=== PATIENT | male | born 1955 | race Caucasian/White ===

== ENCOUNTER → 2018-02-13 15:58 | Outpatient (CLI) | payer OTHER, SELFPAY ==
[2018-02-13 17:51] LABS: Absolute Lymphocyte Count 2.37 X10^3/ul (0.83-4.51); Basophil# 0.07 X10^3/uL; Basophil% 0.9 % (0-1); Eosinophil# 0.37 X10^3/uL; Eosinophils% 4.9 % (0-5); Hematocrit 42.9 % (40-54); Hemoglobin 14.6 g/dl (13.0-16.5); Lymphocyte # 2.37 X10^3/ul (4.0); Lymphocyte % 31.4 % (19-41); Mean Corpuscular Hgb 31.2 pg (27.0-32.0); Mean Corpuscular Volume 91.7 fL (80-94); Mean Platelet Vol. 9.8 fl (6.2-12.0); Monocyte# 0.73 X10^3/uL; Monocyte% 9.7 % (0-10); Platelet Count 235 K/mm3 (150-450); RBC Distribution Width CV 13.2 % (11.6-14.6); Red Blood Count 4.68 M/mm3 (4.6-6.2); White Blood Count 7.6 K/mm3 (4.4-11.0)
[2018-02-13 17:55] LABS: POSITIVE COUNT NO; POSITIVE DIFFERENTIAL NO; POSITIVE MORPHOLOGY NO
== END ==
PROVIDERS: Family Provider Internal Medicine; PCP Internal Medicine; Visit Provider Internal Medicine
DX: R89.9 Unspecified abnormal finding in specimens from other organs, systems and tissues (principal)
CPT/HCPCS: 36415; 85025

== ENCOUNTER → 2018-07-30 07:08 | Outpatient (CLI) | payer OTHER, SELFPAY ==
[2018-07-30 10:27] LABS: ALB/GLOB Ratio 1.1 RATIO (0.9-2.4); AST(SGOT) 20 U/L (15-37); Alanine Aminotransfer ALT/SGPT 29 U/L (16-61); Albumin, Serum 3.7 g/dL (3.2-5.0); Alkaline Phosphatase 54 U/L (45-117); Anion Gap 7 (5-15); BUN 17 mg/dL (7-18); BUN/Creat Ratio 15.5 RATIO (10-20); Calcium,Total 8.8 mg/dL (8.5-10.1); Chloride 105 mmol/L (98-107); Cholesterol 209 mg/dL (200); EST Glomerular Filtration Rate 72 mL/min (>60); Est Glom Filt Rate - Afr Amer 87 mL/min (>60); Globulin 3.5 g/dL (2.2-4.2); Glucose 90 mg/dL (74-106); High Density Lipoprotein 92 mg/dL; PSA,Total - Annual Screen 1.48 ng/mL (0.00-4.00); Potassium 4.1 mmol/L (3.5-5.1); Protein, Total 7.2 g/dL (6.4-8.2); Sodium Level 140 mmol/L (136-145); Triglycerides 56 mg/dL; Very Low Density Lipoprotein 11 mg/dL (5-40)
== END ==
PROVIDERS: Family Provider Internal Medicine; PCP Internal Medicine; Referring Provider Internal Medicine; Visit Provider Internal Medicine
DX: Z00.00 Encounter for general adult medical examination without abnormal findings (principal); E03.9 Hypothyroidism, unspecified
CPT/HCPCS: 36415; 80053; 80061; 84153; G0103

== ENCOUNTER → 2018-08-12 09:16 | Outpatient (CLI) | payer OTHER, SELFPAY ==
[2018-08-12 11:06] LABS: Thyroid Stim Hormone (TSH) 2.56 uIU/mL (0.358-3.74)
== END ==
PROVIDERS: Family Provider Internal Medicine; PCP Internal Medicine; Referring Provider Internal Medicine; Visit Provider Internal Medicine
DX: E03.9 Hypothyroidism, unspecified (principal)
CPT/HCPCS: 36415; 84439; 84443

== ENCOUNTER → 2018-10-16 16:00 | Outpatient (CLI) | payer OTHER, SELFPAY ==
[2018-09-16 09:29] VITALS: BMI 29.2
[2018-10-16 17:48] LABS: CRP < 2.90 mg/L (0.0-3.0)
[2018-10-18 16:09] LABS: Endomysial Antibody IgA Negative (Negative)
[2018-10-21 11:48] LABS: Immunoglobulin A 149 mg/dL (61-437); t-Transglutaminase IgA <2 U/mL (0-3)
--- OUTSIDE RECORDS SUMMARY | 2018-12-02 21:47 | XMS RPT_ITS ---
:1955 Author Organization OHIP Support Name Relationship Address Phone RAYSHAWN DELGADO Unavailable Unavailable + R Unavailable Unavailable Unavailable VNEESSA SANTIAGO Unavailable [address] + [place] [address] RAYSHAWN DELGADO Unavailable Unavailable + R Unavailable Unavailable Unavailable VENESSA SANTIAGO Unavailable [address] + [place] [address] R Unavailable Unavailable Unavailable VENESSA SANTIAGO Unavailable [address] + [place] [address] R Unavailable Unavailable Unavailable VENESSA SANTIAGO Unavailable [address] + [place] [address] R Unavailable Unavailable Unavailable VENESSA SANTIAGO Unavailable [address] + [place] [address] R Unavailable Unavailable Unavailable VENESSA SANTIAGO Unavailable [address] + [place] [address] R Unavailable Unavailable Unavailable VENESSA SANTIAGO Unavailable [address] + [place] [address] R Unavailable Unavailable Unavailable VENESSA SANTIAGO Unavailable [address] + [place] [address] R Unavailable Unavailable Unavailable VENESSA SANTIAGO Unavailable [address] + [place] [address] R Unavailable Unavailable Unavailable VENESSA SANTIAGO Unavailable [address] + [place] [address] R Unavailable Unavailable Unavailable VENESSA SANTIAGO Unavailable [address] + [place] [address] R Unavailable Unavailable Unavailable VENESSA SANTIAGO Unavailable [address] + [place] [address] Care Team Providers Name Role Phone Roberto George Attending Unavailable Abelardobour, George Referring Unavailable Oleghe, Efewongbe Primary Care Unavailable George Mejia Attending Unavailable Jabour, Vincmg Referring Unavailable Oleghe, Efewongbe Primary Care Unavailable Oleghe, Efewongbe Attending Unavailable Oleghe, Efewongbe Referring Unavailable Oleghe, Efewongbe Attending Unavailable Oleghe, Efewongbe Referring Unavailable Oleghe, Efewongbe Primary Care Unavailable Horn, Dasha Attending Unavailable Horn, Dasha Referring Unavailable Oleghe, Efewongbe Primary Care Unavailable Oleghe, Efewongbe Attending Unavailable Oleghe, Efewongbe Referring Unavailable Oleghe, Efewongbe Attending Unavailable Oleghe, Efewongbe Referring Unavailable Oleghe, Efewongbe Attending Unavailable Oleghe, Efewongbe Referring Unavailable Oleghe, Efewongbe Primary Care Unavailable Oleghe, Efewongbe Attending Unavailable Oleghe, Efewongbe Referring Unavailable Oleghe, Efewongbe Primary Care Unavailable Oleghe, Efewongbe Attending Unavailable Oleghe, Efewongbe Referring Unavailable Oleghe, Efewongbe Attending Unavailable Oleghe, Efewongbe Referring Unavailable Oleghe, Efewongbe Primary Care Unavailable Oleghe, Efewongbe Attending Unavailable Oleghe, Efewongbe Referring Unavailable PROBLEMS PROBLEMS DATE TYPE CONDITION / CODE ATTENDING STATUS SOURCE 11/20/2018 Unknown M10.9 - Gout, Dasha Koenig Active [place] unspecified / Community M10.9(ICD-10) Hospital Repository 11/18/2018 Unknown M79.671 - Pain in Oleghe, Active [place] right foot / [facility] M79.671(ICD-10) Hospital Repository 11/18/2018 Unknown M79.672 - Pain in Oleghe, Active [place] left foot / [facility] M79.672(ICD-10) Hospital Repository 11/18/2018 Unknown J44.9 - Chronic Oleghe, Active [place] obstructive [facility] pulmonary disease, Hospital unspecified / Repository J44.9(ICD-10) 11/18/2018 Unknown J45.909 - Oleghe, Active [place] Unspecified asthma, [facility] uncomplicated / Hospital J45.909(ICD-10) Repository 09/16/2018 Unknown 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Oleghe, Active [place] bowel syndrome with [facility] diarrhea / Hospital K58.0(ICD-10) Repository 08/12/2018 Unknown E03.9 - Oleghe, Active [place] Hypothyroidism, [facility] unspecified / Hospital E03.9(ICD-10) Repository 07/30/2018 Unknown Z00.00 - Encounter Oleghe, Active [place] for general adult [facility] without abnormal Repository findings / Z00.00(ICD-10) 02/13/2018 Unknown R89.9 - Unspecified Oleghe, Active [place] abnormal finding in [facility] specimens from Hospital other organs, Repository systems and tissues / R89.9(ICD-10) PROCEDURES PROCEDURES No Procedure Records FoundRESULTS RESULTS PULMONARY FUNCTION Observed: 11/26/2018 Status: F Source: [place] REPORT COMP 5:[address] [facility] REPOSITORY [facility] Pulmonary Services/Neurology [address] [id number] MR#: [id number] Acct: [id number] Name: WILVER SANTIAGO Rep #: [id number] : 1955 63 From: Pascual Roche MD Referring Dr: Bean John MD Status: REG CLI Ordering Dr: Date: Location: [facility] Sex: M C COMPLETE PULMONARY FUNCTION TEST INTERPRETATION Brief HPI: Patient is a 63 year old male, currently under the care of Dr. John, who presents to [facility] for complete pulmonary function tests secondary to diagnosis of COPD. Respiratory therapist reports good effort and reproducible results. Interpretation: Forced expiration spirometry shows a mild large airways obstructive ventilatory defect with an FEV1 of 106% predicted. There is no significant bronchodilator response by strict ATS criteria. Spirograms are of good quality and plateau slowly, indicating slowly emptying areas of the lungs. The respiratory flow volume loop shows decreased expiratory flow rates at high lung volumes consistent with small airways obstruction. Lung volumes by body plethysmography show an elevated total lung capacity at 8.79 L, 128% predicted. All other lung volumes are increased symmetrically. Diffusion capacity by carbon monoxide is elevated at 137% predicted. The airway resistance is normal. Compared to previous pulmonary function tests from 02/23/2015, there has been no significant change. Impression: Irreversible mild large airways obstructive ventilatory defect with no significant slip box changer the last 4 years. 11/26/18 0557 <Electronically signed by Pascual Roche MD> Date Pascual Roche MD CC: Pascual Roche MD; Bean Jonh MD Date Dictated: 11/25/18 1128 Date Transcribed: 11/25/181127 Merchandise Marker: MANOJ Signed URIC ACID Collected: 11/20/2018 Status: F Source: [facility] 2:[address] [facility] REPOSITORY TYPE CODE TESTS RESULT OUT OF RANGE REFERENCE UNITS LAB L501.1400 3.5-7.2 mg/dL High URIC 7.6 Result Comment: The drugs N-Acetylcysteine and Metamizole may falsely depress this assay. Performed By: #### L501.1400 #### [facility] [address] [place], [address] INTERNAL MEDICINE Observed: 11/19/2018 Status: F Source: [facility] OFFICE VISIT 10:[address] [facility] REPOSITORY [facility] [address] [place] [address] [place] [address] OFFICE VISIT Date of Service: 11/18/18 MR#: [id number] Acct: [id number] Name: WILVER SANTIAGO Rep #: [id number] : 1955 Provider: Bean John MD Age/Sex: 63/M Location: [facility] Status: Signed Intake Vital Signs11/18/18 Height 5 ft 11 in Intake Visit Reasons: 2 MO FU Chief Complaint: follow-up visit Is patient in pain?: No Allergies ampicillin Allergy (Verified 01/06/14 06:23) Hives Medications Multivitamin [Multiple Vitamins] 1 ea PO DAILY 07/17/17 [History Confirmed 07/17/17] albuterol sulfate HFA 90 mcg/actuation aerosol inhaler 1 puff INHALATION BID PRN #8.5 g 06/28/18 [Rx] budesonide 180 mcg/actuation breath activated powder inhaler 1 inh INHALATION DAILY #1 ea 06/28/18 [Rx] levothyroxine 75 mcg tablet 75 mcg PO DAILY #90 tab 06/28/18 [Rx] salmeterol 50 mcg/dose blister powder for inhalation 1 inh INHALATION Q12 #180 ea 07/01/18 [Rx] dicyclomine 20 mg tablet 20 mg PO .ACHS #60 tab 08/12/18 [Rx Confirmed 08/12/18] sertraline 50 mg tablet 50 mg PO DAILY #90 tab 09/16/18 [Rx Confirmed 09/16/18] PFSH Medical History Hypothyroidism (Chronic) Asthma (Chronic) COPD (chronic obstructive pulmonary disease) (Chronic) Frequent headaches (Acute) Gout (Acute) Normal colonoscopy (Acute) Depression (Resolved) Surgical History H/O hernia repair (Acute) Family History Mother Anxiety and depression Thyroid disorder Father Heart disease Sister CVA (cerebral vascular accident) Social History Smoking Status: Former smoker how long ago did patient quit smokin alcohol intake: current alcohol intake frequency: 0-2 drinks per day Alcohol type: beer substance use type: does not use what type of physical activity do you participate in: walking, weight training frequency: 3-4 times per week HPI HPI Chief Complaint: follow-up visit Details: WILVER SANTIAGO, is a 63yo M who presents to the office today for follow-up. Recently had a colonoscopy by Dr. Mejia due to ongoing irritable bowel syndrome. Testing was also negative for celiac disease. Still reports 3-4 watery bowel movements daily. Scheduled to follow-up with Dr. Mejia 2 weeks. He continues to note bilateral foot pain. 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 He will like another opinion. History of asthma. Doing well on his current inhalers. Denies any significant concerns at this time. ROS Const Constitutional: No weight change, body ache, chills, fatigue, sleep problems, fever(s), change in appetite, snoring, weakness, frequent falls, headache(s) or excessive sweating Eyes Eyes: No change in vision, eye pain, light sensitivity or blurry vision ENT ENT: No headache(s), abnormal hearing, ear pain, tinnitus, nasal congestion, sore throat or neck pain Resp Respiratory: No snoring, cough, shortness of breath or wheezing Cardio Cardiology: No excessive sweating, chest pain at rest, chest pain with exertion, shortness of breath, dyspnea on exertion, palpitations, orthopnea or lightheadedness Gastro GI: Positive for abdominal pain, diarrhea and bloating; no change in bowel habits, constipation, vomiting, nausea/dyspepsia or cramping Genitourinary Male: No painful urination, urinary incontinence, urinary frequency, urinary urgency, blood in urine, testicle pain or other Musc Musculoskeletal: Positive for joint pain and other (foot pain); no neck pain, abnormal walking, back pain, limited range of motion, numbness or tingling Skin Skin: No redness, dry skin, itching, lesions, wounds or rash Neuro Neurology: No weakness, frequent falls, headache(s), abnormal hearing, abnormal walking, numbness, tingling, abnormal speech, dizziness or memory loss Psych Psychiatric: No change in appetite, No memory loss, No anxiety, No depression, No Thoughts of harming yourself/Others Endo Endocrine: No fatigue, excessive sweating, cold intolerance, increased thirst/drinking, heat intolerance, flushing or increased hunger Aller/Imm Allergy/Immunologic: No wheezing, itchy eyes, hives or seasonal allergy symptoms Jam/Lymp Hematologic/Lymphatic: No easy bleeding, easy bruising or enlarged lymph nodes Exam Const General: cooperative, no acute distress Orientation: alert, awake, oriented x3 [facility] Head: normal to inspection, normocephalic, atraumatic Resp Effort AND Inspection: able to speak in complete sentences, normal respiratory effort Auscultation: Bilateral: Clear to Auscultation Cardio Rate: regular rate Rhythm: regular rhythm Heart Sounds: S1 normal, S2 normal GI Palpation: soft, no hepatosplenomegaly Neuro General: alert, oriented x3, awake, CN's II-XI intact bilaterally Extrem General: no clubbing, cyanosis or edema Psych Appearance: grossly normal Mental Status: mental status grossly normal Mood: congruent mood Affect: normal affect Assessment AND Plan 1. Irritable bowel syndrome with diarrhea K58.0 Plan Ongoing. Recent colonoscopy without any significant concerns. Screening for celiac disease also negative. Dietary changes discussed. ( FODMAP ). Continue follow-up with gastroenterology. 2. Pain in both feet M79.671; M79.672 Plan Chronic. No significant improvement so far. Refer to Dr. Koenig for second opinion. Orders Referrals: 3. Asthma J45.909 Plan Stable. No acute exacerbations. No recent PFTs, PFTs ordered. Continue current management. This note was generated with Yottaaation software. It may contain incorrect words, spelling, and punctuation that were not noted in checking the note before signing. Orders Orders: Plan Detail Other Orders Orders: Coding Level of Care Code Off vis,est,level 3 Diagnoses Irritable bowel syndrome with diarrhea K58.0 Pain in both feet M79.671; M79.672 Asthma J45.909 11/19/18 1001 <Electronically signed by Bean John MD> Date Bean John MD Cosigner Signature: Date (if applicable) CC: COLON BIOPSY (CHOOSE Observed: 11/04/2018 Status: F Source: [facility]) 12:[address] [facility] REPOSITORY Patient: WILVER SANTIAGO : 1955 (62/M) Acct Num: [id number] Phys: George Mejia Unit Num: [id number] Loc: [facility] Specimen: [id number] Received: 11/05/18 - 4326 Spec Type: COLON BX TISSUES 1 TISSUES: A. Ileum, NOS B. COLON BIOPSY GROSS DESCRIPTION A - Received in fixative is one container labeled with the patient's name and designated terminal ileum. The specimen consists of one irregular fragment of light raya soft tissue that measures 0.3 x 0.3 x 0.1 cm. The specimen is totally submitted in one cassette. B - Received in fixative is one container labeled with the patient's name and designated right and left colon. The specimen consists of multiple irregular fragments of light raya soft tissue that in aggregate measure 1.5 x 1 x 0.1 cm. The specimen is totally submitted in one cassette. / SJ:cornelio 11/06/18 TC:5 CPT: 57458 x2 HEADER OPERATION: Colonoscopy with biopsy PRE-OP DIAGNOSIS: Diarrhea TISSUE SUBMITTED: A - Terminal ileum biopsy, rule out Crohn's, B - Right and left colon, rule out microscopic colitis MICROSCOPIC DESCRIPTION Slides are reviewed. MICROSCOPIC DIAGNOSIS A. Terminal ileum, biopsy: No pathologic diagnosis. B. Right and left colon, biopsy: No significant pathologic change. No evidence of colitis. AM:cornelio 11/07/18 Signed Rakesh Burns DO 11/07/18 <signature on file> Performed By: #### PCOLBX #### [facility] [address] [place] [address]. [place], [place], [id number] CRP Collected: 10/16/2018 Status: F Source: [facility] 4:[address] [facility] REPOSITORY TYPE CODE TESTS RESULT OUT OF RANGE REFERENCE UNITS LAB L501.6710 0.0-3.0 mg/L Normal < 2.90 C-REACTIVE PROT Result Comment: C-Reactive Protein (CRP) provides useful information for the diagnosis, therapy and monitoring of inflammatory processes and associated diseases. For the evaluation of Relative Risk for Cardiovascular Disease, a High Sensitivity CRP (HSCRP) should be ordered. Performed By: #### L501.6710 #### [facility] [place], [place], [id number] CELIAC DISEASE Collected: 10/16/2018 Status: F Source: [facility] 4:[address] [facility] REPOSITORY TYPE CODE TESTS RESULT OUT OF RANGE REFERENCE UNITS LAB L3200.1400 61-437 mg/dL Normal IMMUNO A 149 Result Comment: Performed at: [address] [id number] [employer]: George Becker PhD, Phone: [phone] LAB Y1550.6854 0-3 U/mL Normal tTG IGA <2 Result Comment: Negative 0 - 3 Weak Positive 4 - 10 Positive >10 Tissue Transglutaminase (tTG) has been identified as the endomysial antigen. Studies have demonstr- ated that endomysial IgA antibodies have over 99% specificity for gluten sensitive enteropathy. LAB L3459.0108 Negative Normal ENDOMYSIAL IGA Negative Performed By: #### L3410.2400 #### [facility] (refer to report for specific site) refer to report for address and phone number INTERNAL MEDICINE Observed: 09/19/2018 Status: F Source: [place] OFFICE VISIT 2:25 PM [facility] [address] [place] [address] [address] [place] [address] OFFICE VISIT Date of Service: 09/16/18 MR#: [id number] Acct: [id number] Name: PAMELAWILVER E Rep #: [id number] : 1955 Provider: Bean John MD Age/Sex: 62/M Location[facility] Status: Signed Intake Vital Signs09/16/18 Height 5 ft 11 in Intake Visit Reasons: 1 mo f/u Chief Complaint: follow-up visit Is patient in pain?: No Allergies ampicillin Allergy (Verified 01/06/14 06:23) Hives Medications Multivitamin [Multiple Vitamins] 1 ea PO DAILY 07/17/17 [History Confirmed 07/17/17] albuterol sulfate HFA 90 mcg/actuation aerosol inhaler 1 puff INHALATION BID PRN #8.5 g 06/28/18 [Rx] budesonide 180 mcg/actuation breath activated powder inhaler 1 inh INHALATION DAILY #1 ea 06/28/18 [Rx] levothyroxine 75 mcg tablet 75 mcg PO DAILY #90 tab 06/28/18 [Rx] salmeterol 50 mcg/dose blister powder for inhalation 1 inh INHALATION Q12 #180 ea 07/01/18 [Rx] dicyclomine 20 mg tablet 20 mg PO .ACHS #60 tab 08/12/18 [Rx Confirmed 08/12/18] sertraline 50 mg tablet 50 mg PO DAILY #90 tab 09/16/18 [Rx Confirmed 09/16/18] [facility] Medical History Hypothyroidism (Chronic) Asthma (Chronic) COPD (chronic obstructive pulmonary disease) (Chronic) Frequent headaches (Acute) Gout (Acute) Depression (Resolved) Surgical History H/O hernia repair (Acute) Family History Mother Anxiety and depression Thyroid disorder Father Heart disease Sister CVA (cerebral vascular accident) Social History Smoking Status: Former smoker how long ago did patient quit smokin alcohol intake: current alcohol intake frequency: 0-2 drinks per day Alcohol type: beer substance use type: does not use what type of physical activity do you participate in: walking, weight training frequency: 3-4 times per week HPI HPI Chief Complaint: follow-up visit Details: WILVER SANTIAGO, is a 62yo M who presents to the office today for follow up of abdominal discomfort and increased watery bowel movements. He was started on Dicyclomine without any significant improvement. He denies blood in his stool or weight changes. He has noted worsening depression with the weather changes. Prior history of similar symptoms. No suicidal ideations or attempts. ROS Const Constitutional: No weight change, body ache, chills, fatigue, sleep problems, fever(s), change in appetite, snoring, weakness, frequent falls, headache(s) or excessive sweating Eyes Eyes: No change in vision, eye pain, light sensitivity or blurry vision ENT ENT: No headache(s), abnormal hearing, ear pain, tinnitus, nasal congestion, sore throat or neck pain Resp Respiratory: No snoring, cough, shortness of breath or wheezing Cardio Cardiology: No excessive sweating, chest pain at rest, chest pain with exertion, shortness of breath, dyspnea on exertion, palpitations, orthopnea or lightheadedness Gastro GI: Positive for abdominal pain, diarrhea, bloating and loose stools; no change in bowel habits, constipation, vomiting, nausea/dyspepsia or cramping Genitourinary Male: No painful urination, urinary incontinence, urinary frequency, urinary urgency, blood in urine, testicle pain or other Musc Musculoskeletal: No neck pain, abnormal walking, joint pain, back pain, limited range of motion, numbness or tingling Skin Skin: No redness, dry skin, itching, lesions, wounds or rash Neuro Neurology: No weakness, frequent falls, headache(s), abnormal hearing, abnormal walking, numbness, tingling, abnormal speech, dizziness or memory loss Psych Psychiatric: No change in appetite, No memory loss, No anxiety, Positive for depression, No Thoughts of harming yourself/Others Endo Endocrine: No fatigue, excessive sweating, cold intolerance, increased thirst/drinking, heat intolerance, flushing or increased hunger Aller/Imm Allergy/Immunologic: No wheezing, itchy eyes, hives or seasonal allergy symptoms Jam/Lymp Hematologic/Lymphatic: No easy bleeding, easy bruising or enlarged lymph nodes Assessment AND Plan 1. Irritable bowel syndrome with diarrhea K58.0 Plan Persisting. NO significant improvement on Dicyclomine and Zoloft. Thyroid function within normal. Refer to Dr. Mejia. Orders Referrals: 2. Seasonal affective disorder F33.8 Plan Prior history of. Now having difficulty coping. Increase Zoloft to 50mg daily. Light therapy. Advised to call with worsening symptoms or concerns. Otherwise, follow up in 2 months. Plan Detail Other Medications Changed: Coding Level of Care Code Off vis,est,level 3 Diagnoses Irritable bowel syndrome with diarrhea K58.0 Seasonal affective disorder F33.8 09/19/18 1425 <Electronically signed by Bean John MD> Date Bean John MD Cosigner Signature: Date (if applicable) CC: INTERNAL MEDICINE Observed: 08/13/2018 Status: F Source: [place] OFFICE VISIT 12:12 PM [facility] [place] [address] [place] [address] OFFICE VISIT Date of Service: 08/12/18 MR#: [id number] Acct: [id number] Name: WILVER SANTIAGO Rep #: [id number] : 1955 Provider: Bean John MD Age/Sex: 62/M Location[place] [facility] Status: Signed Intake Vital Signs08/12/18 Height 5 ft 11 in Intake Visit Reasons: 6 M F/U Chief Complaint: follow-up visit Is patient in pain?: No Allergies ampicillin Allergy (Verified 01/06/14 06:23) Hives Medications Multivitamin [Multiple Vitamins] 1 ea PO DAILY 07/17/17 [History Confirmed 07/17/17] albuterol sulfate HFA 90 mcg/actuation aerosol inhaler 1 puff INHALATION BID PRN #8.5 g 06/28/18 [Rx] budesonide 180 mcg/actuation breath activated powder inhaler 1 inh INHALATION DAILY #1 ea 06/28/18 [Rx] levothyroxine 75 mcg tablet 75 mcg PO DAILY #90 tab 06/28/18 [Rx] salmeterol 50 mcg/dose blister powder for inhalation 1 inh INHALATION Q12 #180 ea 07/01/18 [Rx] dicyclomine 20 mg tablet 20 mg PO .ACHS #60 tab 08/12/18 [Rx Confirmed 08/12/18] sertraline 25 mg tablet 25 mg PO DAILY #30 tab 08/12/18 [Rx Confirmed 08/12/18] PFSH Medical History Hypothyroidism (Chronic) Asthma (Chronic) COPD (chronic obstructive pulmonary disease) (Chronic) Frequent headaches (Acute) Gout (Acute) Depression (Resolved) Surgical History H/O hernia repair (Acute) Family History Mother Anxiety and depression Thyroid disorder Father Heart disease Sister CVA (cerebral vascular accident) Social History Smoking Status: Former smoker how long ago did patient quit smokin alcohol intake: current alcohol intake frequency: 0-2 drinks per day Alcohol type: beer substance use type: does not use what type of physical activity do you participate in: walking, weight training frequency: 3-4 times per week HPI HPI Chief Complaint: follow-up visit Details: WILVER SANTIAGO, is a 62yo M who presents to the office today for follow-up. He however has some concerns. He reports abdominal bloating increased bowel movements which has been ongoing for over 3 months. He denies any known precipitating or aggravating factors. He has tried probiotics and Benefiber with only minimal improvement. Last colonoscopy was about a year ago and this was within normal. He denies blood in his stool or any significant abdominal pain. There have been no weight changes, he also denies any history of reflux. ROS Const Constitutional: No weight change, body ache, chills, fatigue, sleep problems, fever(s), change in appetite, snoring, weakness, frequent falls, headache(s) or excessive sweating Eyes Eyes: No change in vision, eye pain, light sensitivity or blurry vision ENT ENT: No headache(s), abnormal hearing, ear pain, tinnitus, nasal congestion, sore throat or neck pain Resp Respiratory: No snoring, cough, shortness of breath or wheezing Cardio Cardiology: No excessive sweating, chest pain at rest, chest pain with exertion, shortness of breath, dyspnea on exertion, palpitations, orthopnea or lightheadedness Gastro GI: Positive for bloating; no abdominal pain, change in bowel habits, constipation, diarrhea, vomiting, nausea/dyspepsia or cramping Genitourinary Male: No painful urination, urinary incontinence, urinary frequency, urinary urgency, blood in urine, testicle pain or other Musc Musculoskeletal: No neck pain, abnormal walking, joint pain, back pain, limited range of motion, numbness or tingling Skin Skin: No redness, dry skin, itching, lesions, wounds or rash Neuro Neurology: No weakness, frequent falls, headache(s), abnormal hearing, abnormal walking, numbness, tingling, abnormal speech, dizziness or memory loss Psych Psychiatric: No change in appetite, No memory loss, No anxiety, No depression, No Thoughts of harming yourself/Others Endo Endocrine: No fatigue, excessive sweating, cold intolerance, increased thirst/drinking, heat intolerance, flushing or increased hunger Aller/Imm Allergy/Immunologic: No wheezing, itchy eyes, hives or seasonal allergy symptoms Jam/Lymp Hematologic/Lymphatic: No easy bleeding, easy bruising or enlarged lymph nodes Exam Const General: cooperative, no acute distress Orientation: alert, awake, oriented x3 HENMT Head: normal to inspection, normocephalic, atraumatic Resp Effort AND Inspection: able to speak in complete sentences, normal respiratory effort Auscultation: Bilateral: Clear to Auscultation Cardio Rate: regular rate Rhythm: regular rhythm Heart Sounds: S1 normal, S2 normal GI Palpation: soft, no hepatosplenomegaly Neuro General: alert, oriented x3, awake, CN's II-XI intact bilaterally Extrem General: no clubbing, cyanosis or edema Assessment AND Plan 1. Irritable bowel syndrome with diarrhea K58.0 Plan Current symptoms suggestive of irritable bowel syndrome. Prescription for dicyclomine and sertraline sent. Continue probiotics and Benefiber. Follow-up in 1 month. If no significant symptom improvement may consider repeat colonoscopy/biopsy. 2. Hypothyroidism E03.9 Plan Last thyroid function study was about a year ago and this was within normal. Repeat studies ordered. Continue current medication. Orders Orders: 3. Asthma J45.909 Plan Stable. Continue current medication. This note was generated with Yottaaation software. It may contain incorrect words, spelling, and punctuation that were not noted in checking the note before signing. Plan Detail Other Medications New: Coding Level of Care Code Off vis,est,level 4 Diagnoses Irritable bowel syndrome with diarrhea K58.0 Hypothyroidism E03.9 Asthma J45.909 08/13/18 1212 <Electronically signed by Bean John MD> Date Bean John MD Cosigner Signature: Date (if applicable) CC: THYROID STIM HORMONE Collected: 08/12/2018 Status: F Source: [place] (TSH) 9:[address] [facility] REPOSITORY TYPE CODE TESTS RESULT OUT OF RANGE REFERENCE UNITS LAB L501.9520 0.358-3.74 uIU/mL Normal TSH 2.56 Performed By: #### L501.9520, L506.0400 #### [facility] [address] [place], [address] T4 FREE DIRECT Collected: 08/12/2018 Status: F Source: [place] 9:[address] [facility] REPOSITORY TYPE CODE TESTS RESULT OUT OF RANGE REFERENCE UNITS LAB L506.0400 0.76-1.46 ng/dL Normal T4 FREE 0.80 DIRECT Performed By: #### L501.9520, L506.0400 #### [facility] [address] [place], [address] COMPREHENSIVE METABOLIC Collected: 07/30/2018 Status: F Source: [place] [facility] 7:[address] [facility] REPOSITORY TYPE CODE TESTS RESULT OUT OF RANGE REFERENCE UNITS LAB L501.0100 74-106 mg/dL Normal GLU 90 Result Comment: Please note revised GLUCOSE reference range effective 2017. LAB L501.1000 7-18 mg/dL Normal BUN 17 LAB L501.1100 0.70-1.30 mg/dL Normal CREAT,SERUM 1.10 Result Comment: The validity of the calculated GFR AND GFRAA in patients over 70 years has not been determined. Clinical correlation is essential. LAB L501.1110 >60 mL/min Normal EST GFR 72 Result Comment: Non- GFR Calc LAB L501.1115 >60 mL/min Normal EST GFR - AA 87 Result Comment: GFR Calc LAB L501.1300 10-20 RATIO Normal BUN/CRE 15.5 LAB L501.1500 6.4-8.2 g/dL T Normal PROT 7.2 LAB L501.1800 3.2-5.0 g/dL Normal ALB 3.7 LAB L501.1950 2.2-4.2 g/dL Normal GLOB 3.5 LAB L501.2000 0.9-2.4 RATIO Normal A/G 1.1 LAB L501.2200 8.5-10.1 mg/dL CA Normal 8.8 LAB L501.4100 15-37 U/L Normal AST 20 LAB L501.4305 45-117 U/L Normal ALK P 54 LAB L501.4405 16-61 U/L Normal ALT 29 LAB L501.4600 0.20-1.00 mg/dL T Normal BILI 0.90 LAB L501.5300 136-145 mmol/L NA Normal 140 LAB L501.5600 3.5-5.1 mmol/L K Normal 4.1 LAB L501.5900 98-107 mmol/L CL Normal 105 LAB L501.6100 21.0-32.0 mmol/L Normal CO2 28.0 LAB L501.6200 5-15 Normal GAP 7 Performed By: #### L500.4050, L500.4100, L501.9910 #### [facility] [address] [place], [place], [address] LIPID PROFILE Collected: 07/30/2018 Status: F Source: [place] 7:[address] [facility] REPOSITORY TYPE CODE TESTS RESULT OUT OF RANGE REFERENCE UNITS LAB L501.4900 200 mg/dL High CHOL 209 Result Comment: <200 mg/dL Desirable 200-240 mg/dL Borderline >240 mg/dL High Risk LAB L501.5000 mg/dL Normal TRIG 56 Result Comment: The drugs N-Acetylcysteine and Metamizole may falsely depress this assay. Serum Triglycerides Reference Interval Normal <150 mg/dL Borderline high 150 - 199 mg/dL High 200 - 499 mg/dL Very High > or = 500 mg/dL LAB L501.6400 mg/dL Normal HDL 92 Result Comment: The drugs N-Acetylcysteine and Metamizole may falsely depress this assay. Reference Range HDL <40 mg/dL Low HDL Cholesterol HDL >or= 60 mg/dL High HDL Cholesterol LAB L501.6500 0-130 mg/dL Normal LDL 106 LAB L501.6600 5-40 mg/dL Normal VLDL 11 Performed By: #### L500.4050, L500.4100, L501.9910 #### [facility] [address] [place], [place], [address] PSA,TOTAL - ANNUAL Collected: 07/30/2018 Status: F Source: [place] SCREEN 7:[address] [facility] REPOSITORY TYPE CODE TESTS RESULT OUT OF RANGE REFERENCE UNITS LAB L501.9910 0.00-4.00 ng/mL Normal PSA,TOT 1.48 SCREEN Result Comment: This test was performed using the TPSA assay method for the [employer] chemistry system. Values obtained with different assay methods cannot be used interchangably. When changing PSA assays in the course of monitoring a patient, additional sequential testing should be carried out to confirm baseline values. Performed By: #### L500.4050, L500.4100, L501.9910 #### [facility] [place], [address] INTERNAL MEDICINE Observed: 02/15/2018 Status: F Source: [place] OFFICE VISIT 4:[address] [facility] REPOSITORY [facility] [address] [place] [address] [place] [address] OFFICE VISIT Date of Service: 02/08/18 MR#: [id number] Acct: [id number] Name: WILVER SANTIAGO Rep #: [id number] : 1955 Provider: Bean John MD Age/Sex: 62/M Location[facility] Status: Draft Intake Vital Signs02/08/18 Height 5 ft 11 in Intake Visit Reasons: 6 M FU Chief Complaint: follow-up visit Is patient in pain?: No Allergies ampicillin Allergy (Verified 01/06/14 06:23) Hives Medications Albuterol IH (ProAir) [Proair Hfa] 1 puff INHALATION BID PRN 01/06/14 [History Confirmed 01/06/14] Budesonide Inhaler 180 mcg [Pulmicort Inhaler 180 mcg] 1 puff IN DAILY 01/06/14 [History Confirmed 07/17/17] Levothyroxine [Synthroid] 75 mcg PO DAILY 01/06/14 [History Confirmed 07/17/17] Salmeterol [Serevent Diskus] 1 puff INHALATION Q12 01/06/14 [History Confirmed 07/17/17] Multivitamin [Multiple Vitamins] 1 ea PO DAILY 07/17/17 [History Confirmed 07/17/17] PFSH Medical History Hypothyroidism (Chronic) Asthma (Chronic) COPD (chronic obstructive pulmonary disease) (Chronic) Frequent headaches (Acute) Gout (Acute) Depression (Resolved) Surgical History H/O hernia repair (Acute) Family History Mother Anxiety and depression Thyroid disorder Father Heart disease Sister CVA (cerebral vascular accident) Social History Smoking Status: Former smoker how long ago did patient quit smokin alcohol intake: current alcohol intake frequency: 0-2 drinks per day Alcohol type: beer substance use type: does not use what type of physical activity do you participate in: walking, weight training frequency: 3-4 times per week HPI HPI Chief Complaint: follow-up visit Details: WILVER PAMELA, is a 62yo M who presents to the office today for follow-up. He has no concerns at this time. At his last visit, he was sent for chronic persistent sinusitis. Symptoms are said to have resolved. He denies any recent exacerbation of his asthma. He has been using his inhalers as recommended. He also currently is on Synthroid due to history of hypothyroidism. He denies any worsening fatigue or change in his bowel habit. He also denies any persistent leg swelling. ROS Const Constitutional: No weight change, body ache, chills, fatigue, sleep problems, fever(s), change in appetite, snoring, weakness, frequent falls, headache(s) or excessive sweating Eyes Eyes: No change in vision, eye pain, light sensitivity or blurry vision ENT ENT: No headache(s), abnormal hearing, ear pain, tinnitus, nasal congestion, sore throat or neck pain Resp Respiratory: No snoring, cough, shortness of breath or wheezing Cardio Cardiology: No excessive sweating, chest pain at rest, chest pain with exertion, shortness of breath, dyspnea on exertion, palpitations, orthopnea or lightheadedness Gastro GI: No abdominal pain, change in bowel habits, constipation, diarrhea, vomiting, nausea/dyspepsia or cramping Musc Musculoskeletal: No neck pain, abnormal walking, joint pain, back pain, limited range of motion, numbness or tingling Skin Skin: No redness, dry skin, itching, lesions, wounds or rash Neuro Neurology: No weakness, frequent falls, headache(s), abnormal hearing, abnormal walking, numbness, tingling, abnormal speech, dizziness or memory loss Psych Psychiatric: No change in appetite, No memory loss, No anxiety, No depression, No Thoughts of harming yourself/Others Endo Endocrine: No fatigue, excessive sweating, cold intolerance, increased thirst/drinking, heat intolerance, flushing or increased hunger Aller/Imm Allergy/Immunologic: No wheezing, itchy eyes, hives or seasonal allergy symptoms Jam/Lymp Hematologic/Lymphatic: No easy bleeding, easy bruising or enlarged lymph nodes Exam Const General: cooperative, no acute distress Orientation: alert, awake, oriented x3 HENMT Head: normal to inspection, normocephalic, atraumatic Resp Effort AND Inspection: able to speak in complete sentences, normal respiratory effort Auscultation: Bilateral: Clear to Auscultation Cardio Rate: regular rate Rhythm: regular rhythm Heart Sounds: S1 normal, S2 normal GI Palpation: soft, no hepatosplenomegaly Neuro General: alert, oriented x3, awake, CN's II-XI intact bilaterally Extrem General: no clubbing, cyanosis or edema Assessment AND Plan 1. Malaise and fatigue R53.81; R53.83 Plan Resolved. Patient has no concerns at this time. Advised to increase physical activity. Follow-up. 2. Asthma J45.909 Plan Stable. No recent exacerbations. Continue current management. 3. Hypothyroidism E03.9 Plan Stable. He has no symptoms concerning for poor correction. Thyroid studies in 6 months. Follow-up in 6 months. Preventive visit also in 6 months This note was generated with Yottaaation software. It may contain incorrect words, spelling, and punctuation that were not noted in checking the note before signing. Orders Orders: Plan Detail Other Orders Orders: Follow Up 6 Months Coding Level of Care Code Off vis,est,level 3 Diagnoses Malaise and fatigue R53.81; R53.83 Asthma J45.909 Hypothyroidism E03.9 Date Bean John MD Cosigner Signature: Date (if applicable) CC: CBC W/DIFF, AUTOMATED Collected: 02/13/2018 Status: F Source: [place] 4:[address] [facility] REPOSITORY TYPE CODE TESTS RESULT OUT OF RANGE REFERENCE UNITS LAB L100.1000 4.4-11.0 K/mm3 Normal WBC 7.6 LAB L100.1200 4.6-6.2 M/mm3 Normal RBC 4.68 LAB L100.1300 13.0-16.5 g/dl Normal HGB 14.6 LAB L100.1400 40-54 % Normal HCT 42.9 LAB L100.1500 80-94 fL Normal MCV 91.7 LAB L100.1600 27.0-32.0 pg Normal MCH 31.2 LAB L100.1700 32-36 g/gl Normal MCHC 34.0 LAB L100.1810 11.6-14.6 % Normal RDW CV 13.2 LAB L100.1820 35.1-43.9 fl High RDW SD 44.0 LAB L100.1900 150-450 K/mm3 Normal PLT 235 LAB L100.2000 6.2-12.0 fl Normal MPV 9.8 LAB L100.2100 47-70 % Normal NEUT% 53.0 LAB L100.2200 19-41 % Normal LY% 31.4 LAB L100.2300 0-10 % Normal MONO% 9.7 LAB L100.2400 0-5 % Normal EO% 4.9 LAB L100.2500 0-1 % Normal BASO% 0.9 LAB L100.2550 0.0-0.9 % Normal IM GRAN % 0.100 Result Comment: IG% - Immature Granulocytes (promyelocytes, myelocytes and metamyelocytes) > 1% indicates that a LEFT SHIFT is Present. LAB L100.2620 2.0-7.7 X10 3/uL Normal Absolute Neut 4.0 LAB L100.2720 0.83-4.51 X10 3/ul Normal Absolute Lymph 2.37 Performed By: #### L100.0100 #### [facility] [address] [place], [address] ALLERGIES ALLERGIES DATE TYPE / CODE NAME / CODE REACTION SEVERITY SOURCE 01/06/2014 Drug ampicillin/F Hives Unknown [facility] Allergy/4160 [id number]([facility] [address](SNOMED NORM) Repository CT) ENCOUNTERS ENCOUNTERS ADMIT/DISCHARGE ACCOUNT ADMITTING ENCOUNTER LOCATION SOURCE NUMBER CLASS 11/25/2018 [id number] Ambulatory [address] ing:PSN Repository 11/20/2018 [id number] Ambulatory [address] ing:MTLAB Repository 11/18/2018/ [id number] Ambulatory BMSBuilding:B [place] 9 0 MS.BIM [facility] Repository 11/04/2018 [id number] Ambulatory [address] ing:LABSPEC Repository 10/16/2018 [id number] Ambulatory [place] 2 [facility] ing:MTLAB Repository 09/16/2018/ [id number] Ambulatory BMSBuilding:B [place] 8 1 MS.BIM [facility] Repository 08/12/2018 [id number] Ambulatory [place] 1 [facility] ing:MTLAB Repository 08/12/2018/ [id number] Ambulatory BMSBuilding:B [place] 8 9 MS.[facility] Repository 07/30/2018 [id number] Ambulatory [place] 3 [facility] ing:MTLAB Repository 02/14/2018 [id number] Ambulatory BMSBuilding:B [place] 2 MS.BIM [facility] Repository 02/13/2018 [id number] Ambulatory [place] 1 [facility] ing:MTLAB Repository 02/08/2018/ [id number] Ambulatory BMSBuilding:B [place] 8 8 MS.[facility] Repository PAYERS PAYERS ENCOUNTER GUARANTOR PAYER SUBSCRIBER SOURCE 11/25/2018 WILVER Olivo Primary VENESSA [place] [id number] Insurance:MEDICAL WILLIAMSDOB: [facility] [place] Number: Repository [id number]: 330 [id number] [phone] (HP) Date:4401-41-[address] [address]JU: 11/25/2018 Secondary NOT GIVENUNK [place] Insurance:SELF PAY [facility] Number: Effective Repository Date:2018-11-18 11/20/2018 WILVER Olivo Primary V[place]ESSA [place] [id number] Insurance:MEDICAL WILLIAMSDOB: [facility] 4783-33-[place]VDM[place] Number: Repository [phone]: 330 [id number] [phone] (HP) Date:8131-12-24PH [address] [place] [address]ET: 11/20/2018 Secondary NOT GIVENUNK [place] Insurance:SELF PAY [facility] Number: Effective Repository Date:2018-11-20 11/18/2018 WILVER Olivo Primary [address] [place] [id number] Insurance:MEDICAL WILLIAMSDOB: [facility] 6715[place]80-[place] Number: Repository [address]Fjl: 330 [id number] [phone] (HP) Date:1121-29-14MM [address] [address]WY: 11/18/2018 Secondary NOT GIVENUNK [place] Insurance:SELF PAY [facility] Number: Effective Repository Date:2018-11-08 11/04/2018 WILVER Olivo Primary [address] [id number] Insurance:MEDICAL WILLIAMSDOB: [facility] 7212[place]88[place]KB[place] Number: Repository [address]Vyb: 330 [id number] [phone] (HP) Date:6840-70-48AK [address] [address]EX: 11/04/2018 Secondary NOT GIVENUNK [place] Insurance:SELF PAY [facility] Number: Effective Repository Date:2018-11-04 10/16/2018 WILVER Olivo Primary [address] [id number] Insurance:MEDICAL WILLIAMSDOB: [facility] 8467-57-[place]IRS[place] Number: Repository [id number]: 330 [id number] [phone] (HP) Date:0920-25-64YZ [address] [address]CA: 10/16/2018 Secondary NOT GIVENUNK [place] Insurance:SELF PAY [facility] Number: Effective Repository Date:2018-10-16 09/16/2018 WILVER Olivo Primary [place] [id number] Insurance:MEDICAL WILLIAMSDOB: [facility] 7242-98-[place]UL[place] Number: Repository [id number]: 330 [id number] [phone] (HP) Date:3661-10-13YU [address] [place] [address]IY: 09/16/2018 Secondary NOT GIVENUNK [place] Insurance:SELF PAY [facility] Number: Effective Repository Date:2018-09-16 08/12/2018 WILVRE Olivo Primary [place] [id number] Insurance:MEDICAL WILLIAMSDOB: [facility] 4811-49-87[place]CP[place], [place] Number: Repository [address]Rjc: 330 [id number] [phone] (HP) Date:0479-44-97VW [address] [place] [address]XP: 08/12/2018 Secondary NOT GIVENUNK [place] Insurance:SELF PAY [facility] Number: Effective Repository Date:2018-08-12 08/12/2018 WILVER Olivo Primary [address] [id number] Insurance:MEDICAL WILLIAMSDOB: [facility] [id number] Number: Repository [address]Opx: 330 [id number] [phone] (HP) Date:3108-11-88CH [address] [address]GN: 08/12/2018 Secondary NOT GIVENUNK [place] Insurance:SELF PAY [facility] Number: Effective Repository Date:2018-08-12 07/30/2018 WILVER Olivo Primary V[place]SA [place] [id number] Insurance:MEDICAL WILLIAMSDOB: [facility] 9683-89-[place]FOR[place] Number: Repository [phone]: 330 [id number] [phone] (HP) Date:0722-65-56NB [address] [place] [address]FL: 07/30/2018 Secondary NOT GIVENUNK [place] Insurance:SELF PAY [facility] Number: Effective Repository Date:2018-07-30 02/14/2018 WILVER Olivo Primary VENESSA [id number] Insurance:MEDICAL WILLIAMSDOB: [facility] 8195-10-50ZQY[place], [place] Number: Repository [id number]: 330 [id number] [phone] (HP) Date:5396-13-62SG [address] [address]MK: 02/14/2018 Secondary NOT GIVENUNK [place] Insurance:SELF PAY [facility] Number: Effective Repository Date:2017-10-06 02/13/2018 WILVER Olivo Primary VENESSA [id number] Insurance:MEDICAL WILLIAMSDOB: [facility] 2088-34-[place]DYTCl[place], [place] Number: Repository [id number]: [phone]) [id number] [phone] (HP) Date:7171-34-83EP [address] [address]FN: 02/13/2018 Secondary NOT GIVENUNK [place] Insurance:SELF PAY [facility] Number: Effective Repository Date:2018-02-13 02/08/2018 WILVER Olivo Primary VENESSA [id number] Insurance:MEDICAL WILLIAMSDOB: [facility] 7107-75-[place]JM[place], [place] Number: Repository [id number]: 330 [id number] [phone] (HP) Date:8754-37-03SO [address] [address]AL: 02/08/2018 Secondary NOT GIVENUNK [place] Insurance:SELF PAY [facility] Number: Effective Repository Date:2018-02-08
== END ==
PROVIDERS: Family Provider Internal Medicine; PCP Internal Medicine; Referring Provider Internal Medicine Gastroenterology; Visit Provider Internal Medicine Gastroenterology
DX: R19.7 Diarrhea, unspecified (principal)
CPT/HCPCS: 36415; 82784; 83516; 86140; 86255

== ENCOUNTER → 2018-11-04 15:56 | Outpatient (CLI) | payer OTHER, SELFPAY ==
[2018-09-16 09:29] VITALS: BMI 29.2
--- NOTE | 2018-11-04 12:40 | COLBX_PTH ---
PATIENT: WILVER SANTIAGO LOC: ED U#:[id number] AGE/SX: 69/M ROOM: RE11/04/[address]: Dr. George Mejia MD : [id number] BED: DIS: SPEC #: [id number] RECD: 11/05/18 14:59 STATUS: ROBER REAlen #: [id number] ERICA: 11/04/18 12:[address]: George Mejia DEPT: SURGICAL PATHOLOGY RECD BY: Milind Lagos ENTERED: 11/06/18 09:08 SP TYPE: COLON BX OTHR DR: Dr. Bean John MD [facility] Tissues: A - Ileum, NOS B - COLON BIOPSY Procedures: Surgery Specimen Level IV HEADER OPERATION: Colonoscopy with biopsy PRE-OP DIAGNOSIS: Diarrhea TISSUE SUBMITTED: A - Terminal ileum biopsy, rule out Crohn's, B - Right and left colon, rule out microscopic colitis MICROSCOPIC DIAGNOSIS A. Terminal ileum, biopsy: No pathologic diagnosis. B. Right and left colon, biopsy: No significant pathologic change. No evidence of colitis. AM:cornelio 11/07/18 MICROSCOPIC DESCRIPTION Slides are reviewed. GROSS DESCRIPTION A - Received in fixative is one container labeled with the patient's name and designated terminal ileum. The specimen consists of one irregular fragment of light raya soft tissue that measures 0.3 x 0.3 x 0.1 cm. The specimen is totally submitted in one cassette. B - Received in fixative is one container labeled with the patient's name and designated right and left colon. The specimen consists of multiple irregular fragments of light raya soft tissue that in aggregate measure 1.5 x 1 x 0.1 cm. The specimen is totally submitted in one cassette. / SJ:cornelio 11/06/18 TC:5 CPT: 92958 x2
== END ==
PROVIDERS: Family Provider Internal Medicine; PCP Internal Medicine; Referring Provider Internal Medicine Gastroenterology; Visit Provider Internal Medicine Gastroenterology
DX: R19.7 Diarrhea, unspecified (principal)
CPT/HCPCS: 88305

== ENCOUNTER → 2018-11-20 14:04 | Outpatient (CLI) | payer OTHER, SELFPAY ==
[2018-11-18 09:08] VITALS: BMI 29.1
[2018-11-20 15:49] LABS: Uric Acid 7.6 mg/dL (3.5-7.2)
--- OUTSIDE RECORDS SUMMARY | 2019-01-25 11:11 | XMS RPT_ITS ---
:1955 Author Organization [place] Support Name Relationship Address Phone RAYSHAWN DELGADO Unavailable Unavailable + R Unavailable Unavailable Unavailable VENESSA SANTIAGO Unavailable [address] + [place] [address] RAYSHAWN DELGADO Unavailable Unavailable + R Unavailable Unavailable Unavailable VENESSA SANTIAGO Unavailable [address] + [place] [address] R Unavailable Unavailable Unavailable VENESSA SANTIAGO Unavailable [address] + [place] [address] R Unavailable Unavailable Unavailable VENESSA SANTIAGO Unavailable [address] + [place] [address] R Unavailable Unavailable Unavailable VENESSA SANTIAGO Unavailable [address] + [place] [address] R Unavailable Unavailable Unavailable VENESSA SANTIAGO Unavailable [address] + [place] [address] R Unavailable Unavailable Unavailable VENESSA SANTIAGO Unavailable [address] + [place] [address] R Unavailable Unavailable Unavailable VENESSA SANTIAGO Unavailable [address] + [place] [address] R Unavailable Unavailable Unavailable VENESSA SANTIAGO Unavailable [address] + [place] [address] R Unavailable Unavailable Unavailable VENESSA SANTIAGO Unavailable [address] + [place] [address] R Unavailable Unavailable Unavailable VENESSA SANTIAGO Unavailable [address] + [place] [address] R Unavailable Unavailable Unavailable VENESSA SANTIAGO Unavailable [address] + [place] [address] Care Team Providers Name Role Phone Roberto [...] Unknown M10.9 - Gout, Dasha Koenig Active [facility] unspecified / Community M10.9(ICD-10) Hospital Repository 11/18/2018 Unknown M79.671 - Pain in [place], Active [place] right foot / [facility] M79.671(ICD-10) Hospital Repository 11/18/2018 Unknown M79.672 - Pain in [place], Active [place] left foot / [facility] M79.672(ICD-10) Hospital Repository 11/18/2018 Unknown J44.9 - Chronic [place], Active [place] obstructive [facility] pulmonary disease, Hospital unspecified / Repository J44.9(ICD-10) 11/18/2018 Unknown J45.909 - Oleghe, Active [place] Unspecified asthma, [facility] uncomplicated / Hospital J45.909(ICD-10) Repository 09/16/2018 Unknown 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[place], 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 / Hospital K58.0(ICD-10) Repository 08/12/2018 Unknown E03.9 - Oleghe, Active [place] Hypothyroidism, [facility] unspecified / Hospital E03.9(ICD-10) Repository 07/30/2018 Unknown Z00.00 - Encounter Oleghe, Active [place] for general adult [facility] without abnormal Repository findings / Z00.00(ICD-10) 02/13/2018 Unknown R89.9 - Unspecified [place], Active [place] abnormal finding in [facility] specimens from Hospital other organs, Repository systems and tissues / R89.9(ICD-10) PROCEDURES PROCEDURES No Procedure Records FoundRESULTS RESULTS PULMONARY FUNCTION Observed: 11/26/2018 Status: F Source: [facility] REPORT COMP 5:57 AM [facility] REPOSITORY [facility] Pulmonary Services/Neurology [address] [id number] MR#: [id number] Acct: [id number] Name: WILVER SANTIAGO Rep #: [id number] : 1955 63 From: Pascual Roche MD Referring Dr: Bean John MD Status: REG CLI Ordering Dr: Date: Location: [facility] Sex: M C COMPLETE PULMONARY FUNCTION TEST INTERPRETATION Brief HPI: Patient is a 63 year old male, currently under the care of Dr. John, who presents to [facility] for complete pulmonary function tests secondary to [...] airways obstructive ventilatory defect with no significant change consultant the last 4 years. 11/26/18 0557 <Electronically signed by Pascual Roche MD> Date Pascual Rohce MD CC: Pascual Roche MD; Bean John MD Date Dictated: 11/25/18 1128 Date Transcribed: 11/25/181127 [employer] Jewelry: MANOJ Signed URIC ACID Collected: 11/20/2018 Status: F Source: [facility] 2:12 PM [facility] REPOSITORY TYPE CODE TESTS RESULT OUT OF RANGE REFERENCE UNITS LAB L501.1400 3.5-7.2 mg/dL High URIC 7.6 Result Comment: The drugs N-Acetylcysteine and Metamizole may falsely depress this assay. Performed By: #### L501.1400 #### [facility] [address] [place], [address] INTERNAL MEDICINE Observed: 11/19/2018 Status: F Source: [facility] OFFICE VISIT 10:01 AM [facility] REPOSITORY [facility] [address] [place] [address] [place] [address] OFFICE VISIT Date of Service: 11/18/18 MR#: [id number] Acct: [id number] Name: WILVER SANTIAGO Rep #: [id number] : 1955 Provider: Bean John MD Age/Sex: 63/M Location: [facility] Status: Signed Intake Vital Signs11/18/18 Height [...] pain. He has been seen by 2 order entry clerk without significant help per patient. He will [...] acute distress Orientation: alert, awake, oriented x3 [facility] Head: normal to inspection, normocephalic, [...] current management. This note was generated with [employer] software. It may contain incorrect words, spelling, [...] BIOPSY (CHOOSE Observed: 11/04/2018 Status: F Source: [facility]) 12:40 PM [facility] REPOSITORY Patient: WILVER SANTIAGO : 1955 (62/M) Acct Num: [id number] Phys: George Mejia Unit Num: [id number] Loc: [facility]SPEC Specimen: [id number] Received: 11/05/18 - 9133 Spec Type: COLON BX TISSUES 1 TISSUES: [...] one cassette. / SJ:cornelio 11/06/18 TC:5 CPT: 60341 x2 HEADER OPERATION: Colonoscopy with biopsy PRE-OP [...] on file> Performed By: #### PCOLBX #### [facility] [address] [place] [address]. [place], [place], [id number] CRP Collected: 10/16/2018 Status: F Source: [facility] 4:11 PM [facility] REPOSITORY TYPE CODE TESTS RESULT OUT OF RANGE REFERENCE UNITS LAB L501.6710 0.0-3.0 mg/L Normal < 2.90 C-REACTIVE PROT Result Comment: C-Reactive Protein (CRP) provides useful information for the diagnosis, therapy and monitoring of inflammatory processes and associated diseases. For the evaluation of Relative Risk for Cardiovascular Disease, a High Sensitivity CRP (HSCRP) should be ordered. Performed By: #### L501.6710 #### [facility] [place], [place], [id number] CELIAC DISEASE Collected: 10/16/2018 Status: F Source: [facility] 4:11 PM [facility] REPOSITORY TYPE CODE TESTS RESULT OUT OF RANGE REFERENCE UNITS LAB L3200.1400 61-437 mg/dL Normal IMMUNO A 149 Result Comment: Performed at: [address] [id number] Outbound Supervisor: George Becker PhD, Phone: [phone] LAB S4146.2136 0-3 U/mL Normal tTG IGA <2 Result Comment: Negative 0 - 3 Weak Positive 4 - 10 Positive >10 Tissue Transglutaminase (tTG) has been identified as the endomysial antigen. Studies have demonstr- ated that endomysial IgA antibodies have over 99% specificity for gluten sensitive enteropathy. LAB L3686.5873 Negative Normal ENDOMYSIAL IGA Negative Performed By: #### L3410.2400 #### [facility] (refer to report for specific site) refer to report for address and phone number INTERNAL MEDICINE Observed: 09/19/2018 Status: F Source: [place] OFFICE VISIT 2:25 PM [facility] Medicine [address] [place] [address] [place] [address] OFFICE VISIT Date of Service: 09/16/18 MR#: [id number] Acct: [id number] Name: PAMELAWILVER E Rep #: [id number] : 1955 Provider: Bean John MD Age/Sex: 62/M Location: [facility] [place] [place] Status: Signed Intake Vital Signs09/16/18 Height 5 [...] DAILY #90 tab 09/16/18 [Rx Confirmed 09/16/18] [facility] Medical History Hypothyroidism (Chronic) Asthma (Chronic) COPD [...] F Source: [place] OFFICE VISIT 12:12 PM [facility] Internal Medicine [facility] [place] [address] OFFICE VISIT Date of Service: 08/12/18 MR#: [id number] Acct: [id number] Name: WILVER SANTIAGO Rep #: [id number] : 1955 Provider: Bean John MD Age/Sex: 62/M Location: [facility] [place] [place] Status: Signed Intake Vital Signs08/12/18 Height 5 [...] current medication. This note was generated with [employer] software. It may contain incorrect words, spelling, [...] Status: F Source: [place] ([facility]) 9:20 AM [facility] REPOSITORY TYPE CODE TESTS RESULT OUT OF RANGE REFERENCE UNITS LAB L501.9520 0.358-3.74 uIU/mL Normal TSH 2.56 Performed By: #### L501.9520, L506.0400 #### [facility] [address] [place], [address] T4 FREE DIRECT Collected: 08/12/2018 Status: F Source: [place] 9:20 AM [facility] REPOSITORY TYPE CODE TESTS RESULT OUT OF RANGE REFERENCE UNITS LAB L506.0400 0.76-1.46 ng/dL Normal T4 FREE 0.80 DIRECT Performed By: #### L501.9520, L506.0400 #### [facility] [address] [place], [address] COMPREHENSIVE METABOLIC Collected: 07/30/2018 Status: F Source: [place] [facility] 7:15 AM [facility] REPOSITORY TYPE CODE TESTS RESULT OUT OF [...] Performed By: #### L500.4050, L500.4100, L501.9910 #### [facility] [address] [place], [place], [address] LIPID PROFILE Collected: 07/30/2018 Status: F Source: [facility] 7:15 AM [facility] REPOSITORY TYPE CODE TESTS RESULT OUT OF [...] Performed By: #### L500.4050, L500.4100, L501.9910 #### [facility] [address] [place], [place], [address] PSA,TOTAL - ANNUAL Collected: 07/30/2018 Status: F Source: [place] SCREEN 7:15 AM [facility] REPOSITORY TYPE CODE TESTS RESULT OUT OF RANGE REFERENCE UNITS LAB L501.9910 0.00-4.00 ng/mL Normal PSA,TOT 1.48 SCREEN Result Comment: This test was performed using the TPSA assay method for the [employer] chemistry system. Values obtained with different assay methods cannot be used interchangably. When changing PSA assays in the course of monitoring a patient, additional sequential testing should be carried out to confirm baseline values. Performed By: #### L500.4050, L500.4100, L501.9910 #### [facility] [place], [address] INTERNAL MEDICINE Observed: 02/15/2018 Status: F Source: [place] OFFICE VISIT 4:58 PM [facility] REPOSITORY [facility] [address] [place] [address] OFFICE VISIT Date of Service: 02/08/18 MR#: [id number] Acct: [id number] Name: WILVER SANTIAGO Rep #: [id number] : 1955 Provider: Bean John MD Age/Sex: 62/M Location: [facility] [place] [place] Status: Draft Intake Vital Signs02/08/18 Height 5 [...] 6 months This note was generated with [employer] software. It may contain incorrect words, spelling, [...] 02/13/2018 Status: F Source: [place] 4:02 PM [facility] REPOSITORY TYPE CODE TESTS RESULT OUT OF [...] Lymph 2.37 Performed By: #### L100.0100 #### [facility] [address] [place], [address] ALLERGIES ALLERGIES DATE TYPE / CODE NAME / CODE REACTION SEVERITY SOURCE 01/06/2014 Drug ampicillin/F Hives Unknown [facility] Allergy/4160 [id number]([facility] [address](SNOMED NORM) Repository CT) ENCOUNTERS ENCOUNTERS ADMIT/DISCHARGE ACCOUNT ADMITTING ENCOUNTER LOCATION SOURCE NUMBER CLASS 11/25/2018 [id number] Ambulatory [address] ing:PSN Repository 11/20/2018 [id number] Ambulatory [address] ing:MTLAB Repository 11/18/2018/ [id number] Ambulatory BMSBuilding:B [place] 9 0 [place] [facility] Repository 11/04/2018 [id number] Ambulatory [address] ing:LABSPEC Repository 10/16/2018 [id number] Ambulatory [place] [facility] ing:MTLAB Repository 09/16/2018/ [id number] Ambulatory BMSBuilding:B [place] 8 1 [place] [facility] Repository 08/12/2018 [id number] Ambulatory [place] [facility] ing:MTLAB Repository 08/12/2018/ [id number] Ambulatory BMSBuilding:B [place] 8 9 [place].[facility] Repository 07/30/2018 [id number] Ambulatory [place] [facility] ing:MTLAB Repository 02/14/2018 [id number] Ambulatory BMSBuilding:B [place] 2 [place] [facility] Repository 02/13/2018 [id number] Ambulatory [place] [facility] ing:MTLAB Repository 02/08/2018/ [id number] Ambulatory BMSBuilding:B [place] 8 8 MS.[facility] Repository PAYERS PAYERS ENCOUNTER GUARANTOR PAYER SUBSCRIBER SOURCE 11/25/2018 WILVER Olivo Primary VENESSA [place] [id number] Insurance:MEDICAL WILLIAMSDOB: [facility] [id number] Number: Repository [address]Mkr: 330 [id number] [phone] (HP) Date:5438-44-35XR[address] [address]XG: 11/25/2018 Secondary NOT GIVENUNK [place] Insurance:SELF PAY [facility] Number: Effective Repository Date:2018-11-18 11/20/2018 WILVER Olivo Primary VENESAS [place] [id number] Insurance:MEDICAL WILLIAMSDOB: [facility] [id number] [place], [place] Number: Repository [address]Hgo: 330 [id number] [phone] (HP) Date:8395-44-59MH [address] [place] [address]XT: 11/20/2018 Secondary NOT GIVENUNK [place] Insurance:SELF PAY [facility] Number: Effective Repository Date:2018-11-20 11/18/2018 WILVER Olivo Primary VENESSA Red [id number] Insurance:MEDICAL WILLIAMSDOB: [facility] [id number] Number: Repository [address]Bxa: 330 [id number] [phone] (HP) Date:3330-36-74RZ [address] [address]SQ: 11/18/2018 Secondary NOT GIVENUNK [place] Insurance:SELF PAY [facility] Number: Effective Repository Date:2018-11-08 11/04/2018 WILVER Olivo Primary VENESSA Red [id number] Insurance:MEDICAL WILLIAMSDOB: [facility] [id number] [place], [place] Number: Repository [address]Ptr: 330 [id number] [phone] (HP) Date:3338-17-74RS [address] [address]KL: 11/04/2018 Secondary NOT GIVENUNK [place] Insurance:SELF PAY [facility] Number: Effective Repository Date:2018-11-04 10/16/2018 WILVER Olivo Primary VENESSA Red [id number] Insurance:MEDICAL WILLIAMSDOB: [facility] 8916-69-75ZRANew [place] Number: Repository [address]Yig: 330 [id number] [phone] (HP) Date:5153-89-76OF [address] [address]JG: 10/16/2018 Secondary NOT GIVENUNK [place] Insurance:SELF PAY [facility] Number: Effective Repository Date:2018-10-16 09/16/2018 WILVER Olivo Primary VENESSA Red [id number] Insurance:MEDICAL WILLIAMSDOB: [facility] [id number] [place] Number: Repository [address]Rqz: 330 [id number] [phone] (HP) Date:3697-59-23JD [address] [place] [address]IF: 09/16/2018 Secondary NOT GIVENUNK [place] Insurance:SELF PAY [facility] Number: Effective Repository Date:2018-09-16 08/12/2018 WILVER Olivo Primary VENESSA Red [id number] Insurance:MEDICAL WILLIAMSDOB: [facility] 6910-61-53HKVNew [place], [place] Number: Repository [address]Knp: 330 [id number] [phone] (HP) Date:2229-56-39UP [address] [place] [address]WY: 08/12/2018 Secondary NOT GIVENUNK [place] Insurance:SELF PAY [facility] Number: Effective Repository Date:2018-08-12 08/12/2018 WILVER Olivo Primary VENESSA Red [id number] Insurance:MEDICAL WILLIAMSDOB: [facility] 4022-82-26EKRNew [place], [place] Number: Repository [address]Bho: 330 [id number] [phone] (HP) Date:5059-69-82QR [address] [address]CB: 08/12/2018 Secondary NOT GIVENUNK [place] Insurance:SELF PAY [facility] Number: Effective Repository Date:2018-08-12 07/30/2018 WILVER Olivo Primary VENESSA Red [id number] Insurance:MEDICAL WILLIAMSDOB: [facility] [id number] [place], [place] Number: Repository [address]Jmv: 330 [id number] [phone] (HP) Date:1449-33-33KR [address] [place] [address]PL: 07/30/2018 Secondary NOT GIVENUNK [place] Insurance:SELF PAY [facility] Number: Effective Repository Date:2018-07-30 02/14/2018 WILVER Olivo Primary VENESSA [id number] Insurance:MEDICAL WILLIAMSDOB: [facility] 1053-25-07LFYNew [place], [place] Number: Repository [address]Nmw: 330 [id number] [phone] (HP) Date:3770-94-34OZ [address] [address]JT: 02/14/2018 Secondary NOT GIVENUNK [place] Insurance:SELF PAY [facility] Number: Effective Repository Date:2017-10-06 02/13/2018 WILVER Olivo Primary VENESSA [id number] Insurance:MEDICAL WILLIAMSDOB: [facility] [id number] [place], [place] Number: Repository [id number]: (077) [id number] [phone] (HP) Date:7901-88-64EN [address] [address]HT: 02/13/2018 Secondary NOT GIVENUNK [place] Insurance:SELF PAY [facility] Number: Effective Repository Date:2018-02-13 02/08/2018 WILVER Olivo Primary VENESSA [id number] Insurance:MEDICAL WILLIAMSDOB: [facility] 1583-20-80GYLNew [place], [place] Number: Repository [id number]: 330 [id number] [phone] (HP) Date:6789-75-75BF [address] [address]TT: 02/08/2018 Secondary NOT GIVENUNK [place] Insurance:SELF PAY [facility] Number: Effective Repository Date:2018-02-08
== END ==
PROVIDERS: Family Provider Internal Medicine; PCP Internal Medicine; Referring Provider Podiatrist; Visit Provider Podiatrist
DX: M10.9 Gout, unspecified (principal)
CPT/HCPCS: 36415; 84550

== ENCOUNTER → 2018-11-25 07:39 | Outpatient (CLI) | payer OTHER, SELFPAY ==
[2018-11-18 09:08] VITALS: BMI 29.1
--- NOTE | 2018-11-25 11:30 | PFTCOMP_ITS ---
COMPLETE PULMONARY FUNCTION TEST INTERPRETATION Brief HPI: Patient is a 63 year old male, currently under the care of Dr. John, who presents to [facility] for complete pulmonary function tests secondary to diagnosis of COPD. Respiratory therapist reports good effort and reproducible results. Interpretation: Forced expiration spirometry shows a mild large airways obstructive ventilatory defect with an FEV1 of 106% predicted. There is no significant bronchodilator response by strict ATS criteria. Spirograms are of good quality and plateau slowly, indicating slowly emptying areas of the lungs. The respiratory flow volume loop shows decreased expiratory flow rates at high lung volumes consistent with small airways obstruction. Lung volumes by body plethysmography show an elevated total lung capacity at 8.79 L, 128% predicted. All other lung volumes are increased symmetrically. Diffusion capacity by carbon monoxide is elevated at 137% predicted. The airway resistance is normal. Compared to previous pulmonary function tests from 02/23/2015, there has been no significant change. Impression: Irreversible mild large airways obstructive ventilatory defect with no significant private branch exchange service advisor the last 4 years.
--- OUTSIDE RECORDS SUMMARY | 2019-01-27 15:13 | XMS RPT_ITS ---
:1955 Author Organization [place] Support Name Relationship Address Phone RAYSHAWN DELGADO Unavailable Unavailable + R Unavailable Unavailable Unavailable VENESSA SANTIAGO Unavailable [address] + [place] [address] RAYSHAWN DELGADO Unavailable Unavailable + R Unavailable Unavailable Unavailable VENESSA SANTIAGO Unavailable [address] + [place] [address] R Unavailable Unavailable Unavailable VENESSA SANTIAGO Unavailable [address] + [place] [address] R Unavailable Unavailable Unavailable VENESSA SANTIAGO Unavailable [address] + [place] [address] R Unavailable Unavailable Unavailable VENESSA SANTIAGO Unavailable [address] + [place] [address] R Unavailable Unavailable Unavailable VENESSA SANTIAGO Unavailable [address] + [place] [address] R Unavailable Unavailable Unavailable VENESSA SANTIAGO Unavailable [address] + [place] [address] R Unavailable Unavailable Unavailable VENESSA SANTIAGO Unavailable [address] + [place] [address] R Unavailable Unavailable Unavailable VENESSA SANTIAGO Unavailable [address] + [place] [address] R Unavailable Unavailable Unavailable VENESSA SANTIAGO Unavailable [address] + [place] [address] R Unavailable Unavailable Unavailable VENESSA SANTIAGO Unavailable [address] + [place] [address] R Unavailable Unavailable Unavailable VENESSA SANTIAGO Unavailable [address] + [place] [address] Care Team Providers Name Role Phone Roberto [...] Unknown M10.9 - Gout, Dasha Koenig Active [facility] unspecified / Community M10.9(ICD-10) Hospital Repository 11/18/2018 Unknown M79.671 - Pain in Oleghe, Active [place] right foot / [facility] M79.671(ICD-10) Hospital Repository 11/18/2018 Unknown M79.672 - Pain in Oleghe, Active [facility] left foot / [facility] M79.672(ICD-10) Hospital Repository 11/18/2018 Unknown J44.9 - Chronic O[place], Active [facility] obstructive [facility] pulmonary disease, Hospital unspecified / Repository J44.9(ICD-10) 11/18/2018 Unknown J45.909 - Oleghe, Active [place] Unspecified asthma, [facility] uncomplicated / Hospital J45.909(ICD-10) Repository 09/16/2018 Unknown 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Oleghe, Active [place] bowel syndrome with [facility] diarrhea / Hospital K58.0(ICD-10) Repository 08/12/2018 Unknown E03.9 - Oleghe, Active [place] Hypothyroidism, [facility] unspecified / Hospital E03.9(ICD-10) Repository 07/30/2018 Unknown Z00.00 - Encounter Oleghe, Active [place] for general adult [facility] without abnormal Repository findings / Z00.00(ICD-10) 02/13/2018 Unknown R89.9 - Unspecified Oleghe, Active [place] abnormal finding in [facility] specimens from Hospital other organs, Repository systems and tissues / R89.9(ICD-10) PROCEDURES PROCEDURES No Procedure Records FoundRESULTS RESULTS PULMONARY FUNCTION Observed: 11/26/2018 Status: F Source: [place] REPORT COMP 5:57 AM [facility] REPOSITORY [facility] Pulmonary Services/Neurology [address] [id number] MR#: [id number] Acct: [id number] Name: WILVER SANTIAGO Rep #: [id number] : 1955 63 From: Pascual Roche MD Referring Dr: Bean John MD Status: REG CLI Ordering Dr: Date: Location: [facility] Sex: M C COMPLETE PULMONARY FUNCTION TEST INTERPRETATION Brief HPI: Patient is a 63 year old male, currently under the care of Dr. 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 11/26/18 0557 <Electronically signed by Pascual Roche MD> Date Pascual Roche MD CC: Pascual Roche MD; Bean John MD Date Dictated: 11/25/18 1128 Date Transcribed: 11/25/181127 Day Trader: MANOJ Signed URIC ACID Collected: 11/20/2018 Status: F Source: [place] 2:12 PM [facility] REPOSITORY TYPE CODE TESTS RESULT OUT OF RANGE REFERENCE UNITS LAB L501.1400 3.5-7.2 mg/dL High URIC 7.6 Result Comment: The drugs N-Acetylcysteine and Metamizole may falsely depress this assay. Performed By: #### L501.1400 #### [facility] [address] [place], [address] INTERNAL MEDICINE Observed: 11/19/2018 Status: F Source: [place] OFFICE VISIT 10:01 AM [facility] REPOSITORY [facility] [address] [place] [address] [place] [address] OFFICE VISIT Date of Service: 11/18/18 MR#: [id number] Acct: [id number] Name: WIVLER SANTIAGO Rep #: [id number] : 1955 Provider: Bean John MD Age/Sex: 63/M Location: [facility] Status: Signed Intake Vital Signs11/18/18 Height [...] pain. He has been seen by 2 quality assurance monitor chassis without significant help per patient. He will [...] acute distress Orientation: alert, awake, oriented x3 [facility] Head: normal to inspection, normocephalic, atraumatic Resp [...] current management. This note was generated with [employer] software. It may contain incorrect words, spelling, [...] BIOPSY (CHOOSE Observed: 11/04/2018 Status: F Source: [facility]) 12:40 PM [facility] REPOSITORY Patient: WILVER SANTIAGO : 1955 (62/M) Acct Num: [id number] Phys: George Mejia Unit Num: [id number] Loc: LABSPEC Specimen: [id number] Received: 11/05/18 - 0264 Spec Type: COLON BX TISSUES 1 TISSUES: [...] one cassette. / SJ:cornelio 11/06/18 TC:5 CPT: 84891 x2 HEADER OPERATION: Colonoscopy with biopsy PRE-OP [...] on file> Performed By: #### PCOLBX #### [facility] [address] [place] [address]. [place], [place], [id number] CRP Collected: 10/16/2018 Status: F Source: [place] 4:11 PM [facility] REPOSITORY TYPE CODE TESTS RESULT OUT OF RANGE REFERENCE UNITS LAB L501.6710 0.0-3.0 mg/L Normal < 2.90 C-REACTIVE PROT Result Comment: C-Reactive Protein (CRP) provides useful information for the diagnosis, therapy and monitoring of inflammatory processes and associated diseases. For the evaluation of Relative Risk for Cardiovascular Disease, a High Sensitivity CRP (HSCRP) should be ordered. Performed By: #### L501.6710 #### [facility] [place], [place], [id number] CELIAC DISEASE Collected: 10/16/2018 Status: F Source: [facility] 4:11 PM [facility] REPOSITORY TYPE CODE TESTS RESULT OUT OF RANGE REFERENCE UNITS LAB L3200.1400 61-437 mg/dL Normal IMMUNO A 149 Result Comment: Performed at: [address] [id number] Gas Singer: George Becker PhD, Phone: [phone] LAB M1766.7936 0-3 U/mL Normal tTG IGA <2 Result Comment: Negative 0 - 3 Weak Positive 4 - 10 Positive >10 Tissue Transglutaminase (tTG) has been identified as the endomysial antigen. Studies have demonstr- ated that endomysial IgA antibodies have over 99% specificity for gluten sensitive enteropathy. LAB L3573.0522 Negative Normal ENDOMYSIAL IGA Negative Performed By: #### L3410.2400 #### [facility] (refer to report for specific site) refer to report for address and phone number INTERNAL MEDICINE Observed: 09/19/2018 Status: F Source: [place] OFFICE VISIT 2:25 PM [facility] [address] [place] [address] [place] [address] OFFICE VISIT Date of Service: 09/16/18 MR#: [id number] Acct: [id number] Name: PAMELAWILVER E Rep #: [id number] : 1955 Provider: Bean John MD Age/Sex: 62/M Location: [facility] Status: Signed Intake Vital Signs09/16/18 Height 5 [...] DAILY #90 tab 09/16/18 [Rx Confirmed 09/16/18] [facility] Medical History Hypothyroidism (Chronic) Asthma (Chronic) COPD [...] F Source: [place] OFFICE VISIT 12:12 PM [facility] [place] [address] OFFICE VISIT Date of Service: 08/12/18 MR#: [id number] Acct: [id number] Name: WILVER SANTIAGO Rep #: [id number] : 1955 Provider: Bean John MD Age/Sex: 62/M Location: [facility] Status: Signed Intake Vital Signs08/12/18 Height 5 [...] current medication. This note was generated with [employer] software. It may contain incorrect words, spelling, [...] Status: F Source: [place] ([facility]) 9:20 AM [facility] REPOSITORY TYPE CODE TESTS RESULT OUT OF RANGE REFERENCE UNITS LAB L501.9520 0.358-3.74 uIU/mL Normal TSH 2.56 Performed By: #### L501.9520, L506.0400 #### [facility] [address], [address] T4 FREE DIRECT Collected: 08/12/2018 Status: F Source: [place] 9:20 AM [facility] REPOSITORY TYPE CODE TESTS RESULT OUT OF RANGE REFERENCE UNITS LAB L506.0400 0.76-1.46 ng/dL Normal T4 FREE 0.80 DIRECT Performed By: #### L501.9520, L506.0400 #### [facility] [address] [place], [address] COMPREHENSIVE METABOLIC Collected: 07/30/2018 Status: F Source: [place] [facility] 7:15 AM [facility] REPOSITORY TYPE CODE TESTS RESULT OUT OF [...] Performed By: #### L500.4050, L500.4100, L501.9910 #### [facility] [address] [place], [place], [address] LIPID PROFILE Collected: 07/30/2018 Status: F Source: [place] 7:15 AM [facility] REPOSITORY TYPE CODE TESTS RESULT OUT OF [...] Performed By: #### L500.4050, L500.4100, L501.9910 #### [facility] [address] [place], [place], [address] PSA,TOTAL - ANNUAL Collected: 07/30/2018 Status: F Source: [place] SCREEN 7:15 AM [facility] REPOSITORY TYPE CODE TESTS RESULT OUT OF RANGE REFERENCE UNITS LAB L501.9910 0.00-4.00 ng/mL Normal PSA,TOT 1.48 SCREEN Result Comment: This test was performed using the TPSA assay method for the [employer] chemistry system. Values obtained with different assay methods cannot be used interchangably. When changing PSA assays in the course of monitoring a patient, additional sequential testing should be carried out to confirm baseline values. Performed By: #### L500.4050, L500.4100, L501.9910 #### [facility] [place], [address] INTERNAL MEDICINE Observed: 02/15/2018 Status: F Source: [place] OFFICE VISIT 4:58 PM [facility] REPOSITORY [facility] [address] [place] [address] OFFICE VISIT Date of Service: 02/08/18 MR#: [id number] Acct: [id number] Name: WILVER SANTIAGO Rep #: [id number] : 1955 Provider: Bean John MD Age/Sex: 62/M Location: [facility] Status: Draft Intake Vital Signs02/08/18 Height 5 [...] 6 months This note was generated with [employer] software. It may contain incorrect words, spelling, [...] 02/13/2018 Status: F Source: [place] 4:02 PM [facility] REPOSITORY TYPE CODE TESTS RESULT OUT OF [...] Lymph 2.37 Performed By: #### L100.0100 #### [facility] [address] [facility] [place], [address] ALLERGIES ALLERGIES DATE TYPE / CODE NAME / CODE REACTION SEVERITY SOURCE 01/06/2014 Drug ampicillin/F Hives Unknown [facility] Allergy/4160 [id number]([facility] [address](SNOMED NORM) Repository CT) ENCOUNTERS ENCOUNTERS ADMIT/DISCHARGE ACCOUNT ADMITTING ENCOUNTER LOCATION SOURCE NUMBER CLASS 11/25/2018 [id number] Ambulatory [address] ing:PSN Repository 11/20/2018 [id number] Ambulatory [address] ing:MTLAB Repository 11/18/2018/ [id number] Ambulatory BMSBuilding:B [facility] [facility] 9 0 [place].[facility] Repository 11/04/2018 [id number] Ambulatory [address] ing:LABSPEC Repository 10/16/2018 [id number] Ambulatory [place] [facility] ing:MTLAB Repository 09/16/2018/ [id number] Ambulatory BMSBuilding:B [place] 8 1 [place].[facility] Repository 08/12/2018 [id number] Ambulatory [place] 1 [facility] ing:MTLAB Repository 08/12/2018/ [id number] Ambulatory BMSBuilding:B [place] 8 9 [place].[facility] Repository 07/30/2018 [id number] Ambulatory [facility] [facility] ing:MTLAB Repository 02/14/2018 [id number] Ambulatory BMSBuilding:B [place] 2 [place].[facility] Repository 02/13/2018 [id number] Ambulatory [place] 1 [facility] ing:MTLAB Repository 02/08/2018/ [id number] Ambulatory BMSBuilding:B [place] 8 8 [place].[facility] Repository PAYERS PAYERS ENCOUNTER GUARANTOR PAYER SUBSCRIBER SOURCE 11/25/2018 WILVER Olivo Primary VENESSA [place] [id number] Insurance:MEDICAL WILLIAMSDOB: [facility] [place] Number: Repository [address]: 330 [id number] [phone] (HP) Date:4086-06-45[address] [address]WJ: 11/25/2018 Secondary NOT GIVENUNK [place] Insurance:SELF PAY [facility] Number: Effective Repository Date:2018-11-18 11/20/2018 WILVER Olivo Primary VENESSA [place] [id number] Insurance:MEDICAL WILLIAMSDOB: [facility] 6330[place]51-43[place] Number: Repository [address]Yzi: 330 [id number] [phone] (HP) Date:7486-60-17VA [address] [place] [address]LU: 11/20/2018 Secondary NOT GIVENUNK [place] Insurance:SELF PAY [facility] Number: Effective Repository Date:2018-11-20 11/18/2018 WILVER Olivo Primary VENESSA [place] [id number] Insurance:MEDICAL WILLIAMSDOB: [facility] 6866-15-31[place]UG[place] Number: Repository [address]Wsi: 330 [id number] [phone] (HP) Date:1499-49-65IA [address] [address]HB: 11/18/2018 Secondary NOT GIVENUNK [facility] Insurance:SELF PAY [facility] Number: Effective Repository Date:2018-11-08 11/04/2018 WILVER Olivo Primary VENESSA [place] [id number] Insurance:MEDICAL WILLIAMSDOB: [facility] 6228-90-87TQIG[place] Number: Repository [address]Hmf: 330 [id number] [phone] (HP) Date:1562-87-51GQ [address] [address]WR: 11/04/2018 Secondary NOT GIVENUNK [place] Insurance:SELF PAY [facility] Number: Effective Repository Date:2018-11-04 10/16/2018 WILVER Olivo Primary VENESSA [place] [id number] Insurance:MEDICAL WILLIAMSDOB: [facility] 5687-57-26[place]QKG[place] Number: Repository [address]Gbk: 330 [id number] [phone] (HP) Date:7720-38-92OM [address] [address]ID: 10/16/2018 Secondary NOT GIVENUNK [place] Insurance:SELF PAY [facility] Number: Effective Repository Date:2018-10-16 09/16/2018 WILVER Olivo Primary VENESSA [place] [id number] Insurance:MEDICAL WILLIAMSDOB: [facility] 8076-32-46FOUGarden [place] Number: Repository [address]Ybd: 330 [id number] [phone] (HP) Date:7746-45-94YL [address] [place] [address]ST: 09/16/2018 Secondary NOT GIVENUNK [place] Insurance:SELF PAY [facility] Number: Effective Repository Date:2018-09-16 08/12/2018 WILVER Olivo Primary VENESSA Red [id number] Insurance:MEDICAL WILLIAMSDOB: [facility] 5608-87-15DGSG[place] Number: Repository [address]Crn: 330 [id number] [phone] (HP) Date:7723-60-43OG [address] [place] [address]BT: 08/12/2018 Secondary NOT GIVENUNK [place] Insurance:SELF PAY [facility] Number: Effective Repository Date:2018-08-12 08/12/2018 WILVER Olivo Primary VENESSA [place] [id number] Insurance:MEDICAL WILLIAMSDOB: [facility] 5704-17-51EQLG[place], [place] Number: Repository [address]Yie: 330 [id number] [phone] (HP) Date:9950-73-93FF [address] [address]FG: 08/12/2018 Secondary NOT GIVENUNK [place] Insurance:SELF PAY [facility] Number: Effective Repository Date:2018-08-12 07/30/2018 WILVER Olivo Primary VENESSA [address] [id number] Insurance:MEDICAL WILLIAMSDOB: [facility] 1992-63-84HQPGarden [place], [place] Number: Repository [address]Uce: 330 [id number] [phone] (HP) Date:0329-53-74XU [address] [place] [address]OG: 07/30/2018 Secondary NOT GIVENUNK [place] Insurance:SELF PAY [facility] Number: Effective Repository Date:2018-07-30 02/14/2018 WILVER Olivo Primary VENESSA [id number] Insurance:MEDICAL WILLIAMSDOB: [facility] 8765-66-08YHMGarden [place], [place] Number: Repository [id number]: 330 [id number] [phone] (HP) Date:2407-26-15SQ [address] [address]UG: 02/14/2018 Secondary NOT GIVENUNK [place] Insurance:SELF PAY [facility] Number: Effective Repository Date:2017-10-06 02/13/2018 WILVER Olivo Primary VENESSA [id number] Insurance:MEDICAL WILLIAMSDOB: [facility] 6436-75-70HTNGarden [place] Number: Repository [address]Eps: (298) [id number] [phone] (HP) Date:1094-96-28VR [address] [address]WY: 02/13/2018 Secondary NOT GIVENUNK [place] Insurance:SELF PAY [facility] Number: Effective Repository Date:2018-02-13 02/08/2018 WILVER Olivo Primary VENESSA [id number] Insurance:MEDICAL WILLIAMSDOB: [facility] 3082-23-03OHKG[place] Number: Repository [id number]: 330 [id number] [phone] (HP) Date:9044-13-98IS [address] [address]DX: 02/08/2018 Secondary NOT GIVENUNK [place] Insurance:SELF PAY [facility] Number: Effective Repository Date:2018-02-08
== END ==
PROVIDERS: Family Provider Internal Medicine; PCP Internal Medicine; Referring Provider Internal Medicine; Visit Provider Internal Medicine
DX: J44.9 Chronic obstructive pulmonary disease, unspecified (principal)
CPT/HCPCS: 94060; 94726; 94729

== ENCOUNTER → 2019-11-26 07:03 | Outpatient (CLI) | payer OTHER, MEDICAID, SELFPAY ==
[2019-11-21 11:16] VITALS: BMI 29.1
[2019-11-26 10:01] LABS: Absolute Lymphocyte Count 3.06 X10^3/uL (0.83-4.51); Absolute Neutrophil Count 3.4 X10^3/uL (2.0-7.7); Basophil# 0.07 X10^3/uL; Basophil% 0.9 % (0-1); Eosinophil# 0.12 X10^3/uL; Eosinophils% 1.6 % (0-5); Hematocrit 48.9 % (40-54); Lymphocyte # 3.06 X10^3/ul (4.0); Lymphocyte % 40.3 % (19-41); Mean Corp Hgb Conc 32.7 g/dL (32-36); Mean Corpuscular Hgb 30.9 pg (27.0-32.0); Mean Corpuscular Volume 94.6 fL (80-94); Mean Platelet Vol. 9.4 fl (6.2-12.0); Monocyte# 0.88 X10^3/uL; Monocyte% 11.6 % (0-10); NRBC Flagged by Analyzer 0 % (0-5); Neutrophil # 3.41 X10^3/uL (2.7-7.7); Neutrophil % 44.8 % (47-70); Platelet Count 265 K/mm3 (150-450); RBC Distribution Width CV 12.9 % (11.6-14.6); RBC Distribution Width SD 44.5 fl (35.1-43.9); Red Blood Count 5.17 M/mm3 (4.6-6.2); White Blood Count 7.6 K/mm3 (4.4-11.0)
[2019-11-26 10:48] LABS: ALB/GLOB Ratio 1.1 RATIO (0.9-2.4); AST(SGOT) 19 U/L (15-37); Alanine Aminotransfer ALT/SGPT 32 U/L (16-61); Albumin, Serum 3.7 g/dL (3.2-5.0); Alkaline Phosphatase 58 U/L (45-117); Anion Gap 4 (5-15); BUN 20 mg/dL (7-18); BUN/Creat Ratio 18.2 RATIO (10-20); Calcium,Total 9.2 mg/dL (8.5-10.1); Chloride 107 mmol/L (98-107); Cholesterol 214 mg/dL (200); EST Glomerular Filtration Rate 72 mL/min (>60); Est Glom Filt Rate - Afr Amer 87 mL/min (>60); Globulin 3.5 g/dL (2.2-4.2); Glucose 76 mg/dL (74-106); High Density Lipoprotein 116 mg/dL; PSA,Total - Annual Screen 1.26 ng/mL (0.00-4.00); Potassium 3.9 mmol/L (3.5-5.1); Protein, Total 7.2 g/dL (6.4-8.2); Sodium Level 141 mmol/L (136-145); Thyroid Stim Hormone (TSH) 3.04 uIU/mL (0.358-3.74); Triglycerides 67 mg/dL; Very Low Density Lipoprotein 13 mg/dL (5-40)
== END ==
PROVIDERS: PCP Internal Medicine; Referring Provider Internal Medicine; Visit Provider Internal Medicine
DX: Z00.00 Encounter for general adult medical examination without abnormal findings (principal); E03.9 Hypothyroidism, unspecified; J42 Unspecified chronic bronchitis
CPT/HCPCS: 36415; 80053; 80061; 84153; 84443; 85025; G0103

== ENCOUNTER → 2020-02-23 12:23 | Outpatient (CLI) | payer OTHER, SELFPAY ==
[2020-02-23 07:43] VITALS: BMI 29.2
[2020-02-23 12:58] LABS: Absolute Lymphocyte Count 1.61 X10^3/uL (0.83-4.51); Absolute Neutrophil Count 4.4 X10^3/uL (2.0-7.7); Basophil# 0.09 X10^3/uL; Basophil% 1.3 % (0-1); Eosinophil# 0.28 X10^3/uL; Hematocrit 45.6 % (40-54); Hemoglobin 15.1 g/dL (13.0-16.5); Lymphocyte # 1.61 X10^3/ul (4.0); Lymphocyte % 22.7 % (19-41); Mean Corp Hgb Conc 33.1 g/dL (32-36); Mean Corpuscular Volume 93.6 fL (80-94); Mean Platelet Vol. 8.9 fl (6.2-12.0); Monocyte# 0.65 X10^3/uL; Monocyte% 9.2 % (0-10); NRBC Flagged by Analyzer 0 % (0-5); Neutrophil # 4.43 X10^3/uL (2.7-7.7); Neutrophil % 62.5 % (47-70); Platelet Count 209 K/mm3 (150-450); RBC Distribution Width CV 13.1 % (11.6-14.6); RBC Distribution Width SD 44.7 fl (35.1-43.9); Red Blood Count 4.87 M/mm3 (4.6-6.2); White Blood Count 7.1 K/mm3 (4.4-11.0)
[2020-02-25 20:06] LABS: Alternaria alternata <0.10 kU/L (Class 0); Bermuda Grass <0.10 kU/L (Class 0); Bluegrass, Kentucky <0.10 kU/L (Class 0); Cat Hair/Dander, Standard <0.10 kU/L (Class 0); D farinae Mite <0.10 kU/L (Class 0); D pteronyssinus <0.10 kU/L (Class 0); Dog Epithelia <0.10 kU/L (Class 0); Elm, American White <0.10 kU/L (Class 0); Oak, White <0.10 kU/L (Class 0); Plantain, English <0.10 kU/L (Class 0); Ragweed, Short/Common <0.10 kU/L (Class 0)
[2020-02-25 21:34] LABS: Mouse Urine <0.10 kU/L (Class 0)
[2020-02-26 20:07] LABS: Aspirgillus flavus Negative (Neg:<1:1); Aspirgillus fumigatus Negative (Neg:<1:1); Aspirgillus niger Negative (Neg:<1:1)
[2020-02-27 05:18] LABS: Immunoglobulin E 9 IU/mL (6-495)
== END ==
PROVIDERS: PCP Internal Medicine; Referring Provider Nurse Practitioner Acute Care; Visit Provider Nurse Practitioner Acute Care
DX: J45.909 Unspecified asthma, uncomplicated (principal)
CPT/HCPCS: 36415; 82785; 85025; 86003; 86606

== ENCOUNTER → 2020-03-24 11:04 | Outpatient (CLI) | payer OTHER, SELFPAY ==
[2020-03-24 10:13] VITALS: BMI 29.2
--- NOTE | 2020-03-24 11:09 | RAD_ITS ---
STUDY: X-RAY - LEFT FOOT CLINICAL: Male, 64 years old. Left foot pain for several weeks, no injury TECHNIQUE: 3 view(s) of the foot. COMPARISON: None. FINDINGS: Normal talus and tarsal bones. Achilles tendon spur. Normal visualized subtalar, talonavicular, calcaneocuboid, tarsal and tarsometatarsal articulations. Normal metatarsi. Degenerative arthrosis of the first MTP joint with subtle erosive changes along the medial aspect of the first metatarsal head and extra articular calcifications noted. Findings suggest either a synovitis or osteomyelitis. There is soft tissue swelling but there is no subcutaneous emphysema. Normal tibial and fibular sesamoid bones. Normal interphalangeal joint of the great toe. Normal phalanges of the great toe. Normal second through fifth metatarsophalangeal joints. Normal interphalangeal joints and phalanges of the lesser toes. The soft tissue structures are unremarkable. RAD/Foot min 3 Views IMPRESSION: First MTP joint arthrosis with subtle erosive changes along the medial aspect of the first metatarsal head, soft tissue swelling, and extra-articular calcifications. Findings suggest synovitis or osteomyelitis. No subcutaneous emphysema noted. Achilles tendon spur Electronically Signed: Jaime Heard MD at 11:27 EDT , Service support ,
[2020-03-24 15:24] LABS: Absolute Lymphocyte Count 1.92 X10^3/uL (0.83-4.51); Absolute Neutrophil Count 6.1 X10^3/uL (2.0-7.7); Basophil# 0.11 X10^3/uL; Basophil% 1.2 % (0-1); Eosinophils% 4.3 % (0-5); Hematocrit 48.9 % (40-54); Hemoglobin 15.7 g/dL (13.0-16.5); Lymphocyte # 1.92 X10^3/ul (4.0); Lymphocyte % 20.4 % (19-41); Mean Corp Hgb Conc 32.1 g/dL (32-36); Mean Corpuscular Hgb 30.7 pg (27.0-32.0); Mean Corpuscular Volume 95.5 fL (80-94); Mean Platelet Vol. 9.5 fl (6.2-12.0); Monocyte# 0.87 X10^3/uL; Monocyte% 9.3 % (0-10); NRBC Flagged by Analyzer 0 % (0-5); Neutrophil # 6.06 X10^3/uL (2.7-7.7); Neutrophil % 64.4 % (47-70); Platelet Count 297 K/mm3 (150-450); RBC Distribution Width CV 12.5 % (11.6-14.6); RBC Distribution Width SD 44.2 fl (35.1-43.9); Red Blood Count 5.12 M/mm3 (4.6-6.2); White Blood Count 9.4 K/mm3 (4.4-11.0)
[2020-03-24 15:25] LABS: AST(SGOT) 24 U/L (15-37); Alanine Aminotransfer ALT/SGPT 34 U/L (16-61); Albumin, Serum 3.7 g/dL (3.2-5.0); Alkaline Phosphatase 73 U/L (45-117); Anion Gap 5 (5-15); BUN 18 mg/dL (7-18); BUN/Creat Ratio 15.1 RATIO (10-20); Calcium,Total 9.2 mg/dL (8.5-10.1); Chloride 106 mmol/L (98-107); Creatinine, Serum 1.19 mg/dL (0.70-1.30); EST Glomerular Filtration Rate 66 mL/min (>60); Est Glom Filt Rate - Afr Amer 79 mL/min (>60); Globulin 3.7 g/dL (2.2-4.2); Glucose 84 mg/dL (74-106); Protein, Total 7.4 g/dL (6.4-8.2); Sodium Level 140 mmol/L (136-145); Uric Acid 5.9 mg/dL (3.5-7.2)
== END ==
PROVIDERS: PCP Internal Medicine; Referring Provider Nurse Practitioner Family; Visit Provider Nurse Practitioner Family
DX: M79.672 Pain in left foot (principal); M10.9 Gout, unspecified
CPT/HCPCS: 73630; 80053; 84550; 85025

== ENCOUNTER → 2020-03-26 06:51 | Outpatient (CLI) | payer OTHER, SELFPAY ==
[2020-03-24 10:13] VITALS: BMI 29.2
--- NOTE | 2020-03-26 06:52 | MRI_ITS ---
STUDY: MRI LEFT FOREFOOT WITH AND WITHOUT CONTRAST REASON FOR EXAM: Swelling over first metatarsophalangeal joint, no specific injury. TECHNIQUE: Standardized fat and water weighted pulse sequences were obtained in all 3 orthogonal planes, post contrast administration. IV 20 milliliters Dotarem was administered for the contrast portion of the examination. COMPARISON: Radiographs 03/24/2020. FINDINGS: There is an osseous erosion of the medial aspect of the first metatarsal head (T1 series 6 images 16, 17) with bone edema of the medial metatarsal head extending into the proximal diaphysis (inversion recovery sagittal images 21-24). There is contrast enhancement of the bone edema (postcontrast T1 sagittal images 21-24). There is an adjacent soft tissue lesion (T2 series 7 images 15-8) measuring approximately 2 cm in length with faint calcification on the radiographs suggestive of tophus. There is a small effusion of the tibiotalar joint with mild synovitis (inversion recovery sagittal images 20-24). There is sclerosis and mild cystic change of the fibular sesamoid (T1 sagittal image 21) and to a interval lesser extent the tibial sesamoid (T1 sagittal image 25), suggestive of sesamoiditis. Normal interphalangeal joint of the hallux. Normal proximal and distal phalanges of the great toe. Normal medial and lateral heads of the flexor hallucis brevis tendons. There is mild flexor tenosynovitis of the first digit at the level of the distal metatarsal diaphysis with mild contrast enhancement (postcontrast T1 series 11 images 8-11). Normal second through fifth metatarsophalangeal (MTP) joints. Normal interphalangeal joints of the second through fifth toes. Normal proximal, middle and distal phalanges of the second through fifth toes. Normal flexor and extensor tendons of the second through fifth toes. Normal first through fourth intermetatarsal spaces. There is no metatarsal stress fracture. Normal intrinsic muscles of the forefoot. There is edema in the subcutis adipose space, especially at the medial aspect of the first metatarsophalangeal joint with contrast enhancement at the medial aspect of the first metacarpophalangeal joint (postcontrast T1 sagittal images 26-28). There is mild adventitial bursitis at the plantar aspect of the first metatarsophalangeal joint (T2 series 7 images 17, 18). There is a pressure lesion at the plantar aspect of the fifth metatarsophalangeal joint (T1 axial series 6 images 9-12). There is no demonstrated soft tissue abscess. 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 Small effusion with synovitis of the first metatarsophalangeal joint. Mild flexor hallucis longus tenosynovitis. Sesamoiditis. Mild adventitial bursitis at the plantar aspect of the first metatarsophalangeal joint and pressure lesion at the plantar aspect of the fifth metatarsophalangeal joint. Electronically Signed: Julio Mccormick MD at 9:06 EDT Tel , Service support ,
== END ==
PROVIDERS: PCP Internal Medicine; Referring Provider Nurse Practitioner Family; Visit Provider Nurse Practitioner Family
DX: M86.9 Osteomyelitis, unspecified (principal); R93.89 Abnormal findings on diagnostic imaging of other specified body structures; M79.672 Pain in left foot
CPT/HCPCS: 73720; A9575

== ENCOUNTER → 2020-04-16 11:25 | Outpatient (CLI) | payer OTHER, SELFPAY ==
[2020-04-16 08:50] VITALS: BMI 30.4
--- NOTE | 2020-04-16 10:05 | RAD_ITS ---
STUDY: X-RAY CHEST REASON FOR EXAM: Male, 64 years old. Short of breath, on gong for awhile TECHNIQUE: PA and lateral views of the chest. COMPARISON: Comparison is made with prior chest radiograph dated January 12, 2015. FINDINGS: Hyperinflation. The lungs are clear. There is no demonstrated pleural abnormality. Normal size heart. Normal mediastinum and cecil. Normal visualized pulmonary arteries. There is atherosclerotic calcification of the aortic arch with tortuosity. There are diffuse degenerative changes of the visualized thoracic spine. Normal visualized ribs, clavicles, and shoulders. There is no demonstrated abnormality of the visualized soft tissue structures of the upper abdomen. RAD/Chest PA and Lateral IMPRESSION: Hyperinflation. The lungs are clear. Electronically Signed: Erasto Grier, at 15:39 EDT , Service support ,
--- NOTE | 2020-04-16 13:47 | PFTCOMP ---
COMPLETE PULMONARY FUNCTION TEST INTERPRETATION Brief HPI: Patient is a 64 year old male, currently under the care of Khushbu Kumar, who presents to [facility] for complete pulmonary function tests secondary to diagnosis of asthma. Respiratory therapist reports good effort and reproducible results. Patient did use his Breo on the day of testing as this was scheduled emergently. Interpretation: Forced expiration spirometry shows no large airways obstructive ventilatory defect with an FEV1 of 99% predicted. There is no significant bronchodilator response by strict ATS criteria. Spirograms are of good quality and plateau slowly, indicating slowly emptying areas of the lungs. The respiratory flow volume loop shows decreased expiratory flow rates at high lung volumes consistent with small airways obstruction. Lung volumes by body plethysmography show an elevated total lung capacity at 8.63 L, 126% predicted. All other lung volumes are increased symmetrically. Diffusion capacity by carbon monoxide is normal at 116% predicted. The airway resistance is normal. Compared to previous pulmonary function tests from 11/25/2018, there is been a significant reduction in FVC and DLCO by 13% and 14% respectively. Impression: These pulmonary function tests are grossly within normal limits, but do show some decline compared to previous.
== END ==
PROVIDERS: PCP Internal Medicine; Referring Provider Nurse Practitioner Acute Care; Visit Provider Nurse Practitioner Acute Care
DX: J45.909 Unspecified asthma, uncomplicated (principal)
CPT/HCPCS: 71046; 94060; 94726; 94729; G2023

== ENCOUNTER → 2020-11-29 08:27 | Outpatient (CLI) | payer OTHER, SELFPAY ==
[2020-10-25 09:54] VITALS: BMI 30.5
[2020-11-29 12:42] LABS: Absolute Lymphocyte Count 1.57 X10^3/uL (0.83-4.51); Absolute Neutrophil Count 3.8 X10^3/uL (2.0-7.7); Basophil# 0.08 X10^3/uL; Basophil% 1.3 % (0-1); Eosinophil# 0.24 X10^3/uL; Eosinophils% 3.8 % (0-5); Hematocrit 48.5 % (40-54); Hemoglobin 15.8 g/dL (13.0-16.5); Lymphocyte # 1.57 X10^3/ul (4.0); Mean Corp Hgb Conc 32.6 g/dL (32-36); Mean Corpuscular Volume 95.1 fL (80-94); Mean Platelet Vol. 9.6 fl (6.2-12.0); Monocyte# 0.62 X10^3/uL; Monocyte% 9.9 % (0-10); NRBC Flagged by Analyzer 0 % (0-5); Neutrophil # 3.75 X10^3/uL (2.7-7.7); Neutrophil % 59.7 % (47-70); Platelet Count 247 K/mm3 (150-450); RBC Distribution Width CV 13.2 % (11.6-14.6); RBC Distribution Width SD 46.5 fl (35.1-43.9); White Blood Count 6.3 K/mm3 (4.4-11.0)
[2020-11-29 13:26] LABS: AST(SGOT) 37 U/L (15-37); Alanine Aminotransfer ALT/SGPT 39 U/L (16-61); Albumin, Serum 3.9 g/dL (3.2-5.0); Alkaline Phosphatase 57 U/L (45-117); Anion Gap 8 (5-15); BUN 12 mg/dL (7-18); BUN/Creat Ratio 11.2 RATIO (10-20); Calcium,Total 9.1 mg/dL (8.5-10.1); Chloride 106 mmol/L (98-107); Cholesterol 246 mg/dL (200); Creatinine, Serum 1.07 mg/dL (0.70-1.30); EST Glomerular Filtration Rate 74 mL/min (>60); Est Glom Filt Rate - Afr Amer 90 mL/min (>60); Globulin 3.8 g/dL (2.2-4.2); Glucose 79 mg/dL (74-106); High Density Lipoprotein 124 mg/dL; PSA,Total - Annual Screen 2.66 ng/mL (0.00-4.00); Potassium 4.5 mmol/L (3.5-5.1); Protein, Total 7.7 g/dL (6.4-8.2); Sodium Level 140 mmol/L (136-145); Thyroid Stim Hormone (TSH) 1.46 uIU/mL (0.358-3.74); Triglycerides 42 mg/dL; Very Low Density Lipoprotein 8 mg/dL (5-40)
== END ==
PROVIDERS: PCP Internal Medicine; Referring Provider Internal Medicine; Visit Provider Internal Medicine
DX: Z00.00 Encounter for general adult medical examination without abnormal findings (principal); E03.9 Hypothyroidism, unspecified; J45.40 Moderate persistent asthma, uncomplicated
CPT/HCPCS: 36415; 80053; 80061; 84153; 84443; 85025; G0103

== ENCOUNTER 2021-01-18 15:17 | Outpatient (RCR) | payer OTHER, SELFPAY ==
[2020-10-25 09:54] VITALS: BMI 30.5
[2021-01-18] MEDS: COVID-19 VACC, MRNA(PFIZER)/PF 30 MCG/0.3 ML SYRINGE IM (08:40)
[2021-02-08] MEDS: COVID-19 VACC, MRNA(PFIZER)/PF 30 MCG/0.3 ML SYRINGE IM (08:34)
== END 2021-04-12 23:59 ==
LOC: IMMUN 15:17
PROVIDERS: PCP Internal Medicine; Referring Provider Family Medicine; Visit Provider Family Medicine
DX: Z23 Encounter for immunization (principal)
CPT/HCPCS: 0001A; 0002A; 91300

== ENCOUNTER → 2021-04-25 09:26 | Outpatient (CLI) | payer OTHER, SELFPAY ==
[2020-10-25 09:54] VITALS: BMI 30.5
[2021-03-25 07:27] VITALS: BMI 29.6
--- NOTE | 2021-04-25 14:59 | PFTCOMP ---
COMPLETE PULMONARY FUNCTION TEST INTERPRETATION Brief HPI: Patient is a 65 year old male, currently under the care of myself, who presents to [facility] for complete pulmonary function tests secondary to diagnosis of COPD. Respiratory therapist reports good effort and reproducible results. Interpretation: Forced expiration spirometry shows no large airways obstructive ventilatory defect with an FEV1 of 103% predicted. There is no significant bronchodilator response by strict ATS criteria. Spirograms are of good quality and plateau slowly, indicating slowly emptying areas of the lungs. The respiratory flow volume loop shows decreased expiratory flow rates at high lung volumes consistent with small airways obstruction. Lung volumes by body plethysmography show a slightly elevated total lung capacity at 7.73 L, 113% predicted. All other lung volumes are within normal limits. Diffusion capacity by carbon monoxide is normal at 122% predicted. The airway resistance is normal. Compared to previous pulmonary function tests from 04/16/2020, there is been improvement in air trapping with hyperinflation. Impression: Grossly normal pulmonary function test with some stigmata of small airways disease. There has been improvement compared to 2019.
== END ==
PROVIDERS: PCP Internal Medicine; Referring Provider Nurse Practitioner Acute Care; Visit Provider Nurse Practitioner Acute Care
DX: J44.9 Chronic obstructive pulmonary disease, unspecified (principal)
CPT/HCPCS: 94060; 94726; 94729

== ENCOUNTER → 2021-04-28 08:15 | Outpatient (CLI) | payer OTHER, SELFPAY ==
[2020-10-25 09:54] VITALS: BMI 30.5
[2021-03-25 07:27] VITALS: BMI 29.6
[2021-04-28 08:36] VITALS: PULSE 104; PULSE 107; PULSE 108; PULSE 74; PULSE 81; PULSE 87; PULSE 94; PULSE 97; O2SAT 95; O2SAT 96; O2SAT 97
--- NOTE | 2021-04-28 14:30 | PCM.PSN.6M ---
PSN 6 Minute Walk Test 6 Minute Walk Test 6 Minute Walk Test: 6 Minute Walk Test PSN:6-Minute Walk Test Start: 04/28/21 08:35 Freq: Status: Active Protocol: RESP.6MINW Document 04/28/21 08:36 [facility] (Rec: 04/28/21 08:38 [facility] [id number]) 6 Minute Walk Test Date Performed 04/28/21 Time Performed 08:15 Height 5 ft 11 in Weight: 97.522 kg Weight in Pounds 215.[address]: Roberto Assistive device used: None Pre-test Oxygen Delivery Method Room Air Pulse Ox (%) 96 Pulse Rate (60-100 beats/min) 74 Dyspnea Melo Scale (0-10) 0 Exertion Melo Scale (6-20) 6 1st minute Oxygen Delivery Method Room Air Pulse Ox (%) 97 Pulse Rate (60-100 beats/min) 87 2nd minute Oxygen Delivery Method Room Air Pulse Ox (%) 95 Pulse Rate (60-100 beats/min) 97 3rd minute Oxygen Delivery Method Room Air Pulse Ox (%) 95 Pulse Rate (60-100 beats/min) 107 H 4th minute Oxygen Delivery Method Room Air Pulse Ox (%) 96 Pulse Rate (60-100 beats/min) 94 5th minute Oxygen Delivery Method Room Air Pulse Ox (%) 97 Pulse Rate (60-100 beats/min) 108 H 6th minute Oxygen Delivery Method Room Air Pulse Ox (%) 96 Pulse Rate (60-100 beats/min) 104 H Dyspnea Melo Scale (0-10) 0.5 Exertion Melo Scale (6-20) 10 Post-test Oxygen Delivery Method Room Air Pulse Ox (%) 96 Pulse Rate (60-100 beats/min) 81 Full Laps Walked 24 Partial Lap, Number of Tiles Walked 0 Total Distance Walked (ft) 1416 Interpretation Interpretation: The patient was able to ambulate 1416 feet over the course of 6 minutes on room air with no assistive devices or breaks. The patient experienced no significant desaturation, but did have mild increase in heart rate to a peak of 108 bpm. These findings are consistent with a normal walking oximetry. Recommendations Recommendations: No supplemental oxygen is indicated at this time.
== END ==
PROVIDERS: PCP Internal Medicine; Referring Provider Nurse Practitioner Acute Care; Visit Provider Nurse Practitioner Acute Care
DX: J44.9 Chronic obstructive pulmonary disease, unspecified (principal)
CPT/HCPCS: 94618

== ENCOUNTER → 2021-05-16 14:49 | Outpatient (CLI) | payer OTHER, MEDICAID, SELFPAY ==
[2021-05-03 05:39] VITALS: BMI 30.4
--- NOTE | 2021-05-16 14:50 | CT_ITS ---
EXAM: CT CHEST WITHOUT INTRAVENOUS CONTRAST : 1955 CLINICAL INDICATION: Concern for bronchiectesis -- Please include HRCT images TECHNIQUE: Helically acquired images were obtained of the chest without intravenous contrast. This CT exam was performed using one or more of the following dose reduction techniques: automated exposure control, adjustment of the mA and/or kV according to patient size, and/or use of iterative reconstruction technique. This report was created using [employer] report generation technology. COMPARISON: None. FINDINGS: LUNGS AND PLEURAL SPACES: Unremarkable. No mass. No consolidation or edema. No pleural effusion or thickening. No pneumothorax. HEART: Unremarkable. Heart size is normal. No pericardial effusion. MEDIASTINUM: There is scattered mediastinal lymph nodes. Esophagus is unremarkable. No hiatal hernia. THYROID: Unremarkable. No thyroid lesions. BONES/JOINTS: Unremarkable. No suspicious lytic or blastic abnormality. VASCULATURE: Unremarkable. Thoracic aorta is non-dilated. CT/Chest without Contrast IMPRESSION: No acute findings in the chest. Individualized dose optimization techniques were used for this CT. at 1753 Reported and signed by: Omar Chahal MD Electronically Signed: Omar Chahal MD at 17:52 EDT Tel , Service support ,
== END ==
PROVIDERS: PCP Internal Medicine; Referring Provider Internal Medicine Critical Care Medicine; Visit Provider Internal Medicine Critical Care Medicine
DX: J45.40 Moderate persistent asthma, uncomplicated (principal)
CPT/HCPCS: 71250

== ENCOUNTER → 2021-05-30 08:29 | Outpatient (CLI) | payer OTHER, SELFPAY ==
[2021-05-30 08:15] VITALS: BMI 30.4
[2021-05-30 13:09] LABS: Anion Gap 9 (5-15); BUN 18 mg/dL (7-18); BUN/Creat Ratio 21.2 RATIO (10-20); Calcium,Total 9.2 mg/dL (8.5-10.1); Chloride 107 mmol/L (98-107); Creatinine, Serum 0.85 mg/dL (0.70-1.30); EST Glomerular Filtration Rate 97 mL/min (>60); Est Glom Filt Rate - Afr Amer 117 mL/min (>60); Glucose 86 mg/dL (74-106); Potassium 4.4 mmol/L (3.5-5.1); Sodium Level 138 mmol/L (136-145); Uric Acid 5.9 mg/dL (3.5-7.2)
== END ==
PROVIDERS: PCP Internal Medicine; Referring Provider Internal Medicine; Visit Provider Internal Medicine
DX: M10.9 Gout, unspecified (principal)
CPT/HCPCS: 36415; 80048; 84550

== ENCOUNTER → 2021-10-27 09:29 | Outpatient (CLI) | payer OTHER, SELFPAY ==
--- NOTE | 2021-10-27 09:31 | RAD_ITS ---
STUDY: X-RAY - UNILATERAL RIBS ( RIGHT ) WITH CHEST REASON FOR EXAM: Male, 65 years old. Right rib pain, fall TECHNIQUE - RIBS: 4 view(s) of the ribs. TECHNIQUE - CHEST: Single PA view of the chest. COMPARISON: Comparison is made with prior chest radiograph dated 04/16/2020. FINDINGS - RIBS: Normal visualized ribs without a demonstrated fracture. FINDINGS - CHEST: There is hyperinflation of the lungs consistent with chronic obstructive lung disease (COPD). There is no demonstrated pleural abnormality. Normal size heart. Normal mediastinum and cecil. Normal visualized pulmonary arteries. There is atherosclerotic tortuosity of the aortic arch and descending thoracic aorta. There are diffuse degenerative changes of the visualized thoracic spine. Normal visualized ribs, clavicles, and shoulders. There is no demonstrated abnormality of the visualized soft tissue structures of the upper abdomen. RAD/Ribs Uni Min 3V w/PA Chest IMPRESSION: RIBS: Normal x-ray examination of the ribs. CHEST: Hyperinflation. The lungs are clear. Electronically Signed: Erasto Grier MD at 13:56 EST , Service support ,
== END ==
PROVIDERS: PCP Internal Medicine; Referring Provider Physician Assistant; Visit Provider Physician Assistant
DX: R07.81 Pleurodynia (principal)
CPT/HCPCS: 71101

== ENCOUNTER 2021-12-07 15:44 | Outpatient (CLI) | payer OTHER, MEDICAID, SELFPAY ==
[2021-12-07 17:13] LABS: Absolute Lymphocyte Count 2.03 X10^3/uL (0.83-4.51); Basophil# 0.09 X10^3/uL; Basophil% 1.1 % (0-1); Eosinophil# 0.28 X10^3/uL; Eosinophils% 3.3 % (0-5); Hematocrit 47.3 % (40-54); Hemoglobin 15.6 g/dL (13.0-16.5); Lymphocyte # 2.03 X10^3/ul (0.83-4.51); Lymphocyte % 24.1 % (19-41); Mean Corpuscular Hgb 31.1 pg (27.0-32.0); Mean Corpuscular Volume 94.2 fL (80-94); Mean Platelet Vol. 9.6 fl (6.2-12.0); Monocyte# 1.01 X10^3/uL; NRBC Flagged by Analyzer 0 % (0-5); Neutrophil # 5.01 X10^3/uL (2.7-7.7); Neutrophil % 59.3 % (47-70); Platelet Count 245 K/mm3 (150-450); RBC Distribution Width CV 13.2 % (11.6-14.6); RBC Distribution Width SD 45.8 fl (35.1-43.9); Red Blood Count 5.02 M/mm3 (4.6-6.2); White Blood Count 8.4 K/mm3 (4.4-11.0)
[2021-12-07 17:33] LABS: AST(SGOT) 25 U/L (15-37); Alanine Aminotransfer ALT/SGPT 35 U/L (16-61); Albumin, Serum 3.8 g/dL (3.2-5.0); Alkaline Phosphatase 70 U/L (45-117); Anion Gap 4 (5-15); BUN 23 mg/dL (7-18); BUN/Creat Ratio 19.7 RATIO (10-20); Calcium,Total 9.3 mg/dL (8.5-10.1); Chloride 107 mmol/L (98-107); Creatinine, Serum 1.17 mg/dL (0.70-1.30); EST Glomerular Filtration Rate 67 mL/min (>60); Est Glom Filt Rate - Afr Amer 80 mL/min (>60); Globulin 3.9 g/dL (2.2-4.2); Glucose 87 mg/dL (74-106); Potassium 4.6 mmol/L (3.5-5.1); Protein, Total 7.7 g/dL (6.4-8.2); Sodium Level 138 mmol/L (136-145); Thyroid Stim Hormone (TSH) 5.79 uIU/mL (0.358-3.74)
== END 2021-12-07 23:59 | disposition short-term general hospital (02) ==
LOC: BIMLAB 15:44
PROVIDERS: PCP Internal Medicine; Referring Provider Internal Medicine; Visit Provider Internal Medicine
DX: F41.9 Anxiety disorder, unspecified (principal); F32.9 Major depressive disorder, single episode, unspecified
CPT/HCPCS: 36415; 80053; 84443; 85025

== ENCOUNTER → 2022-04-13 | Outpatient (CLI) | payer OTHER, SELFPAY ==
[2022-04-13 12:21] LABS: Absolute Lymphocyte Count 1.61 X10^3/uL (0.83-4.51); Basophil# 0.07 X10^3/uL; Basophil% 1.2 % (0-1); Eosinophil# 0.27 X10^3/uL; Eosinophils% 4.7 % (0-5); Hematocrit 47.6 % (40-54); Hemoglobin 15.7 g/dL (13.0-16.5); Lymphocyte # 1.61 X10^3/ul (0.83-4.51); Lymphocyte % 27.8 % (19-41); Mean Corpuscular Hgb 31.4 pg (27.0-32.0); Mean Corpuscular Volume 95.2 fL (80-94); Mean Platelet Vol. 9.2 fl (6.2-12.0); Monocyte% 13.8 % (0-10); NRBC Flagged by Analyzer 0 % (0-5); Neutrophil # 3.01 X10^3/uL (2.7-7.7); Platelet Count 220 K/mm3 (150-450); RBC Distribution Width CV 13.4 % (11.6-14.6); RBC Distribution Width SD 46.9 fl (35.1-43.9); White Blood Count 5.8 K/mm3 (4.4-11.0)
== END | disposition home or self-care (01) ==
LOC: MTLAB 10:45
PROVIDERS: PCP Internal Medicine; Referring Provider Internal Medicine; Visit Provider Internal Medicine
DX: Z00.00 Encounter for general adult medical examination without abnormal findings (principal); F41.9 Anxiety disorder, unspecified; F32.9 Major depressive disorder, single episode, unspecified
CPT/HCPCS: 36415; 84153; 85025; G0103

== ENCOUNTER → 2022-04-17 | Outpatient (CLI) | payer OTHER, SELFPAY ==
[2022-04-17 12:32] LABS: Thyroid Stim Hormone (TSH) 2.85 uIU/mL (0.358-3.74)
== END | disposition home or self-care (01) ==
LOC: BIMLAB 11:06
PROVIDERS: PCP Internal Medicine; Referring Provider Internal Medicine; Visit Provider Internal Medicine
DX: E03.9 Hypothyroidism, unspecified (principal)
CPT/HCPCS: 36415; 84443

== ENCOUNTER → 2022-04-26 | Outpatient (CLI) | payer OTHER, SELFPAY ==
[2022-04-26 16:39] LABS: Erythrocyte Sedimentation Rate 3 mm/hr (0-20)
[2022-04-26 17:07] LABS: CRP 4.52 mg/L (0.0-3.0); LDH 193 U/L (87-241)
[2022-04-28 12:08] LABS: Anti-Centromere B Ab <0.2 AI (0.0-0.9); Anti-Chromatin <0.2 AI (0.0-0.9); Anti-Jo <0.2 AI (0.0-0.9); Anti-Scleroderma-70 AB <0.2 AI (0.0-0.9); RNP Ab 0.2 AI (0.0-0.9); SJOGREN'S Anti-SS-A test < 0.2 AI (0.0-0.9); SJOGREN'S Anti-SS-B test < 0.2 AI (0.0-0.9); Smith Ab <0.2 AI (0.0-0.9)
[2022-04-28 13:06] LABS: Anti-dsDNA Ab <1 IU/mL (0-9)
[2022-05-03 12:08] LABS: Albumin 4.2 g/dL (2.9-4.4); Alpha-1-Globulins 0.3 g/dL (0.0-0.4); Alpha-2-Globulins 0.6 g/dL (0.4-1.0); Cytoplasmic Ab (C-ANCA) <1:20 titer (Neg:<1:20); Gamma Globulin 1.2 g/dL (0.4-1.8); Immunoglobulin A 182 mg/dL (61-437); Immunoglobulin G 1207 mg/dL (603-1613); Immunoglobulin M 72 mg/dL (20-172); PROEL- TOTAL PROTEIN 7.3 g/dL (6.0-8.5)
[2022-05-03 17:18] LABS: Carbohydrate Ag 19-9 2261 7 U/mL (0-35); Gastrin, Serum 21 pg/mL (0-115); Immunoglobulin E 21 IU/mL (6-495); Perinuclear Ab (P-ANCA) <1:20 titer (Neg:<1:20)
== END | disposition home or self-care (01) ==
LOC: LAB 16:21
PROVIDERS: PCP Internal Medicine; Referring Provider Internal Medicine Gastroenterology; Visit Provider Internal Medicine Gastroenterology
DX: R19.7 Diarrhea, unspecified (principal)
CPT/HCPCS: 36415; 82784; 82785; 82941; 83615; 84165; 85652; 86140; 86225; 86235; 86256; 86301; 86334

== ENCOUNTER → 2022-04-27 | Outpatient (CLI) | payer OTHER, SELFPAY ==
[2022-04-28 20:42] LABS: Calprotectin, Stool <16 ug/g (0-120)
[2022-05-02 07:57] LABS: Pancreatic Elastase, Fecal 472 (>200)
== END | disposition home or self-care (01) ==
LOC: LABSPEC 08:37
PROVIDERS: PCP Internal Medicine; Referring Provider Internal Medicine Gastroenterology; Visit Provider Internal Medicine Gastroenterology
DX: R19.7 Diarrhea, unspecified (principal); K58.9 Irritable bowel syndrome, unspecified
CPT/HCPCS: 82653; 83630; 83993

== ENCOUNTER 2022-06-12 08:45 | Day surgery (SDC) | payer OTHER, SELFPAY ==
[2022-06-12] VITALS (7 sets, daily range): BP systolic 107–145; BP diastolic 74–85; PULSE 63–75; RESP 16; TEMP 36.5–36.8; O2SAT 94–100; BMI 30.5
--- NOTE | 2022-06-12 09:12 | HP.PCM_ITS ---
History and Physical Date of Admission: 06/12/22 ?66 M who presents to the office today for?Initial consult. Aayush established with this clinic 04.26.22 with referral from PCP for evaluation of IBS-D. He was previously established with Dr. Mejia but has been having an increase in symptoms to include diarrhea that can be urgent but not always, bloating, abdominal discomfort without blood or mucous in stools or weight loss. Typically occurs in the morning with an ease of symptoms in the evening; stools in the morning are normal and turn toward diarrhea in the afternoon. Takes sertraline for anxiety and feels his anxiety is well managed with this; does feel that with increased anxiety he has increased symptoms. Unable to identify food triggers; PO intake does not change symptoms. Has not utilized any medications to address symptoms. Toward the evening he has been having alcohol intake and has been working at reducing liquor. Dose increase 3-4 months ago. Marijuana gummies three times a week, helpful with GI. Colonoscopy 11.04.[address] Mejia without pathologic changes/colitis. Exam Const General: cooperative, comfortable and no acute distress Orientation: alert, awake and oriented x3 HENKY Head: normal to inspection, normocephalic and atraumatic Ears: hearing grossly normal bilaterally Resp Effort & Inspection: normal respiratory effort and able to speak in complete sentences Auscultation: Bilateral: Clear to Auscultation Cardio Rate: regular rate Rhythm: regular rhythm Heart Sounds: S1 normal and S2 normal GI Palpation: soft (Non tender, no palpable organomegaly) Neuro General: patient alert, patient awake, patient oriented x3, moves all extremities and CN's II-XI intact bilaterally Extrem General: no clubbing, cyanosis or edema Psych Appearance: grossly normal Mental Status: mental status grossly normal Mood: congruent mood Affect: normal affect Quality Reporting Tobacco Screening ([facility] 138) Smoking Status: Former smoker Assessment and Plan Assessment and Plan (1) Irritable bowel syndrome with diarrhea: ?Status:?Chronic ?Plan: The differential diagnosis for his abdominal discomfort and frequent diarrhea stools is IBS with diarrhea.? However also diagnosis would be exocrine pancreatic insufficiency, small bacterial overgrowth, anemia, hypergastrinemia, because of his alcohol usage acute recurrent pancreatitis or chronic p ancreatitis.? We will get biochemical analysis along with a stool analysis and likely a CT scan of the abdomen pelvis with pancreatic protocol to look for signs of chronic pancreatitis we will also get an upper endoscopy to evaluate his upper GI tract for gastritis associated with atrophic gastritis, H. pylori associated gastritis, medication induced gastritis and less likely peptic ulcer disease.. ? ? ? Orders: Orders CRP Today R19.7 - Diarrhea, unspecified ? LDH Today R19.7 - Diarrhea, unspecified ? Erythrocyte Sed Rate Today R19.7 - Diarrhea, unspecified ? MAKENZIE Comprehensive Panel Today R19.7 - Diarrhea, unspecified ? Calprotectin, Stool Today R19.7 - Diarrhea, unspecified ? Stool Lactoferrin/WBC Today K58.9 - Irritable bowel syndrome without diarrhea, R19.7 - Diarrhea, unspecified ? ANCA Today R19.7 - Diarrhea, unspecified ? Immunoglobulin A Today R19.7 - Diarrhea, unspecified ? Immunoglobulin E Today R19.7 - Diarrhea, unspecified ? NAE + Protein Elect, Serum Today R19.7 - Diarrhea, unspecified ? Immunoglobulin G Today R19.7 - Diarrhea, unspecified ? Immunoglobulin M Today R19.7 - Diarrhea, unspecified ? Pancreatic Elastase, Fecal Today R19.7 - Diarrhea, unspecified ? CA 19-9 Serial Monitor Today R19.7 - Diarrhea, unspecified ? I have re-examined the patient. There are no clinical changes since date of exam.
[2022-06-12] MEDS: Lactated Ringers 1,000 ML 15 ML IV (09:28)
--- NOTE | 2022-06-12 10:43 | OP.EGD_ITS ---
Patient Name: Aayush Land Procedure Date: 06/12/2022 10:17 AM Date of : 1955 Age: 66 Procedure: Upper GI endoscopy Indications: Epigastric abdominal pain, Dysphagia Providers: Kyler Chow DO Medicines: Monitored Anesthesia Care Patient Profile: This is a 66 year old male. Refer to note in patient chart for documentation of history and physical. Patient has symptoms of chronic epigastric abdominal pain, dysphagia with solids and chronic dyspepsia. Complications: No immediate complications. Procedure: Pre-Anesthesia Assessment: - Prior to the procedure, a History and Physical was performed, and patient medications and allergies were reviewed. The risks and benefits of the procedure and the sedation options and risks were discussed with the patient. All questions were answered and informed consent was obtained. Patient identification and proposed procedure were verified by the physician in the pre-procedure area. Mental Status Examination: alert and oriented. Airway Examination: normal oropharyngeal airway and neck mobility. Respiratory Examination: clear to auscultation. CV Examination: normal. Prophylactic Antibiotics: The patient does not require prophylactic antibiotics. Prior Anticoagulants: The patient has taken no previous anticoagulant or antiplatelet agents. ASA Grade Assessment: II - A patient with mild systemic disease. After reviewing the risks and benefits, the patient was deemed in satisfactory condition to undergo the procedure. The anesthesia plan was to use moderate sedation / analgesia (conscious sedation). Immediately prior to administration of medications, the patient was re-assessed for adequacy to receive sedatives. The heart rate, respiratory rate, oxygen saturations, blood pressure, adequacy of pulmonary ventilation, and response to care were monitored throughout the procedure. The physical status of the patient was re-assessed after the procedure. After obtaining informed consent, the endoscope was passed under direct vision. Throughout the procedure, the patient's blood pressure, pulse, and oxygen saturations were monitored continuously. The Endoscope was introduced through the mouth, and advanced to the second part of duodenum. The upper GI endoscopy was accomplished without difficulty. The patient tolerated the procedure well. Scope In: 10:30:28 AM Scope Out: 10:37:32 AM Total Procedure Duration Time 0 hours 7 minutes 4 seconds Findings: A moderate Schatzki ring was found in the upper third of the esophagus and in the distal esophagus. A guidewire was placed and the scope was withdrawn. Dilation was performed with a Savary dilator with no resistance at 51 Fr. The dilation site was examined following endoscope reinsertion and showed moderate improvement in luminal narrowing. Estimated blood loss was minimal. The Z-line was irregular and was found 38 cm from the incisors. Biopsies were taken with a cold forceps for histology. Verification of patient identification for the specimen was done. Estimated blood loss was minimal. A medium-sized hiatal hernia was present. Patchy mildly erythematous mucosa without bleeding was found at the pylorus. Biopsies were taken with a cold forceps for histology. Verification of patient identification for the specimen was done. Estimated blood loss was minimal. No gross lesions were noted in the second portion of the duodenum. Impression: - Moderate Schatzki ring. Dilated. - Z-line irregular, 38 cm from the incisors. Biopsied. - Medium-sized hiatal hernia. - Erythematous mucosa in the pylorus. Biopsied. - No gross lesions in the second portion of the duodenum. Recommendation: - Discharge patient to home. - Resume previous diet. - Continue present medications. - Await pathology results. - Repeat upper endoscopy in 1 year for surveillance based on pathology results. Procedure Code(s): --- Professional --- 05695, Esophagogastroduodenoscopy, flexible, transoral; with insertion of guide wire followed by passage of dilator(s) through esophagus over guide wire 85136, 59,51, Esophagogastroduodenoscopy, flexible, transoral; with biopsy, single or multiple CPT copyright 2017 [employer]. All rights reserved. The codes documented in this report are preliminary and upon agency owner review may be revised to meet current compliance requirements. Kyler Chow DO 06/12/2022 10:43:08 AM This report has been signed electronically. Number of Addenda: 1 Note Initiated On: 06/12/2022 10:17 AM Addendum Number: 1 Addendum Date: 08/10/2022 6:24:31 AM MAC was used as sedation for this procedure. Kyler Chow DO 08/10/2022 6:24:34 AM This report has been signed electronically.
--- NOTE | 2022-06-12 10:44 | OP.CCLET_ITS ---
08/10/2022 Bean John MD [address] [place] [address] [place] [address] Re : Upper GI endoscopy procedure for Aayush Land Dear Dr. John This procedure was performed on Sunday, June 12, 2022. My impressions and recommendations are as follows: Impressions : - Moderate Schatzki ring. Dilated. - Z-line irregular, 38 cm from the incisors. Biopsied. - Medium-sized hiatal hernia. - Erythematous mucosa in the pylorus. Biopsied. - No gross lesions in the second portion of the duodenum. Recommendations : - Discharge patient to home. - Resume previous diet. - Continue present medications. - Await pathology results. - Repeat upper endoscopy in 1 year for surveillance based on pathology results. My findings are described in the full procedure note, which is enclosed. If I can be of further assistance, please feel free to contact me at . Sincerely, Kyler Chow, 06/12/2022 10:43:08 AM This report has been signed electronically.
--- NOTE | 2022-06-12 10:45 | EGD_PTH ---
PATIENT: WILVER SANTIAGO LOC: EN U#:[id number] AGE/SX: 66/M ROOM: RE06/12/[address]: Dr. Kyler Chow DO : 1955 BED: DIS: 06/12/2022 SPEC #: [id number] RECD: 06/12/22 10:58 STATUS: ROBER REQ #: [id number] ERICA: 06/12/22 10:[address]: Kyler Chow DEPT: SURGICAL PATHOLOGY RECD BY: Tammie Starkey ENTERED: 06/12/22 13:07 SP TYPE: EGD [facility] DR: Dr. Bean John MD Tissues: A - Pylorus B - Esophagus, NOS Procedures: Special Stain Group II Surgery Specimen Level IV Alcian Blue/PAS (control) HEADER OPERATION: [place] [place] PRE-OP DIAGNOSIS: Irritable bowel syndrome with diarrhea TISSUE SUBMITTED: A ? Pylorus biopsy, B ? Distal esophagus biopsy MICROSCOPIC DIAGNOSIS A. Gastric pylorus, biopsy: Chronic gastritis. See comment. B. Distal esophagus, biopsy: Gastroesophageal junctional mucosa with mild chronic inflammation. Focal changes of reflux. 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 See comment. AM:cornelio 06/13/2022 COMMENT A. The results of immunohistochemistry for Helicobacter pylori will be reported separately ([id number]). B. Immunohistochemistry ([id number]) for P53 and Ki-67 will be performed and results will be reported separately. Alcian blue/PAS stain with matched control supports the above diagnosis. Case has been reviewed in consultation with Dr. Chavez who concurs with the above diagnosis. IDC:SJ MICROSCOPIC DESCRIPTION Slides are reviewed. GROSS DESCRIPTION A - Received in fixative is one container labeled with the patient's name and designated pylorus biopsy. The specimen consists of two irregular fragments of light raya soft tissue that in aggregate measure 0.8 x 0.2 x 0.1 cm. The specimen is totally submitted in one cassette. B - Received in fixative is one container labeled with the patient's name and designated distal esophagus biopsy. The specimen consists of multiple irregular fragments of light raya soft tissue that in aggregate measure 0.5 x 0.5 x 0.1 cm. The specimen is totally submitted in one cassette. / SJ:cornelio 06/12/2022 TC:? CPT: 20354 x2, 09508
--- NOTE | 2022-06-12 10:45 | IMM_PTH ---
PATIENT: WILVER SANTIAGO LOC: EN U#:[id number] AGE/SX: 66/M ROOM: RE06/12/[address]: Dr. Kyler Chow DO : 1955 BED: DIS: 06/12/2022 SPEC #: [id number] RECD: 06/12/22 13:46 STATUS: ROBER REQ #: [id number] ERICA: 06/12/22 10:[address]: Kyler Chow DEPT: IMMUNOHISTOCHEMISTRY RECD BY: Rubi Ibrahim ENTERED: 06/12/22 13:47 SP TYPE: IMMUNO OTHR DR: Dr. Bean John MD Tissues: A - Pyloric antrum B - Esophagus, NOS Procedures: H Pylori (initial) P53 (initial) KI-67 (add) PHYSICIAN & INSTITUTION [place] [id number] SPECIMEN INFORMATION: Tissue Source: A - Pylorus biopsy, B ? Distal esophagus biopsy Clinical Info: Irritable bowel syndrome with diarrhea Specimen Number: [id number] A & B CPT code: 56717 x2, 94588 METHODOLOGY: Deparaffinized sections of prefer/formalin-fixed tissue or PAP/DQ stained slides are incubated with monoclonal/polyclonal antibodies/oligonucleotide probes. Localization is made via biotin free immunoperoxidase method. Appropriate controls are performed and reacted as expected. Results on target cell population are indicated in the following table: RESULTS: ANTIBODY / CLONE RESULT Block A H Pylori (polyclonal) negative Block B P53 (DO-7) positive, weak to moderate Ki-67 (30-9) positive, low These tests were developed and their performance characteristics determined by [facility]. They may not have been cleared or approved by the U.S. Food and Drug Administration. The FDA has determined that such clearance or approval is not necessary. The above immunohistochemical/dualISH markers are ordered and reviewed by the Pathologist. INTERPRETATION: A. Pylorus, biopsy: Negative for Helicobacter pylori organisms. B. Distal esophagus, biopsy: Consistent with low-grade dysplasia. AM:cornelio 06/15/2022 Case has been reviewed in consultation with Dr. Chavez who concurs with the above diagnosis. IDC:DARIN
== END 2022-06-12 11:19 | disposition home or self-care (01) ==
LOC: EN 08:46 → AC 08:48
PROVIDERS: PCP Internal Medicine; Referring Provider Internal Medicine; Visit Provider Internal Medicine Gastroenterology
PROC: 0DJ08ZZ Inspection of Upper Intestinal Tract, Via Natural or Artificial Opening Endoscopic (ICD-10-PCS; CPT 43235; principal; 2022-06-12 10:40)
DX: K29.50 Unspecified chronic gastritis without bleeding (principal); K21.00 Gastro-esophageal reflux disease with esophagitis, without bleeding; K58.0 Irritable bowel syndrome with diarrhea; F32.A Depression, unspecified; M10.9 Gout, unspecified; E03.9 Hypothyroidism, unspecified; Z79.899 Other long term (current) drug therapy; F41.9 Anxiety disorder, unspecified; K22.2 Esophageal obstruction; K44.9 Diaphragmatic hernia without obstruction or gangrene
CPT/HCPCS: 43248; 43239; 88305; 88313; 88341; 88342; J7120; C1769; J2405

== ENCOUNTER → 2022-08-22 | Outpatient (CLI) | payer OTHER, SELFPAY | END | disposition home or self-care (01) | LOC: LABSPEC 07:01 | PROVIDERS: PCP Internal Medicine; Referring Provider Internal Medicine Gastroenterology; Visit Provider Internal Medicine Gastroenterology | DX: R19.7 Diarrhea, unspecified (principal) | CPT/HCPCS: 87493; 87506 ==

== ENCOUNTER 2022-10-02 07:54 | Outpatient (RCR) | payer OTHER, SELFPAY | END 2022-10-04 23:59 | LOC: NS 07:54 | PROVIDERS: PCP Internal Medicine; Visit Provider Nurse Practitioner Adult Health | DX: K58.0 Irritable bowel syndrome with diarrhea (principal) | CPT/HCPCS: 97802 ==

== ENCOUNTER 2022-11-29 15:15 | Outpatient (RCR) | payer OTHER, SELFPAY | END 2022-12-05 23:59 | LOC: NS 15:15 | PROVIDERS: PCP Internal Medicine; Referring Provider Nurse Practitioner Adult Health; Visit Provider Nurse Practitioner Adult Health | DX: Z71.3 Dietary counseling and surveillance (principal); K58.0 Irritable bowel syndrome with diarrhea | CPT/HCPCS: 97803 ==

== ENCOUNTER 2022-12-21 06:49 | Day surgery (SDC) | payer OTHER, SELFPAY ==
[2022-12-21] VITALS (7 sets, daily range): BP systolic 109–138; BP diastolic 75–84; PULSE 55–68; RESP 16–18; TEMP 36.1–36.9; O2SAT 93–98; BMI 30.4
--- NOTE | 2022-12-21 07:25 | PCM.HP.BLA ---
History and Physical Date of Admission: 12/21/22 AAYUSH SANTIAGO, is a 66 M who presents to the office today for 2-month follow-up IBS with diarrhea, hiatal hernia, Castillo's esophagus.? At his last visit Dr. Chow increased PPI therapy to twice a day, patient is on pantoprazole 40 mg twice daily, he always remembers the morning dose and almost always remembers to take the p.m. dose.? He does not have a history of heartburn.? He have a medium sized hiatal hernia.? His 06/12/2022 EGD showed short segment Castillo's esophagus, and has no metaplasia consistent with Castillo's esophagus, consistent with focal low-grade dysplasia, Ki-67 positive, p53 positive. At his last visit he was started on colestipol 1 g at at bedtime for IBS-D, taking it once a day, not has beneficial as he would like but it has made a difference. Usually has a normal BM in the morning, but then can episodes of loose stool later in the morning. Less bloating and gas on colestipol. Much less urgent BMs now. He stopped drinking coffee, that has helped decrease the loose stools.? He was treated for C diff colitis with vancomycin x 14 days in 08/2022; he had called in with c/o increased diarrhea. He is already on a daily probiotic.? Gastrin level was normal at 21 on 04/26/2022.? Per the recommendation of his , he asks about seeing a dietitian to help make better food choices.? He recognizes that he needs to decrease his alcohol consumption; he declines help for that at this time, he says he has discussed that with Dr. John. Aayush established with this clinic 04.26.22 with referral from PCP for evaluation of IBS-D. 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 Mejia but has been having an increase in symptoms to include diarrhea that can be urgent but not always, bloating, abdominal discomfort without blood or mucous in stools or weight loss. ? Marijuana gummies three times a week? ? Biochemical workup CRP, LDH, ESR, MAKENZIE comp, ANCA, GAME, CA 19-9 all without pertinent abnormality.? CRP H 4.52? Stool studies calprotectin, elastase, lactoferrin without pertinent abnormality? ? 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 H.Pylori negative.? ROS Const Constitutional: No fatigue ENT ENT: No difficulty swallowing Gastro GI: Positive for bloating, diarrhea and excessive flatus; No abdominal pain, belching, change in bowel habits, change in stool character, coffee ground emesis, constipation, cramping, heartburn, difficulty swallowing, feeling full early, incontinent of stools, Vomiting blood/hematemesis, Blood in stool, loose stools, Black,tarry stools, nausea/dyspepsia, pain with swallowing, vomiting or other Musc Musculoskeletal: No joint pain Skin Skin: No yellowing of the eye or itchy eyes Psych Psychiatric: Positive for anxiety and No depression Endo Endocrine: No fatigue Aller/Imm Allergy/Immunologic: No itchy eyes Jam/Lymp Hematologic/Lymphatic: No easy bleeding or easy bruising Exam Const General: cooperative, comfortable and no acute distress Nutritional Appearance: overweight Orientation: alert, awake and oriented x3 Quality Reporting Tobacco Screening ([facility] [address]) Smoking Status: Never smoker Assessment and Plan Assessment and Plan (1) Barretts esophagus: ?Status:?Acute ?Plan: Continue? pantoprazole 40 mg BID, repeat EGD in approximately May 2023. (2) Irritable bowel syndrome with diarrhea: ?Status:?Chronic ?Plan: Continue colestipol 1 g at HS Try adding psyllium husk to regimen to thicken up the stools Refer to nutrition services for IBS-D He recognizes that he needs to decrease his alcohol intake Follow-up 3 to 4 months ? ? ? Orders: Referrals Nutrition Referral ? 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bowel syndrome with diarrhea ? Medications: Discontinued methylprednisolone (Medrol (Petros)) ?? Discontinued Reason:? Pt no longer taking ?PO PER PKG DIR 21 tabs 0RF ? ? cephalexin ?? Take with food ?? Discontinued Reason:? Pt no longer taking 500 mg? PO TID 21 tabs 0RF ? ? diphenoxylate-atropine 2.5-0.025 mg (Lomotil) ?? Discontinued Reason:? Pt no longer taking 1 TAB? PO BID PRN 60 tabs 0RF diarrhea ? ? vancomycin ?? take 125 mg 4 times per day for 14 days ?? Discontinued Reason:? Pt no longer taking 125 mg? PO DIRECTED 56 caps 0RF ? ? I have examined the patient and the H&P has been reviewed. There are no clinical changes since date of exam.
[2022-12-21] MEDS: Lactated Ringers 1,000 ML 15 ML IV (07:36)
--- NOTE | 2022-12-21 08:31 | OP.EGD_ITS ---
Patient Name: Aayush Land Procedure Date: 12/21/2022 7:54 AM Date of : 1955 Age: 67 Procedure: Upper GI endoscopy Indications: Castillo's low grade dysplasia Providers: Kyler Chow DO Medicines: Monitored Anesthesia Care Patient Profile: This is a 67 year old male. Refer to note in patient chart for documentation of history and physical. Patient has symptoms of acute heartburn. Is status post within the past six months. Complications: No immediate complications. Procedure: Pre-Anesthesia Assessment: - Prior to the procedure, a History and Physical was performed, and patient medications and allergies were reviewed. The risks and benefits of the procedure and the sedation options and risks were discussed with the patient. All questions were answered and informed consent was obtained. Patient identification and proposed procedure were verified by the physician. Mental Status Examination: normal. Respiratory Examination: clear to auscultation. CV Examination: normal. Prophylactic Antibiotics: The patient does not require prophylactic antibiotics. Prior Anticoagulants: The patient has taken no previous anticoagulant or antiplatelet agents. ASA Grade Assessment: II - A patient with mild systemic disease. After reviewing the risks and benefits, the patient was deemed in satisfactory condition to undergo the procedure. The anesthesia plan was to use monitored anesthesia care (MAC). Immediately prior to administration of medications, the patient was re-assessed for adequacy to receive sedatives. The heart rate, respiratory rate, oxygen saturations, blood pressure, adequacy of pulmonary ventilation, and response to care were monitored throughout the procedure. The physical status of the patient was re-assessed after the procedure. After obtaining informed consent, the endoscope was passed under direct vision. Throughout the procedure, the patient's blood pressure, pulse, and oxygen saturations were monitored continuously. The gastroscope was introduced through the mouth, and advanced to the second part of duodenum. The upper GI endoscopy was accomplished without difficulty. The patient tolerated the procedure well. Scope In: 8:07:00 AM Scope Out: 8:20:17 AM Total Procedure Duration Time 0 hours 13 minutes 17 seconds Findings: The esophagus and gastroesophageal junction were examined with white light and narrow band imaging (NBI) from a forward view and retroflexed position. There were esophageal mucosal changes secondary to established short-segment Castillo's disease. These changes involved the mucosa along an irregular Z-line (38 cm from the incisors). [place]-colored mucosa was present. The maximum longitudinal extent of these esophageal mucosal changes was 3 cm in length. Focal radiofrequency ablation of Castillo's esophagus was performed. With the endoscope in place, the position and extent of the Castillo's mucosa and the anatomic landmarks including proximal and distal extent of Castillo's mucosa and top of gastric folds were noted. Endoscopic visualization identified an ablation site including the entire visible Castillo's segment. The Castillo's mucosa was irrigated with saline. Gastric contents were suctioned. The endoscope was then removed from the patient. The [id number]-90 Ultra radiofrequency ablation catheter was attached to the tip of the endoscope. The endoscope with the attached radiofrequency ablation catheter was then passed transorally under direct vision into the esophagus and advanced to the areas of Castillo's mucosa. The areas included tongues of Castillo's mucosa. The radiofrequency ablation catheter was placed in contact with the surface of the Castillo's mucosa under direct visualization and energy was applied twice at 12 J/cm2. Ablation was repeated in a likewise fashion to all visible Castillo's mucosa. The ablation zone was cleaned of coagulative debris. The ablation catheter and endoscope were then removed and the catheter was cleaned. The catheter and endoscope were reinserted into the esophagus. A second round of ablation was then performed. Energy was applied twice at 12 J/cm2 to retreat the areas of Castillo's epithelium that had been treated with the first series of ablation. The areas of the esophagus where Castillo's mucosa had been ablated were examined. Areas of visible Castillo's esophagus were completely ablated. Estimated blood loss was minimal. A small hiatal hernia was present. No other significant abnormalities were identified in a careful examination of the stomach. The cardia and gastric fundus were normal on retroflexion. No gross lesions were noted in the first portion of the duodenum. Impression: - Esophageal mucosal changes secondary to established short-segment Castillo's disease. Treated with radiofrequency ablation. - Small hiatal hernia. - No gross lesions in the first portion of the duodenum. - No specimens collected. Recommendation: - Discharge patient to home. - Resume previous diet. - Continue present medications. - Await pathology results. - Repeat upper endoscopy in 4 months for surveillance. Procedure Code(s): --- Professional --- 99081, Esophagogastroduodenoscopy, flexible, transoral; with ablation of tumor(s), polyp(s), or other lesion(s) (includes pre- and post-dilation and guide wire passage, when performed) CPT copyright 2017 [employer]. All rights reserved. The codes documented in this report are preliminary and upon real estate photographer review may be revised to meet current compliance requirements. Kyler Chow DO 12/21/2022 8:31:00 AM This report has been signed electronically. Number of Addenda: 0 Note Initiated On: 12/21/2022 7:54 AM
--- NOTE | 2022-12-21 08:32 | OP.CCLET_ITS ---
12/21/2022 Bean John MD [address] [place] [address] [place] [address] Re : Upper GI endoscopy procedure for Aayush Land Dear Dr. John This procedure was performed on December. My impressions and recommendations are as follows: Impressions : - Esophageal mucosal changes secondary to established short-segment Castillo's disease. Treated with radiofrequency ablation. - Small hiatal hernia. - No gross lesions in the first portion of the duodenum. - No specimens collected. Recommendations : - Discharge patient to home. - Resume previous diet. - Continue present medications. - Await pathology results. - Repeat upper endoscopy in 4 months for surveillance. My findings are described in the full procedure note, which is enclosed. If I can be of further assistance, please feel free to contact me at . Sincerely, Kyler Chow, 12/21/2022 8:31:00 AM This report has been signed electronically.
== END 2022-12-21 09:20 | disposition home or self-care (01) ==
LOC: EN 06:51 → AC 06:52
PROVIDERS: PCP Internal Medicine; Referring Provider Internal Medicine; Visit Provider Internal Medicine Gastroenterology
PROC: 0DJ08ZZ Inspection of Upper Intestinal Tract, Via Natural or Artificial Opening Endoscopic (ICD-10-PCS; CPT 43235; principal; 2022-12-21 07:55)
DX: K44.9 Diaphragmatic hernia without obstruction or gangrene (principal); K22.70 Barrett's esophagus without dysplasia; K58.0 Irritable bowel syndrome with diarrhea
CPT/HCPCS: 43270; J7120

== ENCOUNTER → 2023-01-15 | Outpatient (CLI) | payer OTHER, SELFPAY ==
[2023-01-15 12:41] LABS: Absolute Lymphocyte Count 1.49 X10^3/uL (0.83-4.51); Absolute Neutrophil Count 6.3 X10^3/uL (2.0-7.7); Basophil# 0.09 X10^3/uL; Eosinophil# 0.46 X10^3/uL; Hematocrit 48.4 % (40-54); Hemoglobin 15.7 g/dL (13.0-16.5); Lymphocyte # 1.49 X10^3/ul (0.83-4.51); Lymphocyte % 16.2 % (19-41); Mean Corp Hgb Conc 32.4 g/dL (32-36); Mean Corpuscular Hgb 31.4 pg (27.0-32.0); Mean Corpuscular Volume 96.8 fL (80-94); Mean Platelet Vol. 9.3 fl (6.2-12.0); Monocyte# 0.83 X10^3/uL; NRBC Flagged by Analyzer 0 % (0-5); Neutrophil % 68.4 % (47-70); Platelet Count 258 K/mm3 (150-450); RBC Distribution Width CV 13.1 % (11.6-14.6); RBC Distribution Width SD 46.8 fl (35.1-43.9); White Blood Count 9.2 K/mm3 (4.4-11.0)
[2023-01-15 12:47] LABS: AST(SGOT) 23 U/L (15-37); Alanine Aminotransfer ALT/SGPT 28 U/L (16-61); Albumin, Serum 3.7 g/dL (3.2-5.0); Alkaline Phosphatase 69 U/L (45-117); Anion Gap 7 (5-15); BUN 16 mg/dL (7-18); BUN/Creat Ratio 14.7 RATIO (10-20); Calcium,Total 9.4 mg/dL (8.5-10.1); Chloride 107 mmol/L (98-107); Cholesterol 234 mg/dL (200); Creatinine, Serum 1.09 mg/dL (0.70-1.30); EST Glomerular Filtration Rate 72 mL/min (>60); Est Glom Filt Rate - Afr Amer 87 mL/min (>60); Globulin 3.8 g/dL (2.2-4.2); Glucose 87 mg/dL (74-106); High Density Lipoprotein 111 mg/dL; Potassium 4.3 mmol/L (3.5-5.1); Protein, Total 7.5 g/dL (6.4-8.2); Sodium Level 142 mmol/L (136-145); Triglycerides 56 mg/dL; Very Low Density Lipoprotein 11 mg/dL (5-40)
== END | disposition home or self-care (01) ==
LOC: BIMLAB 10:26
PROVIDERS: PCP Internal Medicine; Referring Provider Internal Medicine; Visit Provider Internal Medicine
DX: F41.9 Anxiety disorder, unspecified (principal); F32.9 Major depressive disorder, single episode, unspecified; E03.9 Hypothyroidism, unspecified
CPT/HCPCS: 36415; 80053; 80061; 84443; 85025

== ENCOUNTER 2023-05-10 09:02 | Day surgery (SDC) | payer OTHER, SELFPAY ==
[2023-05-10] VITALS (7 sets, daily range): BP systolic 102–133; BP diastolic 78–93; PULSE 66–91; RESP 16–18; TEMP 36.4–36.7; O2SAT 94–98; BMI 31.8
[2023-05-10] MEDS: Lactated Ringers 1,000 ML 15 ML IV (09:32)
--- NOTE | 2023-05-10 10:13 | HP.PCM_ITS ---
History and Physical Date of Admission: 05/10/23 67 M who presents to the office today for f/u esophageal radio frequency ablation for Castillo's esophagus with low-grade dysplasia. The ablation procedure was done on 12/21/22, it went well, pt reports no complaints following the procedure. Dr Chow recommends repeat EGD in approx 4 mos. Diarrhea under good control with changes recommended by the fiscal accounting clerk--low fiber diet and smaller, more frequent meals. Taking miralax once daily now to prevent constipation from the low-fiber diet. No longer on colestipol. 12/21/22 EGD Impression: ? - Esophageal mucosal changes secondary to ? established short-segment Castillo's disease. ? Treated with radiofrequency ablation. ? - Small hiatal hernia. ? - No gross lesions in the first portion of the ? duodenum. ? - No specimens collected. ROS Const Constitutional: No fatigue ENT ENT: No difficulty swallowing Gastro GI: No abdominal pain, belching, bloating, change in bowel habits, change in stool character, coffee ground emesis, constipation, cramping, diarrhea, heartburn, difficulty swallowing, feeling full early, excessive flatus, incontinent of stools, Vomiting blood/hematemesis, Blood in stool, loose stools, Black,tarry stools, nausea/dyspepsia, pain with swallowing, vomiting or other Musc Musculoskeletal: No joint pain Skin Skin: No yellowing of the eye or itchy eyes Psych Psychiatric: No anxiety and No depression Endo Endocrine: No fatigue Aller/Imm Allergy/Immunologic: No itchy eyes Jam/Lymp Hematologic/Lymphatic: No easy bleeding or easy bruising Exam Const General: cooperative, healthy appearing and comfortable Orientation: alert, awake and oriented x3 Quality Reporting Tobacco Screening ([facility]) Smoking Status: Former smoker Assessment and Plan Assessment and Plan (1) Castillo's esophagus with low grade dysplasia: Status: Acute Plan: RFA for Castillo's with dysplasia was done on 12/21/22 Repeat EGD in Summer 2022 w/ office f/u 2 wks later Continue PPI I have examined the patient and the H&P has been reviewed. There are no clinical changes since date of exam.
--- NOTE | 2023-05-10 10:40 | OP.EGD_ITS ---
Patient Name: Aayush Land Procedure Date: 05/10/2023 10:08 AM Date of : 1955 Age: 67 Procedure: Upper GI endoscopy Indications: For therapy of Castillo's esophagus with low grade dysplasia, Follow-up of previous ablation treatment of Castillo's esophagus, Follow-up of previous radiofrequency ablation treatment of Castillo's esophagus Providers: Kyler Chow DO Medicines: Monitored Anesthesia Care Patient Profile: This is a 67 year old male. Refer to note in patient chart for documentation of history and physical. Patient has symptoms of chronic heartburn. Complications: No immediate complications. Procedure: Pre-Anesthesia Assessment: - Prior to the procedure, a History and Physical was performed, and patient medications and allergies were reviewed. The risks and benefits of the procedure and the sedation options and risks were discussed with the patient. All questions were answered and informed consent was obtained. Patient identification and proposed procedure were verified by the physician in the pre-procedure area. Mental Status Examination: alert and oriented. Airway Examination: normal oropharyngeal airway and neck mobility. Respiratory Examination: clear to auscultation. CV Examination: normal. Prophylactic Antibiotics: The patient does not require prophylactic antibiotics. Prior Anticoagulants: The patient has taken no previous anticoagulant or antiplatelet agents. After reviewing the risks and benefits, the patient was deemed in satisfactory condition to undergo the procedure. The anesthesia plan was to use monitored anesthesia care (MAC). Immediately prior to administration of medications, the patient was re-assessed for adequacy to receive sedatives. The heart rate, respiratory rate, oxygen saturations, blood pressure, adequacy of pulmonary ventilation, and response to care were monitored throughout the procedure. The physical status of the patient was re-assessed after the procedure. After obtaining informed consent, the endoscope was passed under direct vision. Throughout the procedure, the patient's blood pressure, pulse, and oxygen saturations were monitored continuously. The gastroscope was introduced through the mouth, and advanced to the second part of duodenum. The upper GI endoscopy was accomplished without difficulty. The patient tolerated the procedure well. Scope In: 10:17:51 AM Scope Out: 10:32:05 AM Total Procedure Duration Time 0 hours 14 minutes 14 seconds Findings: The esophagus and gastroesophageal junction were examined with white light and narrow band imaging (NBI) from a forward view and retroflexed position. There were esophageal mucosal changes secondary to established short-segment Castillo's disease. These changes involved the mucosa extending to the Z-line. [place]-colored mucosa was present. The maximum longitudinal extent of these esophageal mucosal changes was 3 cm in length. Focal radiofrequency ablation of Castillo's esophagus was performed. With the endoscope in place, the position and extent of the Castillo's mucosa and the anatomic landmarks including proximal and distal extent of Castillo's mucosa and top of gastric folds were noted. Endoscopic visualization identified an ablation site including the entire visible Castillo's segment. The Castillo's mucosa was irrigated with saline and N-acetylcysteine (Mucomyst) 1% mixed with water. Gastric and esophageal contents were suctioned. The radiofrequency channel ablation catheter was introduced through the endoscope working channel. Castillo's tissue was targeted. The endoscope with the ablation catheter was advanced to the areas of Castillo's mucosa. The areas included circumferential areas of Castillo's mucosa. The endoscope with the channel ablation catheter was positioned under direct visualization so that the catheter was placed in contact with the surface of the Castillo's mucosa. Energy was applied twice at 12 J/cm2. Ablation was repeated in a likewise fashion to all visible Castillo's mucosa. The channel ablation catheter was then removed through the endoscope working channel, and the ablation catheter was cleaned. The endoscope was left in place. The ablation zone was cleaned of coagulative debris. The ablation catheter was reinserted into the endoscope working channel. A second round of ablation was then performed. Energy was applied twice at 12 J/cm2 to retreat the areas of Castillo's epithelium that had been treated with the first series of ablation. The ablation catheter was removed through the endoscope working channel. The areas of the esophagus where Castillo's mucosa had been ablated were examined. Areas of visible Castillo's esophagus were completely ablated. The endoscope was then removed. A hiatal hernia was present. No other significant abnormalities were identified in a careful examination of the stomach. The first portion of the duodenum was normal. Impression: - Esophageal mucosal changes secondary to established short-segment Castillo's disease. Treated with radiofrequency ablation. - Hiatal hernia. - Normal first portion of the duodenum. - No specimens collected. Recommendation: - Discharge patient to home. - Resume previous diet. - Continue present medications. - Await pathology results. - Repeat upper endoscopy in 3 months to assess disease activity. Procedure Code(s): --- Professional --- 81137, Esophagogastroduodenoscopy, flexible, transoral; with ablation of tumor(s), polyp(s), or other lesion(s) (includes pre- and post-dilation and guide wire passage, when performed) CPT copyright 2017 [employer]. All rights reserved. The codes documented in this report are preliminary and upon scientist engineer review may be revised to meet current compliance requirements. Kyler Chow DO 05/10/2023 10:39:40 AM This report has been signed electronically. Number of Addenda: 0 Note Initiated On: 05/10/2023 10:08 AM
--- NOTE | 2023-05-10 10:41 | OP.CCLET_ITS ---
05/10/2023 Bean John MD [address] [place] [address] [place] [address] Re : Upper GI endoscopy procedure for Aayush Land Dear Dr. John This procedure was performed on May. My impressions and recommendations are as follows: Impressions : - Esophageal mucosal changes secondary to established short-segment Castillo's disease. Treated with radiofrequency ablation. - Hiatal hernia. - Normal first portion of the duodenum. - No specimens collected. Recommendations : - Discharge patient to home. - Resume previous diet. - Continue present medications. - Await pathology results. - Repeat upper endoscopy in 3 months to assess disease activity. My findings are described in the full procedure note, which is enclosed. If I can be of further assistance, please feel free to contact me at . Sincerely, Kyler Chow, 05/10/2023 10:39:40 AM This report has been signed electronically.
== END 2023-05-10 11:30 | disposition home or self-care (01) ==
LOC: EN 09:08 → AC 09:09
PROVIDERS: PCP Internal Medicine; Referring Provider Internal Medicine; Visit Provider Internal Medicine Gastroenterology
PROC: 0DJ08ZZ Inspection of Upper Intestinal Tract, Via Natural or Artificial Opening Endoscopic (ICD-10-PCS; CPT 43235; principal; 2023-05-10 10:10)
DX: K44.9 Diaphragmatic hernia without obstruction or gangrene (principal); K22.710 Barrett's esophagus with low grade dysplasia; Z87.891 Personal history of nicotine dependence
CPT/HCPCS: 43270; J7120; J2405

== ENCOUNTER 2023-09-05 07:21 | Day surgery (SDC) | payer OTHER, SELFPAY ==
--- NOTE | 2023-09-04 08:30 | EGD_PTH ---
PATIENT: WILVER SANTIAGO LOC: EN U#:[id number] AGE/SX: 67/M ROOM: RE09/05/[address]: Dr. Kyler Chow DO : 1955 BED: DIS: 09/05/2023 SPEC #: [id number] RECD: 09/05/23 10:42 STATUS: ROBER MEGHAN #: [id number] ERICA: 09/04/23 08:[address]: Kyler Chow DEPT: SURGICAL PATHOLOGY RECD BY: Belia Quinones ENTERED: 09/05/23 11:46 SP TYPE: EGD BIOPSY OT DR: Dr. Bean John MD Tissues: Esophageal mucous membrane Procedures: Special Stain Group II Surgery Specimen Level IV Alcian Blue/PAS (control) HEADER OPERATION: EGD with RFA with biopsy PRE-OP DIAGNOSIS: Castillo's esophagus with low grade dysplasia TISSUE SUBMITTED: Distal esophagus MICROSCOPIC DIAGNOSIS Distal esophagus, biopsy: Fragments of gastroesophageal mucosa with chronic inflammation. Intestinal metaplasia (goblet cell metaplasia) not identified. See comment. DARIN:cornelio 09/06/2023 COMMENT Alcian blue/PAS stain with matched control is used in the evaluation of the specimen. Correlation with clinical, endoscopic findings and appropriate follow up are necessary. Please make reference to previous specimen ([id number]), distal esophagus, biopsy with diagnosis of intestinal metaplasia consistent with Castillo's esophagus and consistent with focal low-grade dysplasia. MICROSCOPIC DESCRIPTION Slides are reviewed. GROSS DESCRIPTION Received in fixative is one container labeled with the patient's name and designated distal esophagus. The specimen consists of multiple irregular fragments of light raya soft tissue that in aggregate measure 1.5 x 0.3 x 0.1 cm. The specimen is totally submitted in one cassette. / DARIN:cornelio 09/05/2023 TC:3 CPT: 04428, 51774
[2023-09-05] MEDS: Lactated Ringers 1,000 ML 15 ML IV (07:45)
[2023-09-05 07:46] VITALS: BP 130/88; PULSE 68; RESP 18; TEMP 36; O2SAT 100; BMI 32.1
--- NOTE | 2023-09-05 08:00 | HP.PCM_ITS ---
History and Physical Date of Admission: 09/05/23 67-year-old man presents for follow-up regarding his recent diagnosis of gastroesophageal reflux disease with Castillo's esophagus and low-grade dysplasia. Previous GI Dr. Mejia workup: ? Colonoscopy 11.04.18 without pathologic changes/colitis.? *BGI established 04.26.22 with loose stools; no medications attempted, working at reducing alcohol intake; marijuana gummies. Biochemical CRP, LDH, ESR, MAKENZIE comp, ANCA, GAME, CA 19-9 all without pertinent abnormality.? CRP H 4.52? Stool studies calprotectin, elastase, lactoferrin WNL EGD 8.06.26 moderate Schatzki ring, Savary dilator 51F; irregular Zline; medium hiatal hernia; short-segment Castillo?s esophagus with low grade dysplasia; gastritis. H.Pylori negative.? OV 07.24. continues with urgent diarrhea three times a week with intermittent bloating. Start colestipol. OV 09.21.22 Continue colestipol, start fiber refer to nutrition ? EGD 2.1623 short-segment Castillo?s, RFA; small hiatal hernia. No specimens. OV 3.. Repeat EGD ? EGD 7.23 Short-segment Castillo?s, RFA; hiatal hernia. No specimens. Contact 05.17.23 with sore throat. Start magic mouthwash OV 8.9.23 denying difficulty with any active symptoms at the moment. He is seeing a photo printer who is recommending avoidance of raw vegetables; however, his has been preparing a lot of salads. Continues with PPI DERIANKRIS PAMELA, is a 67 M who presents to the office today for ROS Const Constitutional: No other (As above) Exam Const General: cooperative, healthy appearing and no acute distress Orientation: alert, awake and oriented x3 HENMT Head: normal to inspection Ears: hearing grossly normal bilaterally, external ears normal, TM's normal bilaterally and EAC's normal Nose: external nose normal, nares normal, septum normal and no nasal discharge Neck Neck: normal visual inspection, full ROM, no lymphadenopathy, no meningeal signs and supple Neck mass: No Thyroid: thyroid normal Lymphatic: no lymphadenopathy noted Chest Chest palpation & inspection: normal inspection of the chest Resp Effort & Inspection: normal respiratory effort and able to speak in complete sentences Cardio Rate: regular rate Pulses: radial pulses present Skin General: no rashes or lesions noted Neuro General: patient alert, patient awake and patient oriented x3 Cognition: normal cognition Speech: speech normal Psych Appearance: grossly normal Mental Status: mental status grossly normal Mood: congruent mood Affect: normal affect Speech and Movement: speech and movement normal Attitude: cooperative Quality Reporting Tobacco Screening ([facility] 138) Smoking Status: Former smoker Assessment and Plan Assessment and Plan (1) Castillo's esophagus with low grade dysplasia: Status: Chronic Plan: He had two ablations with RFA. He will have another ablation in 3 months. (2) Barretts esophagus: Status: Acute Qualifiers: Castillo's esophagus type: with low grade dysplasia Qualified Code(s): K22.710 - Castillo's esophagus with low grade dysplasia Plan: He was identified as having short segment Castillo's esophagus on his recent upper endoscopy. He was Ki-67 positive. He will undergo an upper endoscopy with biopsies and possible ablation of low-grade dysplasia. We will start him on twice a day PPI therapy. Initial gastrin level was 21. We evaluated his diarrhea. We will follow-up to see how his diarrhea changes while he is on this medicine for the next 8 weeks. (3) Irritable bowel syndrome with diarrhea: Status: Chronic Plan: Bowel syndrome with diarrhea. It does not appear to be secondary to hypergastrinemia. However it could be secondary to diet that she is getting from alcohol on a daily basis. We have discussed some diet changes and reducing the amount of sugar that he takes and on a daily basis. I would not change it at this time. I will add colestipol either midday or at night for the next 2 months. (4) Hiatal hernia: Status: Acute Plan: I do not think surgical evaluation at this time. He will need esophageal manometry prior to any evaulation. (5) Chronic bronchitis: Status: Chronic Qualifiers: Chronic bronchitis type: mucopurulent Qualified Code(s): J41.1 - Mucopurulent chronic bronchitis Plan: His chronic bronchitis could be secondary to gastroesophageal reflux disease. PPI twice a day and possibly a prokinetic. He will follow-up in 8 weeks. I have examined the patient and the H&P has been reviewed. There are no clinical changes since date of exam.
--- NOTE | 2023-09-05 09:14 | OP.EGD_ITS ---
Patient Name: Aayush Land Procedure Date: 09/05/2023 8:43 AM Date of : 1955 Age: 67 Procedure: Upper GI endoscopy Indications: Castillo's esophagus with low grade dysplasia Providers: Kyler Chow DO Medicines: Monitored Anesthesia Care Patient Profile: This is a 67 year old male. Refer to note in patient chart for documentation of history and physical. Patient has symptoms of chronic heartburn. Complications: No immediate complications. Procedure: Pre-Anesthesia Assessment: - Prior to the procedure, a History and Physical was performed, and patient medications and allergies were reviewed. The patient is competent. The risks and benefits of the procedure and the sedation options and risks were discussed with the patient. All questions were answered and informed consent was obtained. Patient identification and proposed procedure were verified by the physician in the pre-procedure area. Mental Status Examination: alert and oriented. Airway Examination: normal oropharyngeal airway and neck mobility. Respiratory Examination: clear to auscultation. CV Examination: normal. Prophylactic Antibiotics: The patient does not require prophylactic antibiotics. Prior Anticoagulants: The patient has taken no anticoagulant or antiplatelet agents. ASA Grade Assessment: II - A patient with mild systemic disease. After reviewing the risks and benefits, the patient was deemed in satisfactory condition to undergo the procedure. The anesthesia plan was to use monitored anesthesia care (MAC). Immediately prior to administration of medications, the patient was re-assessed for adequacy to receive sedatives. The heart rate, respiratory rate, oxygen saturations, blood pressure, adequacy of pulmonary ventilation, and response to care were monitored throughout the procedure. The physical status of the patient was re-assessed after the procedure. After obtaining informed consent, the endoscope was passed under direct vision. Throughout the procedure, the patient's blood pressure, pulse, and oxygen saturations were monitored continuously. The Endoscope was introduced through the mouth, and advanced to the second part of duodenum. The upper GI endoscopy was accomplished without difficulty. The patient tolerated the procedure well. Scope In: 8:51:18 AM Scope Out: 9:07:02 AM Total Procedure Duration Time 0 hours 15 minutes 44 seconds Findings: There were esophageal mucosal changes secondary to established short-segment Castillo's disease present in the lower third of the esophagus. The maximum longitudinal extent of these mucosal changes was 3 cm in length. Mucosa was biopsied with a cold forceps for histology in 4 quadrants at intervals of 1 cm in the lower third of the esophagus. One specimen bottle was sent to pathology. Verification of patient identification for the specimen was done. Estimated blood loss was minimal. Focal radiofrequency ablation of Castillo's esophagus was performed. With the endoscope in place, the position and extent of the Castillo's mucosa and the anatomic landmarks including top of gastric folds were noted. Endoscopic visualization identified an ablation site including the entire visible Castillo's segment. The Castillo's mucosa was irrigated with saline. The radiofrequency channel ablation catheter was introduced through the endoscope working channel. Castillo's tissue was targeted. The endoscope with the ablation catheter was advanced to the areas of Castillo's mucosa. The areas included circumferential areas of Castillo's mucosa. The endoscope with the channel ablation catheter was positioned under direct visualization so that the catheter was placed in contact with the surface of the Castillo's mucosa. Energy was applied twice at 12 J/cm2. The channel ablation catheter was then removed through the endoscope working channel, and the ablation catheter was cleaned. The endoscope was left in place. The ablation zone was cleaned of coagulative debris. The ablation catheter was reinserted into the endoscope working channel. A second round of ablation was then performed. Energy was applied twice at 12 J/cm2 to retreat the areas of Castillo's epithelium that had been treated with the first series of ablation. The ablation catheter was removed through the endoscope working channel. The areas of the esophagus where Castillo's mucosa had been ablated were examined. Areas of visible Castillo's esophagus were completely ablated. The endoscope was then removed. A small hiatal hernia was present. The exam of the stomach was otherwise normal. The first portion of the duodenum was normal. Impression: - Esophageal mucosal changes secondary to established short-segment Castillo's disease. Biopsied. Treated with radiofrequency ablation. - Small hiatal hernia. - Normal first portion of the duodenum. Recommendation: - Discharge patient to home. - Resume previous diet. - Continue present medications. - Await pathology results. - Repeat upper endoscopy. Procedure Code(s): --- Professional --- 57404, Esophagogastroduodenoscopy, flexible, transoral; with ablation of tumor(s), polyp(s), or other lesion(s) (includes pre- and post-dilation and guide wire passage, when performed) 53001, 59,51, Esophagogastroduodenoscopy, flexible, transoral; with biopsy, single or multiple CPT copyright 2021 [employer]. All rights reserved. The codes documented in this report are preliminary and upon metal can inspector review may be revised to meet current compliance requirements. Kyler Chow DO 09/05/2023 9:14:08 AM This report has been signed electronically. Number of Addenda: 0 Note Initiated On: 09/05/2023 8:43 AM
--- NOTE | 2023-09-05 09:15 | OP.CCLET_ITS ---
09/05/2023 Bean John MD [address] [place] [address] [place] [address] Re : Upper GI endoscopy procedure for Aayush Land Dear Dr. John This procedure was performed on Tuesday, September 05, 2023. My impressions and recommendations are as follows: Impressions : - Esophageal mucosal changes secondary to established short-segment Castillo's disease. Biopsied. Treated with radiofrequency ablation. - Small hiatal hernia. - Normal first portion of the duodenum. Recommendations : - Discharge patient to home. - Resume previous diet. - Continue present medications. - Await pathology results. - Repeat upper endoscopy. My findings are described in the full procedure note, which is enclosed. If I can be of further assistance, please feel free to contact me at . Sincerely, Kyler Chow, 09/05/2023 9:14:08 AM This report has been signed electronically.
[2023-09-05 09:18] VITALS: BP 100/70; BP 130/88; PULSE 78; RESP 18; TEMP 37.1; O2SAT 92
[2023-09-05 09:20] VITALS: BP 108/79; BP 130/88; PULSE 72; RESP 18; O2SAT 94
[2023-09-05 09:25] VITALS: BP 108/82; BP 130/88; PULSE 68; RESP 18; O2SAT 93
[2023-09-05 09:30] VITALS: BP 114/85; BP 130/88; PULSE 65; RESP 18; TEMP 36.6; O2SAT 94
[2023-09-05 09:51] VITALS: BP 130/88
== END 2023-09-05 10:00 | disposition home or self-care (01) ==
LOC: EN 07:23 → AC 07:24
PROVIDERS: PCP Internal Medicine; Referring Provider Internal Medicine; Visit Provider Internal Medicine Gastroenterology
PROC: 0DJ08ZZ Inspection of Upper Intestinal Tract, Via Natural or Artificial Opening Endoscopic (ICD-10-PCS; CPT 43235; principal; 2023-09-05 08:25)
DX: K22.710 Barrett's esophagus with low grade dysplasia (principal); K44.9 Diaphragmatic hernia without obstruction or gangrene; Z87.891 Personal history of nicotine dependence
CPT/HCPCS: 43239; 43270; 88305; 88313; J7120

== ENCOUNTER 2024-01-09 09:29 | Day surgery (SDC) | payer OTHER, MEDICAID, SELFPAY ==
[2024-01-09] VITALS (7 sets, daily range): BP systolic 105–132; BP diastolic 75–88; PULSE 65–81; RESP 16–17; TEMP 36.4–37.2; O2SAT 95–98; BMI 32.6
[2024-01-09] MEDS: Lactated Ringers 1,000 ML 15 ML IV (10:00)
--- NOTE | 2024-01-09 10:01 | HP.PCM_ITS ---
History and Physical Date of Admission: 01/09/24 67-year-old man presents for follow-up regarding his recent diagnosis of gastroesophageal reflux disease with Castillo's esophagus and low-grade dysplasia. Previous GI Dr. Mejia workup: ? Colonoscopy 11.04.18 without pathologic changes/colitis.? *BGI established 04.26. with loose stools; no medications attempted, working at reducing alcohol intake; marijuana gummies. Biochemical CRP, LDH, ESR, MAKENZIE comp, ANCA, GAME, CA 19-9 all without pertinent abnormality.? CRP H 4.52? Stool studies calprotectin, elastase, lactoferrin WNL EGD 8.06.26 moderate Schatzki ring, Savary dilator 51F; irregular Zline; medium hiatal hernia; short-segment Castillo?s esophagus with low grade dysplasia; gastritis. H.Pylori negative.? OV 9. continues with urgent diarrhea three times a week with intermittent bloating. Start colestipol. OV 11. Continue colestipol, start fiber refer to nutrition ? EGD 2.16.23 short-segment Castillo?s, RFA; small hiatal hernia. No specimens. OV 3..23 Repeat EGD ? EGD 7..23 Short-segment Castillo?s, RFA; hiatal hernia. No specimens. Contact 05.17.23 with sore throat. Start magic mouthwash OV 8.9.23 denying difficulty with any active symptoms at the moment. He is seeing a branch lending manager who is recommending avoidance of raw vegetables; however, his has been preparing a lot of salads. Continues with PPI DERIANKRIS PAMELA, is a 67 M who presents to the office today for ROS Const Constitutional: No other (As above) Exam Const General: cooperative, healthy appearing and no acute distress Orientation: alert, awake and oriented x3 HENMT Head: normal to inspection Ears: hearing grossly normal bilaterally, external ears normal, TM's normal bilaterally and EAC's normal Nose: external nose normal, nares normal, septum normal and no nasal discharge Neck Neck: normal visual inspection, full ROM, no lymphadenopathy, no meningeal signs and supple Neck mass: No Thyroid: thyroid normal Lymphatic: no lymphadenopathy noted Chest Chest palpation & inspection: normal inspection of the chest Resp Effort & Inspection: normal respiratory effort and able to speak in complete sentences Cardio Rate: regular rate Pulses: radial pulses present Skin General: no rashes or lesions noted Neuro General: patient alert, patient awake and patient oriented x3 Cognition: normal cognition Speech: speech normal Psych Appearance: grossly normal Mental Status: mental status grossly normal Mood: congruent mood Affect: normal affect Speech and Movement: speech and movement normal Attitude: cooperative Quality Reporting Tobacco Screening ([facility] 138) Smoking Status: Former smoker Assessment and Plan Assessment and Plan (1) Castillo's esophagus with low grade dysplasia: Status: Chronic Plan: He had two ablations with RFA. He will have another ablation in 3 months. (2) Barretts esophagus: Status: Acute Qualifiers: Castillo's esophagus type: with low grade dysplasia Qualified Code(s): K22.710 - Castillo's esophagus with low grade dysplasia Plan: He was identified as having short segment Castillo's esophagus on his recent upper endoscopy. He was Ki-67 positive. He will undergo an upper endoscopy with biopsies and possible ablation of low-grade dysplasia. We will start him on twice a day PPI therapy. Initial gastrin level was 21. We evaluated his diarrhea. We will follow-up to see how his diarrhea changes while he is on this medicine for the next 8 weeks. (3) Irritable bowel syndrome with diarrhea: Status: Chronic Plan: Bowel syndrome with diarrhea. It does not appear to be secondary to hypergastrinemia. However it could be secondary to diet that she is getting from alcohol on a daily basis. We have discussed some diet changes and reducing the amount of sugar that he takes and on a daily basis. I would not change it at this time. I will add colestipol either midday or at night for the next 2 months. (4) Hiatal hernia: Status: Acute Plan: I do not think surgical evaluation at this time. He will need esophageal manometry prior to any evaulation. (5) Chronic bronchitis: Status: Chronic Qualifiers: Chronic bronchitis type: mucopurulent Qualified Code(s): J41.1 - Mucopurulent chronic bronchitis Plan: His chronic bronchitis could be secondary to gastroesophageal reflux disease. PPI twice a day and possibly a prokinetic. He will follow-up in 8 weeks. I have examined the patient and the H&P has been reviewed. There are no clinical changes since date of exam.
--- NOTE | 2024-01-09 10:45 | EGD_PTH ---
PATHOLOGY RESULTS PATIENT: WILVER SANTIAGO LOC: EN U#:[id number] AGE/SX: 68/M ROOM: RE01/09/[address]: Dr. Kyler Chow DO : 1955 BED: DIS: 01/09/2024 SPEC #: [id number] RECD: 01/09/24 13:03 STATUS: ROBER REAlen #: [id number] ERICA: 01/09/24 10:[address]: Kyler Chow DEPT: SURGICAL PATHOLOGY RECD BY: Tammie Starkey ENTERED: 01/09/24 13:40 SP TYPE: EGD BIOPSY ISMAEL DR: Dr. Bean John MD Tissues: Esophagus, NOS Procedures: Special Stain Group II Surgery Specimen Level IV Alcian Blue/PAS (control) HEADER OPERATION: EGD, biopsy PRE-OP DIAGNOSIS: Castillo's esophagus with low-grade dysplasia, Castillo's esophagus TISSUE SUBMITTED: Distal esophagus biopsy MICROSCOPIC DIAGNOSIS Distal esophagus, biopsy: Fragments of gastroesophageal mucosa with moderate chronic inflammation. Intestinal metaplasia (goblet cell metaplasia) not identified. See comment. DARIN:cornelio 01/10/2024 COMMENT Alcian blue/PAS stain with matched control is used in the evaluation of the specimen. Please make reference to previous specimens ([id number]), distal esophagus, biopsy with diagnosis of fragments of gastroesophageal mucosa with chronic inflammation and intestinal metaplasia (goblet cell metaplasia) is not identified and ([id number]) distal esophagus, biopsy with diagnosis of gastroesophageal junctional mucosa with mild chronic inflammation, focal changes of reflux and intestinal metaplasia consistent with Castillo's esophagus and consistent with focal low-grade dysplasia. Correlation with clinical, endoscopic findings and appropriate follow up are necessary. MICROSCOPIC DESCRIPTION Slides are reviewed. GROSS DESCRIPTION Received in fixative is one container labeled with the patient's name and designated distal esophagus biopsy. The specimen consists of two irregular fragments of light raya soft tissue that in aggregate measure 0.6 x 0.3 x 0.1 cm. The specimen is totally submitted in one cassette. / DARIN:cornelio 01/09/2024 TC:3 CPT: 52103, 81637
--- NOTE | 2024-01-09 11:51 | OP.CCLET_ITS ---
01/09/2024 Bean John MD [address] [place] [address] [place] [address] Re : Upper GI endoscopy procedure for Aayush Land Dear Dr. John This procedure was performed on Tuesday, January 09, 2024. My impressions and recommendations are as follows: Impressions : - Z-line irregular, 39 cm from the incisors. Biopsied. - Normal stomach. - Normal first portion of the duodenum. Recommendations : - Discharge patient to home. - Resume previous diet. - Continue present medications. - Await pathology results. - Repeat upper endoscopy in 1 year for surveillance. My findings are described in the full procedure note, which is enclosed. If I can be of further assistance, please feel free to contact me at . Sincerely, Kyler Friend, 01/09/2024 11:50:40 AM This report has been signed electronically.
--- NOTE | 2024-01-09 11:51 | OP.EGD_ITS ---
Patient Name: Aayush Land Procedure Date: 01/09/2024 11:34 AM Date of : 1955 Age: 68 Procedure: Upper GI endoscopy Indications: Castillo's esophagus with low grade dysplasia Providers: Kyler Chow DO Referring MD: Kyler Chow DO Medicines: Monitored Anesthesia Care Patient Profile: This is a 68 year old male. Refer to note in patient chart for documentation of history and physical. Patient has symptoms of chronic heartburn. His most recent EGD for Castillo's ablation was within the past three months. Complications: No immediate complications. Procedure: Pre-Anesthesia Assessment: - Prior to the procedure, a History and Physical was performed, and patient medications and allergies were reviewed. The patient is competent. The risks and benefits of the procedure and the sedation options and risks were discussed with the patient. All questions were answered and informed consent was obtained. Patient identification and proposed procedure were verified by the physician in the pre-procedure area. Mental Status Examination: alert and oriented. Airway Examination: normal oropharyngeal airway and neck mobility. Respiratory Examination: clear to auscultation. CV Examination: normal. Prophylactic Antibiotics: The patient does not require prophylactic antibiotics. Prior Anticoagulants: The patient has taken no anticoagulant or antiplatelet agents. ASA Grade Assessment: II - A patient with mild systemic disease. After reviewing the risks and benefits, the patient was deemed in satisfactory condition to undergo the procedure. The anesthesia plan was to use monitored anesthesia care (MAC). Immediately prior to administration of medications, the patient was re-assessed for adequacy to receive sedatives. The heart rate, respiratory rate, oxygen saturations, blood pressure, adequacy of pulmonary ventilation, and response to care were monitored throughout the procedure. The physical status of the patient was re-assessed after the procedure. After obtaining informed consent, the endoscope was passed under direct vision. Throughout the procedure, the patient's blood pressure, pulse, and oxygen saturations were monitored continuously. The Endoscope was introduced through the mouth, and advanced to the second part of duodenum. The upper GI endoscopy was accomplished without difficulty. The patient tolerated the procedure well. Scope In: 11:39:07 AM Scope Out: 11:42:07 AM Total Procedure Duration Time 0 hours 3 minutes 0 seconds Findings: The Z-line was irregular and was found 39 cm from the incisors. Biopsies were taken with a cold forceps for histology. Verification of patient identification for the specimen was done. Estimated blood loss was minimal. The entire examined stomach was normal. The first portion of the duodenum was normal. Impression: - Z-line irregular, 39 cm from the incisors. Biopsied. - Normal stomach. - Normal first portion of the duodenum. Recommendation: - Discharge patient to home. - Resume previous diet. - Continue present medications. - Await pathology results. - Repeat upper endoscopy in 1 year for surveillance. Procedure Code(s): --- Professional --- 69885, Esophagogastroduodenoscopy, flexible, transoral; with biopsy, single or multiple CPT copyright 2021 [employer]. All rights reserved. The codes documented in this report are preliminary and upon bridal consultant review may be revised to meet current compliance requirements. Kyler Chow DO 01/09/2024 11:50:40 AM This report has been signed electronically. Number of Addenda: 0 Note Initiated On: 01/09/2024 11:34 AM
== END 2024-01-09 12:24 | disposition home or self-care (01) ==
LOC: EN 09:30 → AC 09:31
PROVIDERS: PCP Internal Medicine; Referring Provider Internal Medicine Gastroenterology; Visit Provider Internal Medicine Gastroenterology
PROC: (CPT 43257; principal; 2024-01-09 10:40)
DX: K22.710 Barrett's esophagus with low grade dysplasia (principal); J41.1 Mucopurulent chronic bronchitis; K58.0 Irritable bowel syndrome with diarrhea; K44.9 Diaphragmatic hernia without obstruction or gangrene; K22.89 Other specified disease of esophagus
CPT/HCPCS: 43239; 88305; 88313; J7120; J2405

== ENCOUNTER → 2024-02-04 | Outpatient (CLI) | payer OTHER, SELFPAY ==
[2024-02-04 12:22] LABS: Absolute Lymphocyte Count 2.01 X10^3/uL (0.83-4.51); Absolute Neutrophil Count 3.4 X10^3/uL (2.0-7.7); Basophil# 0.09 X10^3/uL; Basophil% 1.3 % (0-1); Eosinophil# 0.52 X10^3/uL; Eosinophils% 7.5 % (0-5); Hematocrit 46.4 % (40-54); Hemoglobin 15.3 g/dL (13.0-16.5); Lymphocyte # 2.01 X10^3/ul (0.83-4.51); Lymphocyte % 29.1 % (19-41); Mean Corpuscular Hgb 30.9 pg (27.0-32.0); Mean Corpuscular Volume 93.7 fL (80-94); Mean Platelet Vol. 9.2 fl (6.2-12.0); NRBC Flagged by Analyzer 0 % (0-5); Neutrophil # 3.35 X10^3/uL (2.7-7.7); Neutrophil % 48.7 % (47-70); Platelet Count 207 K/mm3 (150-450); RBC Distribution Width CV 13.3 % (11.6-14.6); RBC Distribution Width SD 46.3 fl (35.1-43.9); Red Blood Count 4.95 M/mm3 (4.6-6.2); White Blood Count 6.9 K/mm3 (4.4-11.0)
[2024-02-04 13:23] LABS: ALB/GLOB Ratio 1.1 RATIO (0.9-2.4); AST(SGOT) 26 U/L (15-37); Alanine Aminotransfer ALT/SGPT 32 U/L (16-61); Albumin, Serum 3.7 g/dL (3.2-5.0); Alkaline Phosphatase 57 U/L (45-117); Anion Gap 3 (5-15); BUN 15 mg/dL (7-18); BUN/Creat Ratio 15.2 RATIO (10-20); Calcium,Total 9.3 mg/dL (8.5-10.1); Chloride 107 mmol/L (98-107); Cholesterol 217 mg/dL (200); Creatinine, Serum 0.99 mg/dL (0.70-1.30); EST Glomerular Filtration Rate 80 mL/min (>60); Est Glom Filt Rate - Afr Amer 97 mL/min (>60); Globulin 3.3 g/dL (2.2-4.2); Glucose 93 mg/dL (74-106); High Density Lipoprotein 89 mg/dL; Potassium 4.2 mmol/L (3.5-5.1); Sodium Level 140 mmol/L (136-145); Thyroid Stim Hormone (TSH) 3.62 uIU/mL (0.358-3.74); Triglycerides 117 mg/dL; Uric Acid 6.4 mg/dL (3.5-7.2); Very Low Density Lipoprotein 23 mg/dL (5-40)
== END | disposition home or self-care (01) ==
LOC: BIMLAB 11:30
PROVIDERS: PCP Internal Medicine; Referring Provider Internal Medicine; Visit Provider Internal Medicine
DX: E03.9 Hypothyroidism, unspecified (principal); F41.9 Anxiety disorder, unspecified; F32.9 Major depressive disorder, single episode, unspecified; M10.9 Gout, unspecified
CPT/HCPCS: 36415; 80053; 80061; 84443; 84550; 85025

== ENCOUNTER → 2024-02-06 | Outpatient (CLI) | payer OTHER, SELFPAY ==
[2024-02-06 12:41] LABS: PSA,Total - Annual Screen 3.22 ng/mL (0.00-4.00)
[2024-02-12 10:08] LABS: Testosterone, Free 7.53 ng/dL (5.00-21.00); Testosterone, Total 301 ng/dL (264-916)
== END | disposition home or self-care (01) ==
LOC: BIMLAB 08:23
PROVIDERS: PCP Internal Medicine; Visit Provider Internal Medicine
DX: N52.9 Male erectile dysfunction, unspecified (principal)
CPT/HCPCS: 36415; 84153; 84402; 84403; G0103

== ENCOUNTER 2024-06-16 13:20 | Emergency (ER) | payer OTHER, MEDICAID, SELFPAY ==
[2024-06-16 13:20] VITALS: BP 105/93; PULSE 100; RESP 19; TEMP 36; O2SAT 97; BMI 32.3
--- NOTE | 2024-06-16 13:28 | RAD_ITS ---
STUDY: X-RAY - PELVIS AND LEFT HIP REASON FOR EXAM: Male, 68 years old. Left hip pain following a fall. TECHNIQUE: 3 views of the pelvis and hip. COMPARISON: None. FINDINGS: There is a non-specific bowel gas pattern. Normal visualized soft tissue structures. Normal bilateral iliac wings, sacroiliac joints and visualized sacrum. Normal bilateral superior and inferior pubic rami. Normal pubic symphysis. Normal bilateral ischial tuberosities. Normal visualized femoral head. Normal acetabulum. Normal hip joint. RAD/HIP, UNI W/ Pelvis 2-3 Views IMPRESSION: Normal x-ray examination of the pelvis and hip. Electronically Signed: Erasto Grier MD at 13:43 EDT ,
== END 2024-06-16 15:30 | disposition left against medical advice (07) ==
LOC: ED 15:29
PROVIDERS: PCP Internal Medicine
DX: Z53.21 Procedure and treatment not carried out due to patient leaving prior to being seen by health care provider (principal)
CPT/HCPCS: 73502

== ENCOUNTER → 2024-06-30 | Outpatient (CLI) | payer OTHER, MEDICAID, SELFPAY ==
--- NOTE | 2024-06-30 08:02 | CT_ITS ---
STUDY: CT ABDOMEN AND PELVIS WITH CONTRAST REASON FOR EXAM: Male, 68 years old. Ileus RADIATION DOSAGE (If Supplied By Facility): CTDIvol = ( 32.15 ) mGy, DLP = ( 1141.12 ) mGycm TECHNIQUE: Transaxial images were obtained from the dome of the diaphragm to the symphysis pubis with oral contrast. Oral and amp;amp; IV Readi-CAT and amp;amp; 100mL Isovue-300 was administered. Sagittal and coronal images were reconstructed. Individualized dose optimization techniques were used for this CT. COMPARISON: None. FINDINGS: The visualized lung bases are unremarkable. The visualized portions of the heart are within normal limits. There is decreased attenuation of the liver consistent with steatosis. There are scattered small cysts in the left lobe of the liver. Normal gallbladder and extrahepatic biliary system. Normal spleen. Normal pancreas. Normal bilateral adrenal glands. Normal right kidney. Normal left kidney. Incidental note is made of a left retroaortic renal vein. Normal visualized stomach. Normal small intestine. Mild degree of thickening of the rectosigmoid colon. Early colitis should be ruled out. The appendix is visualized and appears normal. There is scattered atherosclerotic calcification of the abdominal aorta, without a demonstrated aneurysm. Normal inferior vena cava. Normal retroperitoneum. Normal urinary bladder. Small benign-appearing inguinal lymph nodes. Normal abdominal wall. There are degenerative changes of the visualized lumbar spine. CT/Abdomen/Pelvis WITH Contrast IMPRESSION: Diffuse fatty infiltration of the liver. Small hepatic cysts. Findings suggestive of a mild inflammatory change involving the rectosigmoid colon. Clinical correlation recommended. Electronically Signed: Erasto Grier MD at 14:42 EDT ,
[2024-06-30 08:30] LABS: CREATININE FINGERSTICK < 1.0 mg/dL (0.70-1.30); EGFR FINGERSTICK > 60.0000 mL/min (>60)
== END | disposition home or self-care (01) ==
PROVIDERS: PCP Internal Medicine; Referring Provider Internal Medicine Gastroenterology; Visit Provider Internal Medicine Gastroenterology
DX: K56.7 Ileus, unspecified (principal)
CPT/HCPCS: 74177

== ENCOUNTER → 2024-07-09 | Outpatient (CLI) | payer OTHER, SELFPAY ==
[2024-07-09 12:58] LABS: Absolute Lymphocyte Count 1.63 X10^3/uL (0.83-4.51); Absolute Neutrophil Count 3.9 X10^3/uL (2.0-7.7); Basophil# 0.08 X10^3/uL; Basophil% 1.2 % (0-1); Eosinophil# 0.34 X10^3/uL; Hematocrit 45.8 % (40-54); Hemoglobin 15.1 g/dL (13.0-16.5); Lymphocyte # 1.63 X10^3/ul (0.83-4.51); Lymphocyte % 23.8 % (19-41); Mean Corpuscular Hgb 31.1 pg (27.0-32.0); Mean Corpuscular Volume 94.2 fL (80-94); Mean Platelet Vol. 9.4 fl (6.2-12.0); Monocyte# 0.88 X10^3/uL; Monocyte% 12.9 % (0-10); NRBC Flagged by Analyzer 0 % (0-5); Platelet Count 214 K/mm3 (150-450); RBC Distribution Width CV 13.1 % (11.6-14.6); RBC Distribution Width SD 45.2 fl (35.1-43.9); Red Blood Count 4.86 M/mm3 (4.6-6.2); White Blood Count 6.8 K/mm3 (4.4-11.0)
== END | disposition home or self-care (01) ==
PROVIDERS: PCP Internal Medicine; Referring Provider Nurse Practitioner Acute Care; Visit Provider Nurse Practitioner Acute Care
DX: J45.50 Severe persistent asthma, uncomplicated (principal)
CPT/HCPCS: 36415; 85025

== ENCOUNTER 2024-07-29 05:21 | Day surgery (SDC) | payer OTHER, SELFPAY ==
[2024-07-29] VITALS (7 sets, daily range): BP systolic 107–127; BP diastolic 66–93; PULSE 65–82; RESP 16–20; TEMP 36.4–37.4; O2SAT 97–99; BMI 43.3
--- NOTE | 2024-07-29 | IMM_PTH ---
PATIENT: WILVER SANTIAGO LOC: EN U#:[id number] AGE/SX: 68/M ROOM: RE07/29/[address]: Dr. Kyler Chow DO : 1955 BED: DIS: 07/29/2024 SPEC #: [id number] RECD: 07/30/24 13:48 STATUS: ROBER REQ #: [id number] ERICA: 07/29/24 00:[address]: Kyler Chow DEPT: IMMUNOHISTOCHEMISTRY RECD BY: Polo Vaz ENTERED: 07/30/24 13:48 SP TYPE: IMMUNO OT DR: Dr. Bean John MD Tissues: Colon, NOS Procedures: CD45 (initial) PHYSICIAN & INSTITUTION [place] [address] SPECIMEN INFORMATION: Tissue Source: Random colon biopsy Clinical Info: Castillo's esophagus with low grade dysphagia, irritable bowel syndrome with diarrhea, hiatal hernia Specimen Number: [id number] CPT code: 01722 METHODOLOGY: Deparaffinized sections of prefer/formalin-fixed tissue or PAP/DQ stained slides are incubated with monoclonal/polyclonal antibodies/oligonucleotide probes. Localization is made via biotin free immunoperoxidase method. Appropriate controls are performed and reacted as expected. Results on target cell population are indicated in the following table: RESULTS: ANTIBODY / CLONE RESULT CD45 (RP2/18) Negative These tests were developed and their performance characteristics determined by [facility]. They may not have been cleared or approved by the U.S. Food and Drug Administration. The FDA has determined that such clearance or approval is not necessary. The above immunohistochemical/dualISH markers are ordered and reviewed by the Pathologist. INTERPRETATION: Colon, random biopsy: No definite evidence of colitis. AM 08/01/2024
[2024-07-29] MEDS: Lactated Ringers 1,000 ML 15 ML IV (05:57)
--- NOTE | 2024-07-29 06:30 | COLBX_PTH ---
PATIENT: WILVER SANTIAGO LOC: EN U#:[id number] AGE/SX: 68/M ROOM: RE07/29/[address]: Dr. Kyler Chow DO : 1955 BED: DIS: 07/29/2024 SPEC #: [id number] RECD: 07/29/24 12:16 STATUS: ROBER MEGHAN #: [id number] ERICA: 07/29/24 06:[address]: Kyler Chow DEPT: SURGICAL PATHOLOGY RECD BY: Wellington Castelan ENTERED: 07/29/24 13:04 SP TYPE: COLON BX OT DR: Dr. Bean John MD Tissues: COLON BIOPSY Procedures: Trichrome (control) Special Stain Group I Surgery Specimen Level IV HEADER OPERATION: Colonoscopy with biopsy PRE-OP DIAGNOSIS: Castillo's esophagus with low grade dysphagia, irritable bowel syndrome with diarrhea, hiatal hernia TISSUE SUBMITTED: Random colon biopsy MICROSCOPIC DIAGNOSIS Colon, random biopsy: Mucosal denudation. No definitive evidence of microscopic colitis. See comment. 07/30/2024 COMMENT Trichrome stain with matched control was used in the evaluation of this case. Immunohistochemistry ([id number]) supports the above diagnosis and shows focally increased intra epithelial lymphocytes. Case has been reviewed in consultation with Dr. Chavez who concurs with the above diagnosis. IDC:DARIN MICROSCOPIC DESCRIPTION Slides are reviewed. GROSS DESCRIPTION Received in fixative is one container labeled with the patient's name and designated Random colon biopsy. The specimen consists of multiple irregular fragments of light raya soft tissue that in aggregate measure 2.0 x 0.5 x 0.1 cm. The specimen is totally submitted in one cassette. 07/29/2024 TC:3 CPT:67464,57175
--- NOTE | 2024-07-29 06:35 | PRE.ANES_ITS ---
ASA Classification* ASA Classification ASA Classification: 3 Assessment & Plan Anesthesia* Anesthesia Assessment Anesthesia Assessment: Discussed sedation and/or anesthesia options, risks, benefits, and alternatives with patient/parents/legal guardian/POA. Questions invited. The patient/parents/legal guardian/POA seems to understand and agrees to proceed with anesthesia plan. Reviewed the physical assessment, medical history, allergy history and patient home medications list prior to surgery/procedure/anesthetic and documented any changes. Performed airway and anesthesia risk assessments. Anesthesia Type Anesthesia Type: MAC History Source History Obtained from:: Patient and Chart Anesthesia Focused Assessment* Temperature: 97.6 F Pulse Rate: 73 Blood Pressure: 127/93 Respiratory Rate: 16 Pulse Ox: 98 Airway Assessment Mouth opens: >3 cm Mallampati Score: II Neck Range of motion (ROM): Full ROM Focused Labs Anesthesia Preop lab: CBC WBC 6.8 K/mm3 (4.4-11.0) 07/09/24 11:49 RBC 4.86 M/mm3 (4.6-6.2) 07/09/24 11:49 Hgb 15.1 g/dL (13.0-16.5) 07/09/24 11:49 Hct 45.8 % (40-54) 07/09/24 11:49 Plt Count 214 K/mm3 (150-450) 07/09/24 11:49 CHEMISTRY Potassium 4.2 mmol/L (3.5-5.1) 02/04/24 11:30 Sodium 140 mmol/L (136-145) 02/04/24 11:30 BUN 15 mg/dL (7-18) 02/04/24 11:30 Creatinine 0.99 mg/dL (0.70-1.30) 02/04/24 11:30 Glucose 93 mg/dL (74-106) 02/04/24 11:30 TSH 3.62 uIU/mL (0.358-3.74) 02/04/24 11:30 COAG Pre-Assessment Diagnosis/Proposed Procedure Planned Operative Procedure(s): CSCOPE Anesthesia History Anesthesia History - security assistant: Anesthesia History - security assistant Hx Hospitalization No 07/24/24 11:26 Any Problems With Anesthesia No 07/24/24 11:26 Cholinesterase deficiency No 07/24/24 11:26 You/Your Family Experience No 07/24/24 11:26 fever (hyperthermia) with Relationship Recent Exposure to Contagious No 07/29/24 05:55 Disease Does patient have nerve No 07/24/24 11:26 stimulator Patient instructed to have device shut off --Does patient have Pacemaker No 07/29/24 05:55 or ICD? When Was Last Pacemaker Check QUESTION #4 FULL TEXT: You/Your Family Experience fever (hyperthermia) with Anesthesia Last Oral Intake Last Oral intake: Last Oral Intake NPO since Meds taken in AM with sips of water? Meds patient instructed to take am of surgery PONV PONV - security assistant: PONV - security assistant Female No 07/24/24 11:26 HX of Motion Sickness No 07/24/24 11:26 HX of N/V After Surgery No 07/24/24 11:26 Non-Smoker Yes 07/24/24 11:26 Duration of Surgery greater No 07/24/24 11:26 than 60 minutes Number of Risk Factors 1 07/24/24 11:26 PONV Score Low Risk 07/24/24 11:26 Height & Weight Height & Weight: Anesthesia: Height & Weight Height 5 ft 1 in 07/29/24 05:55 Weight: 104 kg 07/29/24 05:55 Body Mass Index (BMI) 43.3 07/29/24 05:55 Respiratory Assessment Respiratory Assessment - security assistant: Respiratory Tract Infection Hx - security assistant Hx Respiratory Tract Infection No 07/24/24 11:26 STOP Sleep Apnea STOP Sleep Apnea - security assistant: STOP Sleep Apnea - security assistant Hx Hypertension No 07/24/24 11:26 Hx Sleep Apnea No 07/24/24 11:26 CPAP BIPAP Do you snore loudly (louder Yes 07/24/24 11:26 than talking or can be heard Do you often feel tired/ No 07/24/24 11:26 fatigued/ sleepy during daytime? Has anyone observed you stop No 07/24/24 11:26 breathing during sleep? STOP Results Negative 07/24/24 11:26 QUESTION #5 FULL TEXT : Do you snore loudly (louder than talking or can be heard through closed doors)? Tobacco Use History Tobacco Use History - security assistant: Tobacco Use History - security assistant Tobacco Use Smoking Status Former smoker 07/24/24 11:26 Hx Tobacco Use No 07/24/24 11:26 Years Smoking Packs Smoked per Day Smoking Cessation Date was No - quit smoking greater 07/24/24 11:26 within the last 15 years than 15 years ago Hx Smoking Cessation Date Hx Smoking Cessation No 07/24/24 11:26 Counseling Hematologic Medial History Hematologic Hx - security assistant: Hematologic Medical Hx - skein washer Hx of Blood Transfusion No 07/24/24 11:26 Hx of Transfusion in last 3 No 07/24/24 11:26 Months Date of Last Transfusion (if within last 3 months) Ever experience any problems No 07/24/24 11:26 with transfusion(s)? Specify any problems Hx of Preganancy in last 3 N/A 07/24/24 11:26 Months Nurse Filling Out Transfusion DSCHRIBER 07/24/24 11:26 & Questions: Date: 07/24/24 07/24/24 11:26 Time: 11:27 07/24/24 11:26 Patient unable to answer at this time (ie. confused, unrespo /Reproduction History /Reproductive History - security assistant: /Reproductive Hx- security assistant Hx Now No 07/24/24 11:26 Gestational Age (in weeks): EDC: Hx Hx Para Hx Section SAB No 07/24/24 11:26 Active Medications Active Medications: Current Medications Generic Name Dose Route Start Last Admin Trade Name Freq PRN Reason Stop Dose Admin Lactated Ringer's 1,000 mls @ 15 mls/hr 07/29/24 05:45 07/29/24 05:57 IV 15 mls/hr .Q48H SILVIA Administration PFSH Medical History Erectile dysfunction COVID-19 Acute pharyngitis, unspecified Wears contact lenses Wears glasses History of Clostridium difficile infection Anxiety Alcohol use Thyroid disease History of hiatal hernia Gastric reflux Former smoker Asthma COPD (chronic obstructive pulmonary disease) Marijuana use Diarrhea Dry mouth Preventative health care Alcohol use Flu vaccine need Tinnitus Gout Hypothyroidism Depression Asthma COPD (chronic obstructive pulmonary disease) Home Medications ?Medication ?Instructions ?Recorded ?Last Taken ?Type albuterol sulfate 0.63 mg/3 mL 0.63 mg (3 mL) inhalation Q4H PRN 03/25/21 Unknown Rx solution for nebulization shortness of breath or wheezing #90 mL PEP device #1 ea 08/08/21 Unknown Rx colchicine 0.6 mg tablet 0.6 mg PO BID PRN gout 12/07/21 Unknown History thiamine HCl (vitamin B1) 100 mg 100 mg PO DAILY #90 tabs 12/08/21 Unknown Rx tablet fexofenadine 180 mg tablet 180 mg PO DAILY 06/09/22 Unknown History (Selam Allergy) azelastine 137 mcg-fluticasone 50 1 spray intranasal BID #3 device 07/30/23 Unknown Rx mcg/spray nasal spray (Dymista) allopurinol 100 mg tablet 100 mg PO DAILY #90 tabs 08/06/23 Unknown Rx quetiapine 25 mg tablet (Seroquel) 25 mg PO QHS PRN Sleep #90 tabs 08/06/23 Unknown Rx sertraline 100 mg tablet 100 mg PO DAILY 08/29/23 Unknown History levothyroxine 88 mcg tablet 88 mcg PO DAILY #90 tabs 04/07/24 07/29/24 Rx (Synthroid) fluticasone furoate 200 1 inh inhalation DAILY #1 device 05/19/24 Unknown Rx mcg-vilanterol 25 mcg/dose inhalation powder (Breo Ellipta) albuterol 90 mcg/actuation aerosol 90 mcg inhalation PRN SOB 07/24/24 Unknown History inhaler pantoprazole 40 mg tablet,delayed 40 mg PO BID 07/24/24 Unknown History release Allergy/AdvReac Type Severity Reaction Status Date / Time ampicillin Allergy Hives Verified 07/29/24 06:14 Family History Mother Anxiety and depression Thyroid disorder Cancer Father Heart disease Cancer Sister CVA (cerebral vascular accident) Surgical History Hx of hernia repair Hx of colonoscopy History of esophagogastroduodenoscopy H/O hernia repair Social History Smoking Status: Former smoker how long ago did patient quit smokin alcohol intake: current alcohol intake frequency: 0-2 drinks per day Alcohol type: beer and hard liquor details: 6 ounces of hard liquor daily substance use type: does not use what type of physical activity do you participate in: walking and weight training frequency: 3-4 times per week Review of Systems (Anesthesia) ROS Narrative System reviewed and no additional complaints, except as documented.
--- NOTE | 2024-07-29 06:39 | HP.PCM_ITS ---
History and Physical Date of Admission: 07/29/24 WILVER SANTIAGO, is a 68 M who presents to the office today for GI Dr. Mejia workup: ? Colonoscopy 11.04.18 without pathologic changes/colitis.? *BGI established 04.26.22 with loose stools; no medications attempted, working at reducing alcohol intake; marijuana gummies. Biochemical CRP, LDH, ESR, MAKENZIE comp, ANCA, GAME, CA 19-9 all without pertinent abnormality.? CRP H 4.52? 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 H.Pylori negative.? OV 07.24.22 continues with urgent diarrhea three times a week with intermittent bloating. Start colestipol. OV 09.21.22 Continue colestipol, start fiber refer to nutrition ? EGD 12.21.22 short-segment Castillo?s, RFA; small hiatal hernia. No specimens. OV 3 Repeat EGD ? EGD 05.10.23 Short-segment Castillo?s, RFA; hiatal hernia. No specimens. Contact 05.17.23 with sore throat. Start magic mouthwash OV 8.07.28 denying difficulty with any active symptoms at the moment. He is seeing a live truck operator who is recommending avoidance of raw vegetables; however, his has been preparing a lot of salads. Continues with PPI BID ? EGD 09.05.23 short-segment Castillo?s, RFA; small hiatal hernia. Metaplasia neg ? EGD 01.09.24 irregular Zline 39cm. metaplasia neg. OV 01.18.24 reports he is doing well without current symptoms; PPI use continues ROS Const Constitutional: No body ache, chills, excessive sweating, fatigue, fever(s), frequent falls, headache(s), snoring, weakness, sleep problems or change in appetite Eyes Eyes: No blurry vision, change in vision, dry eyes, floaters or Light sensitivity ENT ENT: No abnormal hearing, ear or mastoid pain, tinnitus, balance problems, nosebleed/epistaxis, nasal congestion, nasal discharge, headache(s), neck pain or sore throat Resp Respiratory: No cough, excessive phlegm production, pain on inspiration, shortness of breath, snoring or wheezing Cardio Cardiology: No chest pain at rest, chest pain with exertion, excessive sweating, shortness of breath, dyspnea on exertion, lightheadedness, orthopnea or palpitations Gastro GI: No abdominal pain, change in bowel habits, constipation, cramping, diarrhea or nausea/dyspepsia Genitourinary Male: No burning urination, painful urination, urinary incontinence, urinary frequency, suprapubic fullness or side pain Musc Musculoskeletal: No abnormal gait, joint pain, back pain, limited range of motion, muscle weakness, neck pain or numbness Skin Skin: No dry skin, redness, lesions, itchy eyes, rash or wounds Neuro Neurology: No abnormal gait, abnormal hearing, behavioral changes, confusion, weakness, frequent falls, headache(s), memory loss or numbness Psych Psychiatric: No anxiety, No behavioral changes, No change in appetite, No confusion, No depression, No memory loss, No panic attacks and No Thoughts of harming yourself/Others Endo Endocrine: No cold intolerance, excessive sweating, fatigue, flushing, heat intolerance, increased thirst/drinking or increased hunger Aller/Imm Allergy/Immunologic: No itchy eyes, seasonal allergy symptoms, hives or wheezing Jam/Lymp Hematologic/Lymphatic: No easy bleeding, easy bruising or enlarged lymph nodes Exam Const General: cooperative, comfortable and no acute distress Orientation: alert, awake and oriented x3 [facility] Head: normal to inspection, normocephalic and atraumatic Ears: hearing grossly normal bilaterally Resp Effort & Inspection: normal respiratory effort and able to speak in complete sentences Auscultation: Bilateral: Clear to Auscultation Cardio Rate: regular rate Rhythm: regular rhythm Heart Sounds: S1 normal and S2 normal GI Palpation: soft (Non tender, no palpable organomegaly) Neuro General: patient alert, patient awake, patient oriented x3, moves all extremities and CN's II-XI intact bilaterally Extrem General: no clubbing, cyanosis or edema Psych Appearance: grossly normal Mental Status: mental status grossly normal Mood: congruent mood Affect: normal affect Quality Reporting Tobacco Screening ([facility] 138) Smoking Status: Former smoker Assessment and Plan Assessment and Plan (1) 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 His last biopies displayed Fragments of gastroesophageal mucosa with moderate chronic inflammation. Intestinal metaplasia (goblet cell metaplasia) not identified. He will have a repeat egd in one year. (2) Irritable bowel syndrome with diarrhea: Status: Chronic Plan: Bowel syndrome with diarrhea. It does not appear to be secondary to hypergastrinemia. However it could be secondary to diet that she is getting from alcohol on a daily basis. We have discussed some diet changes and reducing the amount of sugar that he takes and on a daily basis. I would not change it at this time. I will add colestipol either midday or at night for the next 2 months. (3) Hiatal hernia: Status: Chronic Plan: I do not think surgical evaluation at this time. He will need esophageal manometry prior to any evaulation. (4) Barretts esophagus: Status: Acute Qualifiers: Castillo's esophagus type: with low grade dysplasia Qualified Code(s): K22.710 - Castillo's esophagus with low grade dysplasia Plan: He was identified as having short segment Castillo's esophagus on his recent upper endoscopy. He was Ki-67 positive. He will go on a surveillance program of once a year endoscopy we will start him on twice a day PPI therapy. Initial gastrin level was 21. We evaluated his diarrhea. We will follow-up to see how his diarrhea changes while he is on this medicine for the next 8 weeks. (5) Chronic bronchitis: Status: Chronic Qualifiers: Chronic bronchitis type: mucopurulent Qualified Code(s): J41.1 - Mucopurulent chronic bronchitis Plan: His chronic bronchitis could be secondary to gastroesophageal reflux disease. PPI twice a day and possibly a prokinetic. He will follow-up in 8 weeks. I have examined the patient and the H&P has been reviewed. There are no clinical changes since date of exam.
--- NOTE | 2024-07-29 07:29 | PCM.POST.ANE ---
Anesthesia: Postop Eval I Current Vital Signs Temperature: 99.3 F Pulse Rate: 77 Blood Pressure: 107/67 Respiratory Rate: 18 Pulse Ox: 99 Oxygen Delivery Method: Room Air Assessment Airway patent: Yes Spontaneous unlabored respirations: Yes Mental status: Awake and Calm nausea: No Vomiting: No Anesthesia Complication: Yes Anesthesia Complication Comment:: vagal induced bradycardia Fluid Hydration Crystalloid volume administer (ml): 800 Total IV fluid infused: 800 Progress Note Anesthesia document: Postop Eval 1 completed: Yes
--- NOTE | 2024-07-29 07:30 | OP.COLON_ITS ---
Patient Name: Aayush Land Procedure Date: 07/29/2024 6:05 AM Date of : 1955 Age: 68 Procedure: Colonoscopy Indications: Abdominal pain in the left lower quadrant, Clinically significant diarrhea of unexplained origin Providers: Kyler Chow DO Medicines: Monitored Anesthesia Care Patient Profile: This is a 68 year old male. Refer to note in patient chart for documentation of history and physical. Last Colonoscopy: date unknown. Unable to locate last colonoscopy report. Complications: No immediate complications. Procedure: Pre-Anesthesia Assessment: - Prior to the procedure, a History and Physical was performed, and patient medications and allergies were reviewed. The patient is competent. The risks and benefits of the procedure and the sedation options and risks were discussed with the patient. All questions were answered and informed consent was obtained. Patient identification and proposed procedure were verified by the physician. Mental Status Examination: alert and oriented. Airway Examination: normal oropharyngeal airway and neck mobility. Respiratory Examination: clear to auscultation. CV Examination: normal. Prophylactic Antibiotics: The patient does not require prophylactic antibiotics. Prior Anticoagulants: The patient has taken no anticoagulant or antiplatelet agents except for NSAID medication. ASA Grade Assessment: II - A patient with mild systemic disease. After reviewing the risks and benefits, the patient was deemed in satisfactory condition to undergo the procedure. The anesthesia plan was to use monitored anesthesia care (MAC). Immediately prior to administration of medications, the patient was re-assessed for adequacy to receive sedatives. The heart rate, respiratory rate, oxygen saturations, blood pressure, adequacy of pulmonary ventilation, and response to care were monitored throughout the procedure. The physical status of the patient was re-assessed after the procedure. After I obtained informed consent, the scope was passed under direct vision. Throughout the procedure, the patient's blood pressure, pulse, and oxygen saturations were monitored continuously. The colonoscope was introduced through the anus and advanced to the terminal ileum. The colonoscopy was technically difficult and complex due to restricted mobility of the colon. Successful completion of the procedure was aided by straightening and shortening the scope to obtain bowel loop reduction. The patient tolerated the procedure well. The quality of the bowel preparation was adequate. The terminal ileum, ileocecal valve, appendiceal orifice, and rectum were photographed. Scope In: 6:45:33 AM Scope Withdrawal Time 0 hours 7 minutes 59 seconds Scope Out: 7:21:44 AM Total Procedure Duration Time 0 hours 36 minutes 11 seconds Findings: The perianal and digital rectal examinations were normal. A benign-appearing, intrinsic severe stenosis measuring 5 cm (in length) x 5 mm (inner diameter) was found at the splenic flexure and in the transverse colon and was traversed. Biopsies were taken with a cold forceps for histology. Verification of patient identification for the specimen was done. Estimated blood loss was minimal. A patchy area of granular mucosa was found in the sigmoid colon, at the splenic flexure, in the transverse colon, at the hepatic flexure and in the ascending colon. Biopsies were taken with a cold forceps for histology. Verification of patient identification for the specimen was done. Estimated blood loss was minimal. The terminal ileum appeared normal. Impression: - Stricture at the splenic flexure and in the transverse colon. Biopsied. - Granularity in the sigmoid colon, at the splenic flexure, in the transverse colon, at the hepatic flexure and in the ascending colon. Biopsied. - The examined portion of the ileum was normal. Recommendation: - Discharge patient to home. - Resume previous diet. - Continue present medications. - Await pathology results. - Repeat colonoscopy for surveillance. Procedure Code(s): --- Professional --- 39269, Colonoscopy, flexible; with biopsy, single or multiple CPT copyright 2021 [employer]. All rights reserved. The codes documented in this report are preliminary and upon meat clerk review may be revised to meet current compliance requirements. Kyler Chow DO 07/29/2024 7:29:31 AM This report has been signed electronically. Number of Addenda: 0 Note Initiated On: 07/29/2024 6:05 AM
--- NOTE | 2024-07-29 07:30 | OP.CCLET_ITS ---
07/29/2024 Bean John MD [address] [place] [address] [place] [address] Re : Colonoscopy procedure for Aayush Land Dear Dr. John This procedure was performed on Monday, July 29, 2024. My impressions and recommendations are as follows: Impressions : - Stricture at the splenic flexure and in the transverse colon. Biopsied. - Granularity in the sigmoid colon, at the splenic flexure, in the transverse colon, at the hepatic flexure and in the ascending colon. Biopsied. - The examined portion of the ileum was normal. Recommendations : - Discharge patient to home. - Resume previous diet. - Continue present medications. - Await pathology results. - Repeat colonoscopy for surveillance. My findings are described in the full procedure note, which is enclosed. If I can be of further assistance, please feel free to contact me at . Sincerely, Kyler Chow, 07/29/2024 7:29:31 AM This report has been signed electronically.
--- NOTE | 2024-07-29 07:37 | PCM.POSTANE2 ---
Anesthesia Postop Eval I Sum Postop Eval Completion status Anesthesia document: Postop Eval 1 completed: Yes Anesthesia Postop Eval I Summary Anesthesia Postop Eval I Summary: Anesthesia Postop Eval I: Assessment Summary Airway patent Yes 07/29/24 07:30 [email or web address] Spontaneous unlabored Yes 07/29/24 07:30 [email or web address] respirations Mental status Awake,Calm 07/29/24 07:30 [email or web address] nausea No 07/29/24 07:30 [email or web address] Vomiting No 07/29/24 07:30 [email or web address] Anesthesia Postop Eval I: Fluid Summary Crystalloid volume administer 800 07/29/24 07:30 [email or web address] (ml) Colloids volume administered ( ml) Blood Product volume administered (ml) Total IV fluid infused 800 07/29/24 07:30 [email or web address] Anesthesia Postop Eval I: Summary Notes Anesthesia Complication Yes 07/29/24 07:30 [email or web address] Anesthesia Complication vagal induced 07/29/24 07:30 [email or web address] Comment: bradycardia Post-operative progress note Anesthesia: Postop Eval II Evaluation Mental status: Awake Pain Level: 0 nausea: No Vomiting: No
== END 2024-07-29 08:03 | disposition home or self-care (01) ==
LOC: EN 05:23 → AC 05:26
PROVIDERS: PCP Internal Medicine; Referring Provider Internal Medicine; Visit Provider Internal Medicine Gastroenterology
PROC: 0DJD8ZZ Inspection of Lower Intestinal Tract, Via Natural or Artificial Opening Endoscopic (ICD-10-PCS; CPT 45378; principal; 2024-07-29 06:25)
DX: K22.710 Barrett's esophagus with low grade dysplasia (principal); K56.699 Other intestinal obstruction unspecified as to partial versus complete obstruction; J41.1 Mucopurulent chronic bronchitis; K58.0 Irritable bowel syndrome with diarrhea; K44.9 Diaphragmatic hernia without obstruction or gangrene; K63.89 Other specified diseases of intestine
CPT/HCPCS: 45380; 88305; 88312; 88342; J7120; J2405

== ENCOUNTER → 2024-08-05 | Outpatient (CLI) | payer OTHER, SELFPAY ==
[2024-08-05 12:06] LABS: Absolute Lymphocyte Count 2.15 X10^3/uL (0.83-4.51); Absolute Neutrophil Count 2.5 X10^3/uL (2.0-7.7); Basophil% 1.7 % (0-1); Eosinophil# 0.42 X10^3/uL; Eosinophils% 7.2 % (0-5); Hematocrit 48.2 % (40-54); Hemoglobin 15.8 g/dL (13.0-16.5); Lymphocyte # 2.15 X10^3/ul (0.83-4.51); Lymphocyte % 36.7 % (19-41); Mean Corp Hgb Conc 32.8 g/dL (32-36); Mean Corpuscular Hgb 30.8 pg (27.0-32.0); Mean Platelet Vol. 9.4 fl (6.2-12.0); Monocyte# 0.69 X10^3/uL; Monocyte% 11.8 % (0-10); NRBC Flagged by Analyzer 0 % (0-5); Neutrophil # 2.49 X10^3/uL (2.7-7.7); Neutrophil % 42.4 % (47-70); Platelet Count 209 K/mm3 (150-450); RBC Distribution Width CV 12.6 % (11.6-14.6); RBC Distribution Width SD 43.7 fl (35.1-43.9); Red Blood Count 5.13 M/mm3 (4.6-6.2); White Blood Count 5.9 K/mm3 (4.4-11.0)
== END | disposition home or self-care (01) ==
LOC: BIMLAB 09:49
PROVIDERS: PCP Internal Medicine; Referring Provider Internal Medicine; Visit Provider Internal Medicine
DX: J45.909 Unspecified asthma, uncomplicated (principal)
CPT/HCPCS: 36415; 85025

== ENCOUNTER 2025-01-13 05:25 | Day surgery (SDC) | payer OTHER, SELFPAY ==
[2025-01-13] VITALS (8 sets, daily range): BP systolic 103–135; BP diastolic 77–92; PULSE 73–84; RESP 16–18; TEMP 36.3–36.8; O2SAT 92–96; BMI 33.2
--- NOTE | 2025-01-13 06:24 | PRE.ANES_ITS ---
ASA Classification* ASA Classification ASA Classification: 2 Assessment & Plan Anesthesia* Anesthesia Assessment Anesthesia Assessment: Discussed sedation and/or anesthesia options, risks, benefits, and alternatives with patient/parents/legal guardian/POA. Questions invited. The patient/parents/legal guardian/POA seems to understand and agrees to proceed with anesthesia plan. Reviewed the physical assessment, medical history, allergy history and patient home medications list prior to surgery/procedure/anesthetic and documented any changes. Performed airway and anesthesia risk assessments. Anesthesia Type Anesthesia Type: General History Source History Obtained from:: Patient and Significant Other Anesthesia Focused Assessment* Temperature: 97.3 F Pulse Rate: 73 Blood Pressure: 135/87 Respiratory Rate: 16 Pulse Ox: 96 Airway Assessment Mouth opens: >3 cm Mallampati Score: II Teeth Condition: Intact Neck Range of motion (ROM): Full ROM Focused Labs Anesthesia Preop lab: CBC WBC 5.9 K/mm3 (4.4-11.0) 08/05/24 09:49 08/05/24 RBC 5.13 M/mm3 (4.6-6.2) 08/05/24 09:49 08/05/24 Hgb 15.8 g/dL (13.0-16.5) 08/05/24 09:49 08/05/24 Hct 48.2 % (40-54) 08/05/24 09:49 08/05/24 Plt Count 209 K/mm3 (150-450) 08/05/24 09:49 08/05/24 CHEMISTRY Potassium 4.2 mmol/L (3.5-5.1) 02/04/24 11:30 02/04/24 Sodium 140 mmol/L (136-145) 02/04/24 11:30 02/04/24 BUN 15 mg/dL (7-18) 02/04/24 11:30 02/04/24 Creatinine 0.99 mg/dL (0.70-1.30) 02/04/24 11:30 02/04/24 Glucose 93 mg/dL (74-106) 02/04/24 11:30 02/04/24 TSH 3.62 uIU/mL (0.358-3.74) 02/04/24 11:30 COAG Pre-Assessment Diagnosis/Proposed Procedure Planned Operative Procedure(s): EGD Anesthesia History Anesthesia History - records and tape recordings engineer: Anesthesia History - records and tape recordings engineer Hx Hospitalization No 01/09/25 12:11 Any Problems With Anesthesia No 01/09/25 12:11 Cholinesterase deficiency No 01/09/25 12:11 You/Your Family Experience No 01/09/25 12:11 fever (hyperthermia) with Relationship Recent Exposure to Contagious No 01/13/25 05:52 Disease Does patient have nerve No 01/09/25 12:11 stimulator Patient instructed to have device shut off --Does patient have Pacemaker No 01/13/25 05:52 or ICD? When Was Last Pacemaker Check QUESTION #4 FULL TEXT: You/Your Family Experience fever (hyperthermia) with Anesthesia Any additional information?: No Last Oral Intake Last Oral intake: Last Oral Intake NPO since 00:00 01/13/25 05:52 Meds taken in AM with sips of Yes 01/13/25 05:52 water? Meds patient instructed to see medlist 01/13/25 05:52 take am of surgery Any additional information?: No PONV PONV - records and tape recordings engineer: PONV - records and tape recordings engineer Female No 01/09/25 12:11 HX of Motion Sickness No 01/09/25 12:11 HX of N/V After Surgery No 01/09/25 12:11 Non-Smoker Yes 01/09/25 12:11 Duration of Surgery greater No 01/09/25 12:11 than 60 minutes Number of Risk Factors 1 01/09/25 12:11 PONV Score Low Risk 01/09/25 12:11 Any additional information?: No Height & Weight Height & Weight: Anesthesia: Height & Weight Height 5 ft 11 in 01/13/25 05:52 Weight: 108 kg 01/13/25 05:52 Body Mass Index (BMI) 33.2 01/13/25 05:52 Respiratory Assessment Respiratory Assessment - records and tape recordings engineer: Respiratory Tract Infection Hx - records and tape recordings engineer Hx Respiratory Tract Infection No 01/09/25 12:11 Any additional information?: No STOP Sleep Apnea STOP Sleep Apnea - records and tape recordings engineer: STOP Sleep Apnea - records and tape recordings engineer Hx Hypertension No 01/09/25 12:11 Hx Sleep Apnea No 01/09/25 12:11 CPAP BIPAP Do you snore loudly (louder No 01/09/25 12:11 than talking or can be heard Do you often feel tired/ No 01/09/25 12:11 fatigued/ sleepy during daytime? Has anyone observed you stop No 01/09/25 12:11 breathing during sleep? STOP Results Negative 01/09/25 12:11 QUESTION #5 FULL TEXT : Do you snore loudly (louder than talking or can be heard through closed doors)? 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 Specify any problems Hx of Preganancy in last 3 N/A 01/09/25 12:11 Months Nurse Filling Out Transfusion VCHRISTIN 01/09/25 12:11 & Questions: Date: 01/09/25 01/09/25 12:11 Time: 12:12 01/09/25 12:11 Patient unable to answer at this time (ie. confused, unrespo Any additional information?: No /Reproduction History /Reproductive History - records and tape recordings engineer: /Reproductive Hx- records and tape recordings engineer Hx Now No 01/09/25 12:11 Gestational Age (in weeks): EDC: Hx Hx Para Hx Section SAB No 01/09/25 12:11 Any additional information?: No Active Medications Active Medications: SEE CHART, reviewed with patient COUNTS INCLUDE 234 BEDS AT THE [facility] Medical History Erectile dysfunction COVID-19 Acute pharyngitis, unspecified Wears contact lenses Wears glasses History of Clostridium difficile infection Anxiety Alcohol use Thyroid disease History of hiatal hernia Gastric reflux Former smoker Asthma COPD (chronic obstructive pulmonary disease) Marijuana use Diarrhea Dry mouth Preventative health care Alcohol use Flu vaccine need Tinnitus Gout Hypothyroidism Depression Asthma COPD (chronic obstructive pulmonary disease) Home Medications ?Medication ?Instructions ?Recorded ?Last Taken ?Type albuterol sulfate 0.63 mg/3 mL 0.63 mg (3 mL) inhalati on Q4H PRN 03/25/21 Unknown Rx solution for nebulization shortness of breath or wheez ing #90 mL PEP device #1 ea 08/08/21 Unknown Rx colchicine 0.6 mg tablet 0.6 mg PO BID PRN gout 12/07 Unknown History thiamine HCl (vitamin B1) 100 mg 100 mg PO DAILY #90 t abs 12/08/21 Unknown Rx tablet fexofenadine 180 mg tablet 180 mg PO DAILY 06/09/22 Un known History (Selam Allergy) azelastine 137 mcg-fluticasone 50 1 spray intranasal B ID #3 device 07/30/23 Unknown Rx mcg/spray nasal spray (Dymista) allopurinol 100 mg tablet 100 mg PO DAILY #90 tabs 12/28 Unknown Rx quetiapine 25 mg tablet (Seroquel) 25 mg PO QHS PRN Sl eep #90 tabs 08/06/23 Unknown Rx sertraline 100 mg tablet 100 mg PO DAILY 08/29/23 Unk nown History fluticasone furoate 200 1 inh inhalation DAILY #1 de vice 05/19/24 01/13/25 Rx mcg-vilanterol 25 mcg/dose inhalation powder (Breo Ellipta) pantoprazole 40 mg tablet,delayed 40 mg PO BID 4 Unknown History release albuterol sulfate 90 mcg/actuation 2 puff inhalation Q 4H PRN 09/02/24 Unknown Rx aerosol inhaler (Ventolin HFA) shortness of breath or wheezing #3 ea mepolizumab 100 mg/mL subcutaneous 100 mg subcut Q4W # 1 mL 09/02/24 Unknown Rx auto-injector (Nucala) Synthroid 88 mcg tablet 88 mcg PO DAILY #90 tabs 01/13/25 Rx (levothyroxine) tiotropium bromide 2.5 2 inh inhalation QDAY #1 ea 12/19/24 01/13/25 Rx mcg/actuation mist for inhalation (Spiriva Respimat) montelukast 10 mg tablet 10 mg PO QPM #90 tabs Unknown Rx Allergy/AdvReac Type Severity Reaction Status Date / Time ampicillin Allergy Hives Verified 01/13/25 05:43 Family History (Reviewed 12/10/24 @ 09:04 by Khushbu Kumar IN [employer]ORE MARKETING ASSOCIATE, IN [employer]ORE MARKETING ASSOCIATE-C) Mother Anxiety and depression Thyroid disorder Cancer Father Heart disease Cancer Sister CVA (cerebral vascular accident) Surgical History Hx of colonoscopy Hx of hernia repair Hx of colonoscopy History of esophagogastroduodenoscopy H/O hernia repair Social History Smoking Status: Former smoker how long ago did patient quit smokin alcohol intake: current alcohol intake frequency: 0-2 drinks per day Alcohol type: beer and hard liquor details: 6 ounces of hard liquor daily substance use type: does not use what type of physical activity do you participate in: walking and weight training frequency: 3-4 times per week Prior Cardiac Testing/Procedures Prior Cardiac Testing/Procedures: Stress Test (had long time ago, patient reports negative) Review of Systems (Anesthesia) ROS Narrative System reviewed and no additional complaints, except as documented. Physical Exam Const General Appearance: in distress Resp normal respiratory effort, normal air movement and clear to auscultation bilaterally Cardio regular rate, regular rhythm, no murmurs and diaphoretic
--- NOTE | 2025-01-13 06:30 | EGD_PTH ---
PATIENT: WILVER SANTIAGO LOC: EN U#:[id number] AGE/SX: 69/M ROOM: RE01/13/[address]: Dr. Kyler Chow DO : 1955 BED: DIS: 01/13/2025 SPEC #: [id number] RECD: 01/13/25 09:51 STATUS: ROBER MEGHAN #: [id number] ERICA: 01/13/25 06:[address]: Kyler Chow DEPT: SURGICAL PATHOLOGY RECD BY: Polo Vaz ENTERED: 01/13/25 09:51 SP TYPE: EGD BIOPSY ISMAEL DR: Dr. Bean John MD Tissues: Esophagus, NOS Procedures: Surgery Specimen Level IV HEADER OPERATION: EGD with biopsies PRE-OP DIAGNOSIS: Castillo's esophagus with low grade dysplasia TISSUE SUBMITTED: Distal esophagus biopsy MICROSCOPIC DIAGNOSIS DISTAL ESOPHAGUS, BIOPSY: * Benign squamous mucosa and columnar mucosa. * Negative for dysplasia, negative for goblet cell metaplasia. MICROSCOPIC DESCRIPTION Slides are reviewed. GROSS DESCRIPTION Received in fixative is one container labeled with the patient's name and designated Distal esophagus biopsy. The specimen consists of multiple irregular fragments of light raya soft tissue that in aggregate measure 0.8 x 0.3 x 0.2 cm. The specimen is totally submitted in one cassette. mr 01/13/2025 CPT:91832
--- NOTE | 2025-01-13 06:46 | PCM.HP.STD ---
HPI - General General Date of Admission: 01/13/25 Date of Service: 01/13/25 Chief Complaint: Castillo's esophagus HPI Narrative WILVER SANTIAGO, is a 69 M who presents today for surveillance of Castillo's esophagus. GI Dr. Mejia workup: ? Colonoscopy 11.04.18 without pathologic changes/colitis.? *BGI established 04.26.22 with loose stools; no medications attempted, working at reducing alcohol intake; marijuana gummies. Biochemical CRP, LDH, ESR, MAKENZIE comp, ANCA, GAME, CA 19-9 all without pertinent abnormality.? CRP H 4.52? Stool studies calprotectin, elastase, lactoferrin WNL EGD 8 moderate Schatzki ring, Savary dilator 51F; irregular Zline; medium hiatal hernia; short-segment Castillo?s esophagus with low grade dysplasia; gastritis. H.Pylori negative.? OV 07.24.22 continues with urgent diarrhea three times a week with intermittent bloating. Start colestipol. OV 09.21.22 Continue colestipol, start fiber refer to nutrition ? EGD 2 short-segment Castillo?s, RFA; small hiatal hernia. No specimens. OV 3 Repeat EGD ? EGD 7 Short-segment Castillo?s, RFA; hiatal hernia. No specimens. Contact 05.17.23 with sore throat. Start magic mouthwash OV 8.. denying difficulty with any active symptoms at the moment. He is seeing a fisher eel spear who is recommending avoidance of raw vegetables; however, his has been preparing a lot of salads. Continues with PPI BID ? EGD 11.11.27 short-segment Castillo?s, RFA; small hiatal hernia. Metaplasia neg ? EGD 01.09.24 irregular Zline 39cm. metaplasia neg. OV 01.18.24 reports he is doing well without current symptoms; PPI use continues Cosigner Signature (if applicable): [facility] Medical History Erectile dysfunction COVID-19 Acute pharyngitis, unspecified Wears contact lenses Wears glasses History of Clostridium difficile infection Anxiety Alcohol use Thyroid disease History of hiatal hernia Gastric reflux Former smoker Asthma COPD (chronic obstructive pulmonary disease) Marijuana use Diarrhea Dry mouth Preventative health care Alcohol use Flu vaccine need Tinnitus Gout Hypothyroidism Depression Asthma COPD (chronic obstructive pulmonary disease) Home Medications ?Medication ?Instructions ?Recorded ?Last Taken ?Type albuterol sulfate 0.63 mg/3 mL 0.63 mg (3 mL) inhalation Q4H PRN 03/25/21 Unknown Rx solution for nebulization shortness of breath or wheezing #90 mL PEP device #1 ea 08/08/21 Unknown Rx colchicine 0.6 mg tablet 0.6 mg PO BID PRN gout 12/07/21 Unknown History thiamine HCl (vitamin B1) 100 mg 100 mg PO DAILY #90 tabs 12/08/21 Unknown Rx tablet fexofenadine 180 mg tablet 180 mg PO DAILY 06/09/22 Unknown History (Selam Allergy) azelastine 137 mcg-fluticasone 50 1 spray intranasal BID #3 device 07/30/23 Unknown Rx mcg/spray nasal spray (Dymista) allopurinol 100 mg tablet 100 mg PO DAILY #90 tabs 08/06/23 Unknown Rx quetiapine 25 mg tablet (Seroquel) 25 mg PO QHS PRN Sleep #90 tabs 08/06/23 Unknown Rx sertraline 100 mg tablet 100 mg PO DAILY 08/29/23 Unknown History fluticasone furoate 200 1 inh inhalation DAILY #1 device 05/19/24 01/13/25 Rx mcg-vilanterol 25 mcg/dose inhalation powder (Breo Ellipta) pantoprazole 40 mg tablet,delayed 40 mg PO BID 07/24/24 Unknown History release albuterol sulfate 90 mcg/actuation 2 puff inhalation Q4H PRN 09/02/24 Unknown Rx aerosol inhaler (Ventolin HFA) shortness of breath or wheezing #3 ea mepolizumab 100 mg/mL subcutaneous 100 mg subcut Q4W #1 mL 09/02/24 Unknown Rx auto-injector (Nucala) Synthroid 88 mcg tablet 88 mcg PO DAILY #90 tabs 10/20/24 01/13/25 Rx (levothyroxine) tiotropium bromide 2.5 2 inh inhalation QDAY #1 ea 12/19/24 01/13/25 Rx mcg/actuation mist for inhalation (Spiriva Respimat) montelukast 10 mg tablet 10 mg PO QPM #90 tabs 12/29/24 Unknown Rx Allergy/AdvReac Type Severity Reaction Status Date / Time ampicillin Allergy Hives Verified 01/13/25 05:43 Family History Mother Anxiety and depression Thyroid disorder Cancer Father Heart disease Cancer Sister CVA (cerebral vascular accident) Surgical History Hx of colonoscopy Hx of hernia repair Hx of colonoscopy History of esophagogastroduodenoscopy H/O hernia repair Social History Smoking Status: Former smoker how long ago did patient quit smokin alcohol intake: current alcohol intake frequency: 0-2 drinks per day Alcohol type: beer and hard liquor details: 6 ounces of hard liquor daily substance use type: does not use what type of physical activity do you participate in: walking and weight training frequency: 3-4 times per week ROS Constitutional Constitutional: Denies fatigue, fever(s), poor appetite, weight gain or weight loss Gastrointestinal Gastrointestinal: Denies belching, bloating, change in bowel habits, change in stool character, chewing difficulty, coffee ground emesis, constipation, cramping, diarrhea, dyspepsia, dysphagia, early satiety, excessive flatus, fecal incontinence, heartburn, hematemesis, hematochezia, hemorrhoids, loose stools, melena, nausea, odynophagia, rectal bleeding, tenesmus, vomiting or weight changes Vital Signs Vital Signs Vital Signs: 01/13/25 05:52 01/13/25 05:52 01/13/25 06:29 Temperature 97.3 F L 97.3 F L Temperature Source Temporal Pulse Rate 73 73 Respiratory Rate 16 16 Respiratory Pattern Normal Blood Pressure 135/87 H 135/87 H Blood Pressure Mean 103 Blood Pressure Source Monitor Blood Pressure Position Semi-Fowlers Blood Pressure Location Left Arm Pulse Ox 96 96 Oxygen Delivery Method Room Air Weight Weight: 238 lb 1.588 oz Body Mass Index (BMI) 33.2 Physical Exam Const alert, oriented x3, no apparent distress and healthy appearing General Appearance: cooperative GI normal to inspection, nondistended, normoactive bowel sounds, soft to palpation, non-tender and non-distended Percussion: normal to percussion Rectal Exam: deferred Assessment & Plan Assessment/Plan (1) Barretts esophagus: QUALIFIERS: Castillo's esophagus type: with low grade dysplasia Qualified Code(s): K22.710 - Castillo's esophagus with low grade dysplasia PLAN: Assessment and Plan Assessment and Plan (1) 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 His last biopies displayed Fragments of gastroesophageal mucosa with moderate chronic inflammation. Intestinal metaplasia (goblet cell metaplasia) not identified. He will have a repeat egd in one year. (2) Irritable bowel syndrome with diarrhea: Status: Chronic Plan: Bowel syndrome with diarrhea. It does not appear to be secondary to hypergastrinemia. However it could be secondary to diet that she is getting from alcohol on a daily basis. We have discussed some diet changes and reducing the amount of sugar that he takes and on a daily basis. I would not change it at this time. I will add colestipol either midday or at night for the next 2 months. (3) Hiatal hernia: Status: Chronic Plan: I do not think surgical evaluation at this time. He will need esophageal manometry prior to any evaulation. (4) Barretts esophagus: Status: Acute Qualifiers: Castillo's esophagus type: with low grade dysplasia Qualified Code(s): K22.710 - Castillo's esophagus with low grade dysplasia Plan: He was identified as having short segment Castillo's esophagus on his recent upper endoscopy. He was Ki-67 positive. He will go on a surveillance program of once a year endoscopy we will start him on twice a day PPI therapy. Initial gastrin level was 21. We evaluated his diarrhea. We will follow-up to see how his diarrhea changes while he is on this medicine for the next 8 weeks. (5) Chronic bronchitis: Status: Chronic Qualifiers: Chronic bronchitis type: mucopurulent Qualified Code(s): J41.1 - Mucopurulent chronic bronchitis Plan:
--- NOTE | 2025-01-13 07:06 | OP.CCLET_ITS ---
01/13/2025 Bean John MD [address] [place] [address] [place] [address] Re : Upper GI endoscopy procedure for Aayush Land Dear Dr. Jonh This procedure was performed on Monday, January 13, 2025. My impressions and recommendations are as follows: Impressions : - Z-line irregular, 40 cm from the incisors. Biopsied. - Small hiatal hernia. - Normal stomach. - Normal second portion of the duodenum. Recommendations : - Discharge patient to home. - Resume previous diet. - Continue present medications. - Await pathology results. - Repeat upper endoscopy in 1.5 years for surveillance. My findings are described in the full procedure note, which is enclosed. If I can be of further assistance, please feel free to contact me at . Sincerely, Kyler Chow, 01/13/2025 7:05:54 AM This report has been signed electronically.
--- NOTE | 2025-01-13 07:06 | OP.EGD_ITS ---
Patient Name: Aayush Land Procedure Date: 01/13/2025 6:14 AM Date of : 1955 Age: 69 Procedure: Upper GI endoscopy Indications: Follow-up of Castillo's esophagus, Castillo's esophagus with low grade dysplasia, Surveillance for malignancy due to personal history of Castillo's esophagus Providers: Kyler Chow DO Referring MD: Bean John MD Medicines: Monitored Anesthesia Care Patient Profile: This is a 69 year old male. Refer to note in patient chart for documentation of history and physical. Patient has symptoms of chronic heartburn. His most recent EGD for Castillo's ablation and EGD for Castillo's biopsy was one year ago. Complications: No immediate complications. Procedure: Pre-Anesthesia Assessment: - Prior to the procedure, a History and Physical was performed, and patient medications and allergies were reviewed. The patient is competent. The risks and benefits of the procedure and the sedation options and risks were discussed with the patient. All questions were answered and informed consent was obtained. Patient identification and proposed procedure were verified by the physician in the pre-procedure area. Mental Status Examination: alert and oriented. Airway Examination: normal oropharyngeal airway and neck mobility. Respiratory Examination: clear to auscultation. CV Examination: normal. Prophylactic Antibiotics: The patient does not require prophylactic antibiotics. Prior Anticoagulants: The patient has taken no anticoagulant or antiplatelet agents. ASA Grade Assessment: II - A patient with mild systemic disease. After reviewing the risks and benefits, the patient was deemed in satisfactory condition to undergo the procedure. The anesthesia plan was to use monitored anesthesia care (MAC). Immediately prior to administration of medications, the patient was re-assessed for adequacy to receive sedatives. The heart rate, respiratory rate, oxygen saturations, blood pressure, adequacy of pulmonary ventilation, and response to care were monitored throughout the procedure. The physical status of the patient was re-assessed after the procedure. After obtaining informed consent, the endoscope was passed under direct vision. Throughout the procedure, the patient's blood pressure, pulse, and oxygen saturations were monitored continuously. The Endoscope was introduced through the mouth, and advanced to the second part of duodenum. The upper GI endoscopy was accomplished without difficulty. The patient tolerated the procedure well. Scope In: 6:57:47 AM Scope Out: 7:00:57 AM Total Procedure Duration Time 0 hours 3 minutes 10 seconds Findings: The Z-line was irregular and was found 40 cm from the incisors. Biopsies were taken with a cold forceps for histology. Verification of patient identification for the specimen was done. Estimated blood loss was minimal. A small hiatal hernia was present. The entire examined stomach was normal. The second portion of the duodenum was normal. Impression: - Z-line irregular, 40 cm from the incisors. Biopsied. - Small hiatal hernia. - Normal stomach. - Normal second portion of the duodenum. Recommendation: - Discharge patient to home. - Resume previous diet. - Continue present medications. - Await pathology results. - Repeat upper endoscopy in 1.5 years for surveillance. Procedure Code(s): --- Professional --- 54327, Esophagogastroduodenoscopy, flexible, transoral; with biopsy, single or multiple CPT copyright 2021 [employer]. All rights reserved. The codes documented in this report are preliminary and upon certified medical records coder review may be revised to meet current compliance requirements. Kyler Chow DO 01/13/2025 7:05:54 AM This report has been signed electronically. Number of Addenda: 0 Note Initiated On: 01/13/2025 6:14 AM
--- NOTE | 2025-01-13 07:11 | PCM.POST.ANE ---
Anesthesia: Postop Eval I Current Vital Signs Temperature: 97.5 F Pulse Rate: 82 Blood Pressure: 110/77 Respiratory Rate: 16 Pulse Ox: 93 Oxygen Delivery Method: Room Air Assessment Airway patent: Yes Spontaneous unlabored respirations: Yes Mental status: Awake and Calm nausea: No Vomiting: No Anesthesia Complication: No Fluid Hydration Crystalloid volume administer (ml): 30 Total IV fluid infused: 30 Progress Note Anesthesia document: Postop Eval 1 completed: Yes
--- NOTE | 2025-01-13 07:57 | PCM.POSTANE2 ---
Anesthesia Postop Eval I Sum Postop Eval Completion status Anesthesia document: Postop Eval 1 completed: Yes Anesthesia Postop Eval I Summary Anesthesia Postop Eval I Summary: Anesthesia Postop Eval I: Assessment Summary Airway patent Yes 01/13/25 07:12 [email or web address] Spontaneous unlabored Yes 01/13/25 07:12 [email or web address] respirations Mental status Awake,Calm 01/13/25 07:12 [email or web address] nausea No 01/13/25 07:12 [email or web address] Vomiting No 01/13/25 07:12 [email or web address] Anesthesia Postop Eval I: Fluid Summary Crystalloid volume administer 30 01/13/25 07:12 [email or web address] (ml) Colloids volume administered ( ml) Blood Product volume administered (ml) Total IV fluid infused 30 01/13/25 07:12 [email or web address] Anesthesia Postop Eval I: Summary Notes Anesthesia Complication No 01/13/25 07:12 [email or web address] Anesthesia Complication Comment: Post-operative progress note Anesthesia: Postop Eval II Evaluation Mental status: Awake and Calm Pain Level: 0 nausea: No Vomiting: No Complications Anesthesia Complication: No
== END 2025-01-13 07:43 | disposition home or self-care (01) ==
LOC: EN 05:26 → AC 05:27
PROVIDERS: PCP Internal Medicine; Referring Provider Internal Medicine; Visit Provider Internal Medicine Gastroenterology
PROC: 0DJ08ZZ Inspection of Upper Intestinal Tract, Via Natural or Artificial Opening Endoscopic (ICD-10-PCS; CPT 43235; principal; 2025-01-13 06:25)
DX: K22.710 Barrett's esophagus with low grade dysplasia (principal); J44.9 Chronic obstructive pulmonary disease, unspecified; K44.9 Diaphragmatic hernia without obstruction or gangrene; M10.9 Gout, unspecified; Z87.891 Personal history of nicotine dependence; K21.9 Gastro-esophageal reflux disease without esophagitis; Z79.899 Other long term (current) drug therapy; F41.9 Anxiety disorder, unspecified; F32.A Depression, unspecified; K58.0 Irritable bowel syndrome with diarrhea; K22.89 Other specified disease of esophagus
CPT/HCPCS: 43239; 88305; A4216; J2405

== ENCOUNTER → 2025-02-04 | Outpatient (CLI) | payer OTHER, SELFPAY ==
[2025-02-04 12:41] LABS: Absolute Lymphocyte Count 1.87 X10^3/uL (0.83-4.51); Absolute Neutrophil Count 4.4 X10^3/uL (2.0-7.7); Basophil# 0.08 X10^3/uL; Basophil% 1.1 % (0-1); Eosinophil# 0.11 X10^3/uL; Eosinophils% 1.5 % (0-5); Hemoglobin 15.7 g/dL (13.0-16.5); Lymphocyte # 1.87 X10^3/ul (0.83-4.51); Lymphocyte % 25.9 % (19-41); Mean Corp Hgb Conc 33.4 g/dL (32-36); Mean Corpuscular Hgb 31.7 pg (27.0-32.0); Mean Corpuscular Volume 94.8 fL (80-94); Mean Platelet Vol. 9.4 fl (6.2-12.0); Monocyte# 0.75 X10^3/uL; Monocyte% 10.4 % (0-10); NRBC Flagged by Analyzer 0 % (0-5); Neutrophil # 4.38 X10^3/uL (2.7-7.7); Neutrophil % 60.8 % (47-70); Platelet Count 229 K/mm3 (150-450); RBC Distribution Width CV 13.6 % (11.6-14.6); RBC Distribution Width SD 47.1 fl (35.1-43.9); Red Blood Count 4.96 M/mm3 (4.6-6.2); White Blood Count 7.2 K/mm3 (4.4-11.0)
[2025-02-04 16:52] LABS: Cholesterol 250 mg/dL (<=200); High Density Lipoprotein 102 mg/dL; Low Density Lipoprotein Calc. 126 mg/dL; Triglycerides 108 mg/dL; Uric Acid 6.2 mg/dL (3.5-7.2); Very Low Density Lipoprotein 22 mg/dL (5-40); Vitamin D,25 Hydroxy 34.1 ng/mL (30-100); cholesterol:hdl ratio screen 2.45
[2025-02-04 17:58] LABS: ALB/GLOB Ratio 1.4 RATIO (0.9-2.4); AST(SGOT) 37 U/L (<=37); Alanine Aminotransfer ALT/SGPT 36 U/L (<=46); Albumin, Serum 4.4 g/dL (3.4-4.8); Alkaline Phosphatase 77 U/L (40-129); Anion Gap 13 (5-15); BUN 16 mg/dL (4-19); BUN/Creat Ratio 12.3 RATIO (10-20); Calcium,Total 9.7 mg/dL (7.6-11.0); Carbon Dioxide 23.1 mmol/L (21.0-32.0); Chloride 104 mmol/L (98-108); Creatinine, Serum 1.33 mg/dL (0.70-1.20); EST Glomerular Filtration Rate 58 (>60); Globulin 3.1 g/dL (2.2-4.2); Glucose 85 mg/dL (70-99); Potassium 4.7 mmol/L (3.3-5.1); Protein, Total 7.5 g/dL (5.9-8.4); Sodium Level 141 mmol/L (133-145); Total Bilirubin 0.47 mg/dL (0.00-1.30)
== END | disposition home or self-care (01) ==
LOC: BIMLAB 08:29
PROVIDERS: PCP Internal Medicine; Referring Provider Internal Medicine; Visit Provider Internal Medicine
DX: F41.9 Anxiety disorder, unspecified (principal); F32.9 Major depressive disorder, single episode, unspecified; K58.0 Irritable bowel syndrome with diarrhea; Z13.6 Encounter for screening for cardiovascular disorders; M1A.9XX0 Chronic gout, unspecified, without tophus (tophi)
CPT/HCPCS: 36415; 80053; 80061; 82306; 84439; 84443; 84550; 85025

== ENCOUNTER → 2025-03-27 | Outpatient (CLI) | payer OTHER, SELFPAY | END | disposition home or self-care (01) | LOC: LAB 11:36 | PROVIDERS: PCP Internal Medicine; Referring Provider Internal Medicine; Visit Provider Internal Medicine | DX: E03.9 Hypothyroidism, unspecified (principal) | CPT/HCPCS: 36415; 84443 ==